=== PATIENT | female | born 1950 | race Caucasian/White ===

== ENCOUNTER 2017-09-08 13:17 | Emergency (ER) | payer MEDICARE ==
[~2017-09-08] VITALS: Ht 167.6 cm; Wt 103.4 kg
--- OUTSIDE RECORDS SUMMARY | 2017-09-08 13:20 | XMS REPORT | Summary of Care ---
Author Author ALLY LONGO M.D. Unknown Address Unknown Phone Unavailable Care Team Providers Care Supervisor Pleating Name Role Phone ALLY LONGO M.D. Unavailable Unavailable CHINMAY ARROYO M.D. 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 Right knee DJD (715.96, M17.11) Status: Active Leg swelling (729.81, M79.89) Status: Active Pain of left calf (729.5, M79.662) Status: Active Edema of right lower extremity (782.3, R60.0) Status: Active Pain of toe of left foot (729.5, M79.675) Status: Active Contusion of knee, left (924.11, S80.02XA) Status: Active Closed nondisplaced fracture of middle phalanx of lesser toe of left foot, initial encounter (826.0, S92.525A) Status: Active Primary localized osteoarthritis of right knee (715.16, M17.11) Status: Active Medications Name Dates Details Aleve TABS Active TraMADol HCl - 50 MG Oral Tablet * Refills: 0 Active Pennsaid 2 % Transdermal Solution Apply 2 pumps to affected area twice a day * Quantity: 1 Refills: 3 CHINMAY ARROYO M.D. * Start : 06-Sep-2015 Active 112 GM Pump Btl Gabapentin 100 MG TABS * Refills: 0 Active Verapamil HCl ER 180 MG Oral Tablet Extended Release * Refills: 0 Active Indapamide 2.5 MG Oral Tablet * Refills: 0 Active Simvastatin 40 MG Oral Tablet * Refills: 0 Active CloNIDine HCl - 0.1 MG Oral Tablet * Refills: 0 Active ROPINIRole HCl - 1 MG Oral Tablet * Refills: 0 Active ROPINIRole HCl - 0.5 MG Oral Tablet * Refills: 0 Active Metrogel 0.75 % Gel * Refills: 0 Active Tylenol Arthritis Pain 8 Hour TBCR * Refills: 0 Active Aspirin 81 MG TABS * Refills: 0 Active Iron TABS * Refills: 0 Active Hydrocodone-Acetaminophen 10-325 MG Oral Tablet take 1-2 tablets every 6 hour prn pain * Quantity: 60 Refills: 0 DONTA M.D., ALLY * Start : 20-Dec-2016 Active Diclofenac Sodium 1 % Transdermal Gel APPLY TO LOWER EXTREMITIES, 4 GM OF GEL TO AFFECTED AREA 4 TIMES DAILY. DO NOT APPLY MORE THAN 16 GM DAILY TO ANY ONE AFFECTED JOINT. * Quantity: 5 Refills: 1 DONTA M.D., ALLY * Start : 31-Jan-2017 Active 100 GM Tube Hydrocodone-Acetaminophen 10-325 MG Oral Tablet take 1-2 tablets every 6 hour prn pain * Quantity: 40 Refills: 0 DONTA M.D., ALLY * Start : 31-Jan-2017 Active Gabapentin 300 MG Oral Capsule TAKE ONE CAPSULE BY MOUTH THREE TIMES A DAY * Quantity: 90 Refills: 1 DONTA M.D., ALLY * Start : 21-Jun-2017 Active Gabapentin 300 MG Oral Capsule TAKE 1 CAPSULE 3 TIMES DAILY. * Quantity: 90 Refills: 2 DONTA M.D., ALLY * Start : 28-May-2017 Active Allergies and Adverse Reactions Name Dates Details Bactrim (Allergy) Status: Active Macrobid (Allergy) Status: Active Past Medical History Name Dates Details History of hypertension (V12.59, Z86.79) Status: Resolved Procedures Procedure Dates Details History of Knee Surgery Completed Immunization Name Dates Details Immunizations not documented Family History Name Dates Details No pertinent family history Status: Active Name Dates Details No pertinent family history Status: Active Social History Name Dates Details - Status: Name Dates Details Never smoker Vital Signs Date Test Result Details [id number] BP Systolic 154 mm[Hg] Status: BP Diastolic 75 mm[Hg] Status: Height 64 in Status: Weight 232 lb Status: Body Mass Index Calculated 39.82 kg/m2 Status: Body Surface Area Calculated 2.08 m2 Status: Heart Rate 74 /min Status: Results Date Description Value Details [id number] [U] XRAY TOE(S) 2 VWS LEFT [id number] XR TOE(S) 2 VWS LEFT Images acquired, not reported on this accession number. [id number] [U] XRAY KNEE 3 VWS LEFT [id number] XR KNEE 3 VWS LEFT Images acquired, not reported on this accession number. Plan of Care Name Dates Details Planned Observations Planned Goals not documented Planned Encounters Appointment; ALLY LONGO M.D. On: 16-Jan-2018 10:30 Interventions Provided Labs/Procedures/Imaging* [U] XRAY KNEE 3 VWS LEFT [id number]; Done: 18 Jul 2017 * [U] XRAY TOE(S) 2 VWS LEFT [id number]; Done: 18 Jul 2017 Instructions* Patient Specific Education Given; Done: 25 Jul 2017 Plan* Completed at Today's Appointment: * buck tape * Patient Education/Instructions: * Patient Education Provided * Reassurance * Physical Activity/ Sports Clearance: Physical Activity: Home exercise program and Patient advised of activity modifications * Patient/Parent to call or return with any abnormal changes * continue to see public relations professional for neuritis * Follow Up: * Return to the clinic in 6 months or as needed. Instructions Name Dates Details Instructions not documented Encounters Appointment; CHINMAY ARROYO M.D. Encounter Diagnosis: Problem not documented On: 01-Sep-2015 10:45 Appointment; ALLY LONGO M.D. Encounter Diagnosis: Problem not documented On: 15-Nov-2016 9:45 Appointment; ALLY LONGO M.D. Encounter Diagnosis: Problem not documented On: 05-Dec-2016 9:00 Appointment; ALLY LONGO M.D. Encounter Diagnosis: Problem not documented On: 20-Dec-2016 10:15 Appointment; ALLY LONGO M.D. Encounter Diagnosis: Problem not documented On: 31-Jan-2017 10:15 Appointment; ALLY LONGO M.D. Encounter Diagnosis: Problem not documented On: 21-Mar-2017 10:15 Appointment; ALLY LONGO M.D. Encounter Diagnosis: Problem not documented On: 18-Jul-2017 10:30
== END 2017-09-08 14:01 | disposition home or self-care (01) ==
LOC: FSED 13:17
DX: R30.0 Dysuria (principal); M54.5 Low back pain
CPT/HCPCS: 81003; 99283

== ENCOUNTER 2018-11-08 11:35 | Emergency (ER) | payer MEDICARE ==
[~2018-11-08] VITALS: Ht 167.6 cm; Wt 103.4 kg
--- OUTSIDE RECORDS SUMMARY | 2018-11-08 11:38 | XMS REPORT | Clinical Summary ---
Author Author [facility] Address Unknown Phone Unavailable Care Team Providers Care Preload Supervisor Name Role Phone PCP Unavailable Allergies Not on File Medications Not on file Active Problems Not on file Social History Date Tobacco Use Types Packs/Day Years Used Never Assessed Sex Assigned at Date Recorded Not on file Industry Job Start Date Occupation Not on file Not on file Not on file Travel End Travel History Travel Start No recent travel history available. Last Filed Vital Signs Not on file Plan of Treatment Care Team Description Date Type Specialty Jacquelin Paredes MD [address] [address] [phone] 12/12/2018 Hospital Gastroenterology Encounter Jacquelin Paredes MD [address] [address] [phone] ENDOSCOPY,CAPSULE PH MONITORING 12/12/2018 Surgery Gastroenterology Jacquelin Paredes MD [address] [address] [phone] 12/16/2018 Hospital Gastroenterology Encounter Jacquelin Paredes MD [address] [address] [phone] REMOVAL,48HR PH GARZON CAPSULE 12/16/2018 Surgery Gastroenterology Results Not on fileafter 11/07/2017 Insurance Payer Benefit Subscriber ID Type Phone Address Plan / Group [employer] - MEDICARE MGD HU[employer]NA xxxxxxxxx [facility] MEDICARE Contracted ADV
--- OUTSIDE RECORDS SUMMARY | 2018-11-08 11:39 | XMS REPORT | Continuity of Care Document ---
Author Author [employer] Address Unknown Phone Unavailable Care Team Providers Care Vision Impaired Teacher Name Role Phone Expert Medical Navigation Unavailable Unavailable Problems Problem Status Onset Date Classification Date Reported Comments Source [place] Active 09/04/2018 [facility] CHEST PAIN Active 09/04/2018 [facility] DX: M25.562=PAIN IN LEFT KNEE RT TKR Active 06/09/2018 [facility] M79.642 Active 05/27/2018 [facility] Low back pain 01/01/2018 07/15/2018 [facility] DX: M54.5=LOW BACK PAIN Active 12/05/2017 [facility] RT KNEE Active 12/20/2016 [facility] RT KNEE OA Active 12/20/2016 [facility] Discharge Diagnosis: Acute postoperative pain of right knee 12/13/2016 12/16/2016 [facility] Discharge Diagnosis: Acute post-operative pain 12/13/2016 12/16/2016 [facility] Discharge Diagnosis: Elevated blood pressure 12/13/2016 12/16/2016 [facility] KNEE PAIN Active 12/13/2016 [facility] RT KNEE OSTEOARTHRITIS Active 11/26/2016 [facility] DX: M79.89=OTHER SPECIFIED SOFT TISSUE D Active 11/20/2016 [facility] 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 09/22/2015 [facility] PELVIC MASS / ROUTINE Active 04/20/2015 [facility] OSTEOPOROSIS Active 03/16/2013 [facility] SCREENING Active 03/05/2013 [facility] SWELLING, PAIN Active 04/15/2012 [facility] Dyslipidemia Active Problem 10/14/2018 [facility] HTN (Confirmed) Active Problem 10/14/2018 [facility] Menopause Resolved Problem 10/14/2018 [facility] Mitral valve prolapse Active Problem 10/14/2018 [facility] Morbid obesity Active Problem 10/14/2018 [facility] Osteoarthritis Active Problem 10/14/2018 [facility] Restless leg syndrome Active Problem 10/14/2018 [facility] Spondylosis without myelopathy or radiculopathy, lumbar region 07/15/2018 [facility] Osteophyte, vertebrae 07/15/2018 [facility] Spinal stenosis, lumbar region without neurogenic claudication 07/15/2018 [facility] ENCNTR SCREEN MAMMOGRAM FOR MALIGNANT NE Active [facility] GENERALIZED INTRA-ABD AND PELVIC SWELLIN Active [facility] RT KNEE, TORN MENISCUS Active [facility] OTHER SPONDYLOSIS WITH MYELOPATHY, CERVI Active [facility] PAIN IN LEFT LOWER LEG Active [facility] UNILATERAL PRIMARY OSTEOARTHRITIS, RIGHT Active [facility] OTHER SPECIFIED SOFT TISSUE DISORDERS Active [facility] ACUTE MYOCARDIAL INFARCTION, UNSPECIFIED Active [facility] Medications Medication Details Route Status Patient Instructions Ordering Provider Order Date Source simvastatin 40 mg oral tablet =1 tab, PO, Daily, # 90 tab, Pharmacy: [place] [id number] Active 09/29/2018 [facility] lisinopril 10 mg oral tablet 10 mg=1 tab, PO, Daily, # 30 tab, 0 Refill(s), Pharmacy: [place] [id number] Active 09/06/2018 [facility] spironolactone 25 mg oral tablet 25 mg=1 tab, PO, Daily, # 30 tab, 0 Refill(s), Pharmacy: [place] [id number] Active 09/06/2018 [facility] metoprolol tartrate 50 mg oral tablet 50 mg=1 tab, PO, Q12H, # 60 tab, 0 Refill(s), Pharmacy: [place] [id number] Active 09/06/2018 [facility] potassium chloride 20 mEq oral tablet, extended release 20 mEq, 1 tab, Route: PO, Drug form: ERTAB, BID, Dosing Weight 107.318, kg, Start date: 09/06/18 9:00:00 CDT, Duration: 30 day, Stop date: 10/05/18 17:00:00 CDTNotes: (Same as: K-Dur 20) "Do Not Crush" Give with food and full glass of water For patients unable to swallow tablet, dissolve in one half glass of water. Allow about 2 minutes for the tablets to disintegrate. Stir before giving to prepare slurry and administer. Please exclude Patients with feeding tube less than 14 Lebanese (Dobhoff, J-tube etc) and pediatric and patients. Inactive 09/06/2018 [facility] Lisinopril 10 mg, 2 tab, Route: PO, Drug form: TAB, Daily, Dosing Weight 107.318, kg, Start date: 09/06/18 9:00:00 CDT, Duration: 30 day, Stop date: 10/05/18 9:00:00 CDTNotes: (Same as: Prinivil, Zestril) Inactive 09/06/2018 [facility] Hydrochlorothiazide 25 MG / Lisinopril 20 MG Oral Tablet 1 tab, Route: PO, Drug Form: TAB, Dosing Weight 107.318, kg, Daily, Start date: 09/06/18 9:00:00 CDT, Duration: 30 day, Stop date: 10/05/18 9:00:00 CDT No Longer Active 09/06/2018 [facility] Potassium Chloride 20 mEq, 1 tab, Route: PO, Drug form: ERTAB, Daily, Dosing Weight 107.318, kg, Start date: 09/06/18 9:00:00 CDT, Duration: 30 day, Stop date: 10/05/18 9:00:00 CDTNotes: (Same as: K-Dur 20) "Do Not Crush" Give with food and full glass of water For patients unable to swallow tablet, dissolve in one half glass of water. Allow about 2 minutes for the tablets to disintegrate. Stir before giving to prepare slurry and administer. Please exclude Patients with feeding tube less than 14 Lebanese (Dobhoff, J-tube etc) and pediatric and patients. No Longer Active 09/06/2018 [facility] Aldactone 25 mg, 1 tab, Route: PO, Drug form: TAB, Daily, Dosing Weight 107.318, kg, Start date: 09/06/18 9:00:00 CDT, Duration: 30 day, Stop date: 10/05/18 9:00:00 CDTNotes: (Same As: Aldactone) Inactive 09/06/2018 [facility] potassium chloride 20 mEq oral tablet, extended release 20 mEq, 1 tab, Route: PO, Drug form: ERTAB, ONCE, Dosing Weight 107.318, kg, Start date: 09/05/18 21:38:00 CDT, Stop date: 09/05/18 21:38:00 CDTNotes: (Same as: K-Dur 20) "Do Not Crush" Give with food and full glass of water For patients unable to swallow tablet, dissolve in one half glass of water. Allow about 2 minutes for the tablets to disintegrate. Stir before giving to prepare slurry and administer. Please exclude Patients with feeding tube less than 14 Lebanese (Dobhoff, J-tube etc) and pediatric and patients. Inactive 09/06/2018 [facility] DME Rx-external wearable defibrillator Inactive 09/06/2018 [facility] Rx-external wearable defibrillator Inactive 09/06/2018 [facility] Aspirin 81 MG Enteric Coated Tablet 81 mg, 1 tab, Route: PO, Drug form: ECTAB, Daily, Dosing Weight 107.318, kg, Start date: 09/05/18 9:00:00 CDT, Duration: 30 day, Stop date: 10/04/18 9:00:00 CDT No Longer Active 09/05/2018 [facility] Aspirin 325 mg, 1 tab, Route: PO, Drug form: TAB, Daily, Dosing Weight 104.545, kg, Start date: 09/05/18 9:00:00 CDT, Duration: 30 day, Stop date: 10/04/18 9:00:00 CDTNotes: Take with food. No Longer Active 09/05/2018 [facility] Potassium Chloride 20 mEq, 1 tab, Route: PO, Drug form: ERTAB, ONCE, Dosing Weight 107.318, kg, Start date: 09/05/18 9:00:00 CDT, Stop date: 09/05/18 9:00:00 CDTNotes: (Same as: K-Dur 20) "Do Not Crush" Give with food and full glass of water For patients unable to swallow tablet, dissolve in one half glass of water. Allow about 2 minutes for the tablets to disintegrate. Stir before giving to prepare slurry and administer. Please exclude Patients with feeding tube less than 14 Lebanese (Dobhoff, J-tube etc) and pediatric and patients. Inactive 09/05/2018 [facility] Plavix 75 mg, 1 tab, Route: PO, Drug form: TAB, Daily, Dosing Weight 104.545, kg, Start date: 09/05/18 9:00:00 CDT, Duration: 30 day, Stop date: 10/04/18 9:00:00 CDTNotes: (Same As: Plavix) No Longer Active 09/05/2018 [facility] Verapamil 180 mg, 1 tab, Route: PO, Drug form: ERTAB, QAM, Dosing Weight 107.318, kg, Start date: 09/05/18 9:00:00 CDT, Duration: 30 day, Stop date: 10/04/18 9:00:00 CDTNotes: Do not crush or chew. (Same As: Calan SR, Isoptin SR) "Avoid grapefruit and grapefruit juice" No Longer Active 09/05/2018 [facility] ferrous sulfate 325 mg, 1 tab, Route: PO, Drug form: ECTAB, Daily, Dosing Weight 107.318, kg, Start date: 09/05/18 9:00:00 CDT, Duration: 30 day, Stop date: 10/04/18 9:00:00 CDTNotes: Give with food. "Do Not Crush" No Longer Active 09/05/2018 [facility] Potassium Chloride 20 mEq, 1 tab, Route: PO, Drug form: ERTAB, ONCE, Dosing Weight 107.318, kg, Priority: NOW, Start date: 09/04/18 22:04:00 CDT, Stop date: 09/04/18 22:04:00 CDTNotes: (Same as: K-Dur 20) "Do Not Crush" Give with food and full glass of water For patients unable to swallow tablet, dissolve in one half glass of water. Allow about 2 minutes for the tablets to disintegrate. Stir before giving to prepare slurry and administer. Please exclude Patients with feeding tube less than 14 Lebanese (Dobhoff, J-tube etc) and pediatric and patients. Inactive 09/05/2018 [facility] Potassium Chloride 10 mEq, 100 mL, Route: IVPB, Drug form: INJ, Q1H, Dosing Weight 107.318, kg, Total Dose=20 meq, Priority: Routine, Start date: 09/04/18 22:00:00 CDT, Duration: 2 doses or times, Stop date: 09/04/18 23:00:00 CDT, Peripheral LineNotes: Infuse at a rate of 10 mEq/hr. (Same as: KCL) Inactive 09/05/2018 [facility] Lipitor 40 mg, 1 tab, Route: PO, Drug form: TAB, Bedtime, Dosing Weight 104.545, kg, Start date: 09/04/18 21:00:00 CDT, Duration: 30 day, Stop date: 10/03/18 21:00:00 CDTNotes: (Same as: Lipitor) Inactive 09/05/2018 [facility] metoprolol tartrate 50 mg, 1 tab, Route: PO, Drug form: TAB, Q12H, Dosing Weight 104.545, kg, Start date: 09/04/18 21:00:00 CDT, Duration: 30 day, Stop date: 10/04/18 9:00:00 CDTNotes: (Same as: Lopressor) No Longer Active 09/05/2018 [facility] heparin 5,000 unit, 1 mL, Route: SUB-Q, Drug form: INJ, Q12H, Dosing Weight 104.545, kg, Start date: 09/04/18 21:00:00 CDT, Stop date: 10/04/18 9:00:00 CDTNotes: porcine heparin Inactive 09/05/2018 [facility] Simvastatin 40 mg, 1 tab, Route: PO, Drug form: TAB, Bedtime, Dosing Weight 107.318, kg, Start date: 09/04/18 21:00:00 CDT, Duration: 30 day, Stop date: 10/03/18 21:00:00 CDTNotes: (Same as: Zocor) No Longer Active 09/05/2018 [facility] gabapentin 300 MG Oral Capsule 300 mg, 1 cap, Route: PO, Drug form: CAP, Q12H, Dosing Weight 107.318, kg, Start date: 09/04/18 21:00:00 CDT, Duration: 30 day, Stop date: 10/04/18 9:00:00 CDTNotes: (Same as: Neurontin) No Longer Active 09/05/2018 [facility] Amiodarone 150 mg, 3 mL, Route: IVPB, ONCE, Dosing Weight 107.318, kg, Start date: 09/04/18 19:00:00 CDT, Stop date: 09/04/18 19:00:00 CDTNotes: Central administration only for concentrations > 2 mg/ml. "Recommendation: Use an in-line filter during administration for continuous infusions to reduce the incidence of phlebitis" (Same as Codarone) MEDICATION WASTE Product Size: 150 mg Product Wasted: ___ mg Inactive 09/05/2018 [facility] AMIODarone 900 mg in D5W 500 ml IV 900 mg + Dextrose 5% in Water IV 482 mL 900 mg, 18 mL, Rate: 1 mg/min for 6 hours, then reduce to 0.5 mg/min, Dosing Weight 107.318, kg, Route: IV, Total Volume: 500, Start Date: 09/04/18 18:37:00 CDT, Duration: 30 day, Stop date: 10/04/18 18:36:00 CDT, Replace Every: 24 hrNotes: Central administration only for concentration > 2 mg/ml. Use Glass Bottle or Non PVC Bag "Use 0.22 micron in-line filter" MEDICATION WASTE Product Size: 900 mg Product Wasted: ___ mg No Longer Active 09/04/2018 [facility] Clonidine Hydrochloride 0.1 MG Oral Tablet 0.1 mg, 1 tab, Route: PO, Drug form: TAB, BID, Dosing Weight 107.318, kg, Start date: 09/04/18 17:00:00 CDT, Duration: 30 day, Stop date: 10/04/18 9:00:00 CDTNotes: (Same As: Catapres) No Longer Active 09/04/2018 [facility] Requip 1 mg, 1 tab, Route: PO, Drug form: TAB, TID, Dosing Weight 107.318, kg, Start date: 09/04/18 17:00:00 CDT, Duration: 30 day, Stop date: 10/04/18 13:00:00 CDTNotes: (Same as: Requip) No Longer Active 09/04/2018 [facility] ropinirole 1 MG Oral Tablet [Requip] 1 mg=1 tab, PO, TID, # 90 tab, 0 Refill(s) Active 09/04/2018 [facility] Lovenox 40 mg, 0.4 mL, Route: SUB-Q, Drug form: INJ, [id number], Dosing Weight 104.545, kg, Start date: 09/04/18 13:00:00 CDT, Duration: 30 day, Stop date: 10/03/18 13:00:00 CDTNotes: (Same as: Lovenox) No Longer Active 09/04/2018 [facility] Acetaminophen 650 mg, 2 tab, Route: PO, Drug form: TAB, Q4H, Dosing Weight 104.545, kg, PRN Pain Score 7-10, Start date: 09/04/18 12:12:00 CDT, Duration: 30 day, Stop date: 10/04/18 12:11:00 CDTNotes: Do not exceed 4 gm/day. (Same as: Tylenol) No Longer Active 09/04/2018 [facility] Glucagon 1 mg, Route: IM, Drug form: PDR/INJ, PRN, Dosing Weight 104.545, kg, PRN Blood Glucose Results, Start date: 09/04/18 10:48:00 CDT, Duration: 30 day, Stop date: 10/04/18 10:47:00 CDT No Longer Active 09/04/2018 [facility] Dextrose 50% Syringe 25 gm, 50 mL, Route: IVP, Drug Form: INJ, Dosing Weight 104.545, kg, PRN, PRN Blood Glucose Results, Start date: 09/04/18 10:48:00 CDT, Duration: 30 day, Stop date: 10/04/18 10:47:00 CDT No Longer Active 09/04/2018 [facility] Plavix 300 mg, 1 tab, Route: PO, Drug form: TAB, ONCE, Dosing Weight 104.545, kg, Priority: STAT, Start date: 09/04/18 9:40:00 CDT, Stop date: 09/04/18 9:40:00 CDTNotes: ( Same as: Plavix) Inactive 09/04/2018 [facility] Heparin - one time bolus for ACS 4,000 unit, 4 mL, Route: IVP, Drug form: INJ, ONCE, Dosing Weight 104.545, kg, Priority: STAT, Start date: 09/04/18 7:26:00 CDT, Stop date: 09/04/18 7:26:00 CDT Inactive 09/04/2018 [facility] Heparin 60 unit/kg Bolus (Heparin Dosing Weight) Route: IVP, PRN, 4,500 unit, 4.5 mL, Drug form: INJ, PRN, Heparin Protocol, Start date: 09/04/18 7:26:00 CDT Stop date: 10/04/18 7:25:00 CDT, 30 day Inactive 09/04/2018 [facility] Heparin 30 unit/kg Bolus (Heparin Dosing Weight) Route: IVP, PRN, 2,200 unit, 2.2 mL, Drug form: INJ, PRN, Heparin Protocol, Start date: 09/04/18 7:26:00 CDT Stop date: 10/04/18 7:25:00 CDT, 30 day Inactive 09/04/2018 [facility] heparin additive 25,000 unit [12 unit/kg/hr] + Premix Diluent Dextrose 5% 500 mL 500 mL, Rate: 17.91 ml/hr, Infuse over: 27.9 hr, Route: IV, Dosing Weight 74.64 kg, Total Volume: 500 mL, Start date: 09/04/18 7:26:00 CDT, Duration: 30 day, Stop date: 10/04/18 7:25:00 CDT, 1.86, m2 Inactive 09/04/2018 [facility] Nitroglycerin 0.4 mg, Route: SL, ONCE, Dosing Weight 104.545, kg, Priority: STAT, Start date: 09/04/18 7:16:00 CDT, Stop date: 09/04/18 7:16:00 CDT Inactive 09/04/2018 [facility] Aspirin 325 mg, Route: PO, Drug form: TAB, ONCE, Dosing Weight 104.545, kg, Priority: STAT, Start date: 09/04/18 7:15:00 CDT, Stop date: 09/04/18 7:15:00 CDT Inactive 09/04/2018 [facility] potassium chloride 8 mEq oral capsule, extended release =1 cap, PO, BID, # 60 unknown unit, Refill(s) 2, Pharmacy: [place] [id number] On Hold 09/02/2018 [facility] Indapamide 2.5 MG Oral Tablet =1 tab, PO, Daily, # 90 tab, Pharmacy: [place] [id number] Active 08/25/2018 [facility] verapamil 180 mg oral tablet, extended release =1 tab, PO, QAM, # 90 unknown unit, Pharmacy: [place] [id number] Active 08/25/2018 [facility] simvastatin 40 mg oral tablet =1 tab, PO, Daily, # 90 tab, Pharmacy: [place] [id number] Active 07/01/2018 [facility] Metronidazole 0.0075 MG/MG Topical Gel See Instructions, # 45 unknown unit, APPLY A THIN LAYER TO AFFECTED AREA TWICE DAILY, Pharmacy: [place] [id number] Active 05/30/2018 [facility] Indapamide 2.5 MG Oral Tablet =1 tab, PO, Daily, # 90 tab, Pharmacy: [place] [id number] Active 05/30/2018 [facility] verapamil 180 mg oral tablet, extended release =1 tab, PO, QAM, # 90 unknown unit, Pharmacy: [place] [id number] Active 05/30/2018 [facility] Clonidine Hydrochloride 0.1 MG Oral Tablet =1 tab, PO, BID, # 180 tab, 1 Refill(s), Pharmacy: [place] [id number] Active 05/30/2018 [facility] Vitamin B12 0 Refill(s) Active 05/15/2018 [facility] simvastatin 40 mg oral tablet =1 tab, PO, Daily, # 90 tab, Pharmacy: [place] [id number] No Longer Active 03/25/2018 [facility] Indapamide 2.5 MG Oral Tablet See Instructions, # 90 tab, TAKE ONE TABLET BY MOUTH DAILY, Pharmacy: [place] [id number] No Longer Active 03/03/2018 [facility] verapamil 180 mg oral tablet, extended release See Instructions, # 90 unknown unit, TAKE ONE TABLET BY MOUTH EVERY MORNING, Pharmacy: [place] [id number] No Longer Active 01/10/2018 [facility] verapamil 180 mg oral tablet, extended release See Instructions, # 90 unknown unit, TAKE ONE TABLET BY MOUTH EVERY MORNING, Pharmacy: [place] [id number] No Longer Active 10/28/2017 [facility] Indapamide 2.5 MG Oral Tablet 2.5 mg=1 tab, PO, Daily, # 90 tab, 0 Refill(s), Pharmacy: [place] [id number] Active 09/13/2017 [facility] verapamil 180 mg oral tablet, extended release See Instructions, # 90 unknown unit, TAKE ONE TABLET BY MOUTH EVERY MORNING, Pharmacy: [place] [id number] Active 08/08/2017 [facility] Indapamide 2.5 MG Oral Tablet See Instructions, # 30 tab, TAKE ONE TABLET BY MOUTH DAILY, Pharmacy: [place] [id number] Active 08/08/2017 [facility] Clonidine Hydrochloride 0.1 MG Oral Tablet See Instructions, # 60 tab, Refill(s) 1, TAKE ONE TABLET BY MOUTH TWICE A DAY, Pharmacy: [place] [id number] Active 07/25/2017 [facility] Clonidine Hydrochloride 0.1 MG Oral Tablet 0.1 mg=1 tab, PO, BID, # 180 tab, 0 Refill(s), Pharmacy: [place] [id number] No Longer Active 07/25/2017 [facility] Indapamide 2.5 MG Oral Tablet See Instructions, # 30 tab, TAKE ONE TABLET BY MOUTH DAILY, Pharmacy: [place] [id number] No Longer Active 07/05/2017 [facility] simvastatin 40 mg oral tablet See Instructions, # 90 tab, TAKE ONE TABLET BY MOUTH DAILY, Pharmacy: [place] [id number] Active 07/05/2017 [facility] Clonidine Hydrochloride 0.1 MG Oral Tablet 0.1 mg=1 tab, PO, ONCE, 0 Refill(s) No Longer Active 07/02/2017 [facility] verapamil 180 mg oral tablet, extended release 180 mg=1 tab, PO, QAM, # 90 tab, 0 Refill(s), Pharmacy: [place] [id number] No Longer Active 05/29/2017 [facility] simvastatin 40 mg oral tablet See Instructions, # 90 tab, TAKE ONE TABLET BY MOUTH DAILY, Pharmacy: [place] [id number] Active 03/21/2017 [facility] Metronidazole 0.0075 MG/MG Topical Gel See Instructions, # 45 unknown unit, Refill(s) 1, APPLY A THIN LAYER TO AFFECTED AREA TWICE DAILY, Pharmacy: [place] [id number] Active 03/21/2017 [facility] verapamil 180 mg oral tablet, extended release See Instructions, # 90 unknown unit, TAKE ONE TABLET BY MOUTH EVERY MORNING, Pharmacy: [place] [id number] Active 03/04/2017 [facility] Acetaminophen 300 MG / Codeine Phosphate 30 MG Oral Tablet [Tylenol with Codeine #3] 1 - 2 tab, PO, Q4H, PRN Pain, X 4 day, # 50 tab, 0 Refill(s) Active 12/13/2016 [facility] Cyclobenzaprine hydrochloride 10 MG Oral Tablet [Flexeril] 10 mg, PO, TID, PRN Muscle Spasm, X 10 day, # 30 tab, 0 Refill(s) Active 12/13/2016 [facility] potassium chloride 20 mEq oral tablet, extended release 40 mEq, 2 tab, Route: PO, Drug form: ERTAB, ONCE, Dosing Weight 104.545, kg, Priority: STAT, Start date: 12/13/16 18:28:00 CDT, Stop date: 12/13/16 18:28:00 CDTNotes: (Same as: K-Dur 20) "Do Not Crush" With food and full glass of water Inactive 12/13/2016 [facility] Zofran ODT 8 mg, 2 tab, Route: PO, Drug form: TABDIS, ONCE, Dosing Weight 104.545, kg, Priority: STAT, Start date: 12/13/16 18:28:00 CDT, Stop date: 12/13/16 18:28:00 CDTNotes: (Same as: Zofran ODT) Inactive 12/13/2016 [facility] Acetaminophen 325 MG / Hydrocodone Bitartrate 10 MG Oral Tablet [Brick 10/325] 1 tab, Route: PO, Drug Form: TAB, Dosing Weight 104.545, kg, ONCE, STAT, Start date: 12/13/16 18:28:00 CDT, Stop date: 12/13/16 18:28:00 CDTNotes: Do not exceed 4gm/day of acetaminophen. (Same as: Brick 325/10) Inactive 12/13/2016 [facility] Clonidine 0.1mg/12 hr ER tablet Clonidine 0.1mg/12 hr ER tablet, 0.1 mg/12 hr ER tab, Drug form: MISC, Route: PO, Bedtime, 12/06/16 21:00:00 CDT, Duration: 30 day, Stop date: 01/04/17 21:00:00 CDT Inactive 12/07/2016 [facility] Aspirin 325 MG Enteric Coated Tablet 325 mg=1 tab, PO, Q12H, # 42 tab, 0 Refill(s), Pharmacy: [place] [id number] Active 12/06/2016 [facility] Milk of Magnesia 30 ml, Route: PO, Drug Form: SUSP, Dosing Weight 104.545, kg, Daily, Start date: 12/06/16 9:00:00 CDT, Duration: 30 day, Stop date: 01/04/17 9:00:00 CDTNotes: (Same as: Milk of Magnesia, MOM) Inactive 12/06/2016 [facility] Indapamide 2. 5mg tablet Indapamide 2. 5mg tablet, 2.5 mg, Drug form: MISC, Route: PO, QAM, 12/06/16 9:00:00 CDT, Duration: 30 day, Stop date: 01/04/17 9:00:00 CDT Inactive 12/06/2016 [facility] Acetaminophen 325 MG / Hydrocodone Bitartrate 10 MG Oral Tablet [Brick 10/325] 2 tab, PO, Q4H, PRN Pain Score 4-6, 0 Refill(s) Active 12/06/2016 [facility] Thyroxine 25 microgram, 1 tab, Route: PO, Drug form: TAB, Daily, Dosing Weight 106.591, kg, Start date: 12/06/16 6:30:00 CDT, Duration: 30 day, Stop date: 01/04/17 6:30:00 CDTNotes: Take 1 hour before or 2 hours after meal; Enteral feeds may interefere with the absorption of this medication. (Same as:Levothroid) Inactive 12/06/2016 [facility] Dulcolax Laxative 10 mg, 2 tab, Route: PO, Drug form: ECTAB, Bedtime, Dosing Weight 104.545, kg, Start date: 12/05/16 21:00:00 CDT, Duration: 30 day, Stop date: 01/03/17 21:00:00 CDTNotes: (Same As: Dulcolax, Correctol) (Do Not Crush) "Do Not Crush" No Longer Active 12/06/2016 [facility] 12 HR Clonidine Hydrochloride 0.1 MG Extended Release Tablet 0.1 mg, 1 tab, Route: PO, Drug form: ERTAB, Bedtime, Dosing Weight 106.591, kg, Start date: 12/05/16 21:00:00 CDT, Duration: 30 day, Stop date: 01/03/17 21:00:00 CDT Inactive 12/06/2016 [facility] Simvastatin 40 mg, 2 tab, Route: PO, Drug form: TAB, Bedtime, Dosing Weight 106.591, kg, Start date: 12/05/16 21:00:00 CDT, Duration: 30 day, Stop date: 01/03/17 21:00:00 CDTNotes: (Same as: Zocor) No Longer Active 12/06/2016 [facility] Metronidazole 1% topical gel Metronidazole 1% topical gel, topical, Drug form: MISC, Route: TOP, BID, 12/05/16 17:00:00 CDT, Duration: 30 day, Stop date: 01/04/17 9:00:00 CDT No Longer Active 12/05/2016 [facility] ferrous sulfate 325 MG Oral Tablet [Feosol] 325 mg, 1 tab, Route: PO, Drug form: TAB, BID, Dosing Weight 104.545, kg, Start date: 12/05/16 17:00:00 CDT, Duration: 30 day, Stop date: 01/04/17 9:00:00 CDTNotes: Give with food. iron elemental [id number] as ferrous sulfate Dose=___mg elemental iron No Longer Active 12/05/2016 [facility] Docusate Sodium 100 MG Oral Capsule [Colace] 100 mg, 1 cap, Route: PO, Drug form: CAP, BID, Dosing Weight 104.545, kg, Start date: 12/05/16 17:00:00 CDT, Duration: 30 day, Stop date: 01/04/17 9:00:00 CDTNotes: (Same as: Colace) (Do Not Crush) No Longer Active 12/05/2016 [facility] Aspirin 325 MG Enteric Coated Tablet 325 mg, Route: PO, Drug form: ECTAB, BID, Dosing Weight 106.591, kg, Start date: 12/05/16 17:00:00 CDT, Duration: 30 day, Stop date: 01/04/17 9:00:00 CDT Inactive 12/05/2016 [facility] gabapentin 300 MG Oral Capsule 300 mg, 1 cap, Route: PO, Drug form: CAP, BID, Dosing Weight 106.591, kg, Start date: 12/05/16 17:00:00 CDT, Duration: 30 day, Stop date: 01/04/17 9:00:00 CDTNotes: (Same as: Neurontin) No Longer Active 12/05/[facility] Tranexamic Acid 1 gm, 10 mL, Route: IVPB, ONCE, Dosing Weight 106.591, kg, Start date: 12/05/16 16:18:00 CDT, Stop date: 12/05/16 16:18:00 CDTNotes: (Same As: Cyklokapron) Inactive 12/05/2016 [facility] Aspirin 325 mg, 1 tab, Route: PO, Drug form: ECTAB, Q12H, Dosing Weight 106.591, kg, For patients with risk of bleeding, Start date: 12/05/16 14:19:00 CDT, Duration: 30 day, Stop date: 01/04/17 9:00:00 CDTNotes: (Do Not Crush) Do not crush or chew. No Longer Active 12/05/2016 [facility] Cefazolin 1 gm, Route: IVPB, Q6H-02, Dosing Weight 106.591, kg, Start date: 12/05/16 14:00:00 CDT, Duration: 3 doses or times, Stop date: 12/06/16 2:00:00 CDT, ABX Indication: Surgical ProphylaxisNotes: (Same As: Christina Peter) MEDICATION WASTE Product Size: 1000 mg Product Wasted: ___ mg No Longer Active 12/05/2016 [facility] Requip 1 mg, 1 tab, Route: PO, Drug form: TAB, ONCE, Dosing Weight 106.591, kg, Start date: 12/05/16 13:47:00 CDT, Stop date: 12/05/16 13:47:00 CDTNotes: (Same as: Requip) Inactive 12/05/2016 [facility] Clindamycin 600 mg, 50 mL, Route: IVPB, Drug form: INJ, Q6H, Dosing Weight 106.591, kg, Start date: 12/05/16 13:00:00 CDT, Duration: 3 doses or times, Stop date: 12/06/16 1:00:00 CDT, ABX Indication: Surgical Pr ophylaxis No Longer Active 12/05/2016 [facility] Famotidine 20 MG Oral Tablet [Pepcid] 20 mg, 1 tab, Route: PO, Drug form: TAB, Q12H, Dosing Weight 104.545, kg, PRN Indigestion, Start date: 12/05/16 10:18:00 CDT, Duration: 30 day, Stop date: 01/04/17 10:17:00 CDTNotes: (Same as: Pepcid) No Longer Active 12/05/2016 [facility] Morphine 5 mg, 0.5 mL, Route: IVP, Drug form: INJ, Q3H, Dosing Weight 104.545, kg, PRN Pain Score 6-10, For breakthrough pain, Start date: 12/05/16 10:18:00 CDT, Duration: 30 day, Stop date: 01/04/17 10:17:00 CDTNotes: (Same as:MORPhine Sulfate) No Longer Active 12/05/2016 [facility] Acetaminophen 325 MG / Hydrocodone Bitartrate 10 MG Oral Tablet [Brick 10/325] 2 tab, Route: PO, Drug Form: TAB, Dosing Weight 104.545, kg, Q4H, PRN Pain Score 4-6, Start date: 12/05/16 10:18:00 CDT, Duration: 30 day, Stop date: 01/04/17 10:17:00 CDTNotes: Do not exceed 4gm/day of acetaminophen. (Same as: Brick 325/10) No Longer Active 12/05/2016 [facility] Maalox Advanced Regular Strength SUSP 30 mL, Route: PO, Drug Form: SUSP, Dosing Weight 104.545, kg, Q4H, PRN Indigestion, Start date: 12/05/16 10:18:00 CDT, Duration: 30 day, Stop date: 01/04/17 10:17:00 CDTNotes: (aluminum hydroxide-magnesium hyd- simethicone [phone]/5ml TONYA) (Same as: Maalox Plus Extra Strength) No Longer Active 12/05/2016 [facility] acetaminophen 325 mg oral tablet 650 mg, 2 tab, Route: PO, Drug form: TAB, Q6H, Dosing Weight 104.545, kg, PRN For Temp > 100.4 F, Start date: 12/05/16 10:18:00 CDT, Duration: 30 day, Stop date: 01/04/17 10:17:00 CDTNotes: Do not exceed 4 gm/day. (Same as: Tylenol) No Longer Active 12/05/2016 [facility] Zofran 4 mg, 2 mL, Route: IV, Drug form: INJ, Q6H, Dosing Weight 104.545, kg, PRN Nausea, Start date: 12/05/16 10:18:00 CDT, Duration: 30 day, Stop date: 01/04/17 10:17:00 CDTNotes: (Same as: Zofran) MEDICATION WASTE Product Size: 4 mg Product Wasted: ___ mg No Longer Active 12/05/2016 [facility] Acetaminophen 325 MG / Oxycodone Hydrochloride 5 MG Oral Tablet [Percocet 5/325] 2 tab, Route: PO, Drug Form: TAB, Dosing Weight 104.545, kg, Q4H, PRN Pain Score 7-10, Start date: 12/05/16 10:18:00 CDT, Duration: 30 day, Stop date: 01/04/17 10:17:00 CDTNotes: Do not exceed 4gm/day of acetaminophen. (Same as: Percocet-5/325) No Longer Active 12/05/2016 [facility] Milk of Magnesia 30 ml, Route: PO, Drug Form: SUSP, Dosing Weight 104.545, kg, Q6H, PRN as needed for constipation, Start date: 12/05/16 10:18:00 CDT, Duration: 30 day, Stop date: 01/04/17 10:17:00 CDTNotes: (Same as: Milk of Magnesia, MOM) No Longer Active 12/05/2016 [facility] Dulcolax Laxative 10 mg, 1 supp, Route: MO, Drug form: SUPP, ONCE, Dosing Weight 104.545, kg, PRN as needed for constipation, Start date: 12/05/16 10:18:00 CDTNotes: (Same As: Dulcolax, Bisco-Lax) No Longer Active 12/05/2016 [facility] Lactated Ringers 1,000 mL 1,000 mL, Rate: 75 ml/hr, Infuse over: 13.3 hr, Route: IV, Dosing Weight 106.591 kg, Total Volume: 1,000, Start date: 12/05/16 10:18:00 CDT, Duration: 30 day, Stop date: 01/04/17 10:17:00 CDT No Longer Active 12/05/2016 [facility] Lorazepam 0.5 mg, 0.25 mL, Route: IVP, Drug form: INJ, Q20Min, Dosing Weight 106.591, kg, PRN Anxiety, Start date: 12/05/16 9:11:00 CDT, Duration: 3 doses or times, Stop date: 12/05/16 14:00:00 CDTNotes: (Same as: Ativan) Inactive 12/05/2016 [facility] Albuterol 0.83 MG/ML Inhalant Solution 2.49 mg, 3 mL, Route: NEB, Drug form: SOLN, PRN, Dosing Weight 106.591, kg, PRN Respiratory Protocol, Start date: 12/05/16 9:11:00 CDT, Duration: 30 day, Stop date: 01/04/17 9:10:00 CDTNotes: SEE RT DOCUMENTATION (Same as: Proventil) Inactive 12/05/2016 [facility] Ondansetron 4 mg, 2 mL, Route: IVP, Drug form: INJ, ONCE, Dosing Weight 106.591, kg, PRN Nausea & Vomiting, Start date: 12/05/16 9:11:00 CDTNotes: (Same as: Amanda) MEDICATION WASTE Product Size: 4 mg Product Wasted: ___ mg Inactive 12/05/2016 [facility] Morphine 2 mg, 0.2 mL, Route: IVP, Drug form: INJ, Q5Min, Dosing Weight 106.591, kg, PRN Pain Score 4-6, Start date: 12/05/16 9:11:00 CDT, Duration: 5 doses or times, Stop date: 12/05/16 14:00:00 CDTNotes: (Same as:MORPhine Sulfate) Inactive 12/05/2016 [facility] Diphenhydramine 12.5 mg, 0.25 mL, Route: IVP, Drug form: INJ, Q6H, Dosing Weight 106.591, kg, PRN Itching, Start date: 12/05/16 9:11:00 CDT, Stop date: 12/05/16 14:00:00 CDTNotes: (Same as: Benadryl) Inactive 12/05/2016 [facility] Oxycodone 10 mg, 2 tab, Route: PO, Drug form: TAB, Q4H, Dosing Weight 106.591, kg, PRN Pain Score 7-10, Start date: 12/05/16 9:11:00 CDT, Stop date: 12/05/16 14:00:00 CDTNotes: (Same as: Roxicodone) Inactive 12/05/2016 [facility] Naloxone 0.4 mg, 1 mL, Route: IVP, Drug form: INJ, Q2MIN, Dosing Weight 106.591, kg, PRN Narcotic Reversal, Start date: 12/05/16 9:11:00 CDT, Duration: 8 doses or times, Stop date: Limited # of timesNotes: Same as Narcan Inactive 12/05/2016 [facility] Flumazenil 0.2 mg, 2 mL, Route: IVP, Drug form: INJ, PRN, Dosing Weight 106.591, kg, PRN Benzodiazepine Reversal, Initial dose, Start date: 12/05/16 9:11:00 CDT, Stop date: 12/05/16 14:00:00 CDTNotes: (Same as: Romazicon) Inactive 12/05/2016 [facility] Hydralazine 10 mg, 0.5 mL, Route: IVP, Drug form: INJ, Q20Min, Dosing Weight 106.591, kg, PRN Elevated BP, Start date: 12/05/16 9:11:00 CDT, Duration: 2 doses or times, Stop date: 12/05/16 14:00:00 CDTNotes: (Same as: Apresoline) Push over 5 minutes Inactive 12/05/2016 [facility] Metronidazole 0.0075 MG/MG Topical Gel Route: TOP, BID, Drug form: GEL, Start date: 12/05/16 9:00:00 CDT, Duration: 30 day, Stop date: 01/03/17 17:00:00 CDT Inactive 12/05/2016 [facility] Indapamide 2.5 MG Oral Tablet 1 tab, Route: PO, Drug form: TAB, QAM, Dosing Weight 106.591, kg, Start date: 12/05/16 9:00:00 CDT, Duration: 30 day, Stop date: 01/03/17 9:00:00 CDT Inactive 12/05/2016 [facility] ropinirole 1 mg, 1 tab, Route: PO, Drug form: TAB, BID, Dosing Weight 106.591, kg, Start date: 12/05/16 9:00:00 CDT, Duration: 30 day, Stop date: 01/03/17 17:00:00 CDTNotes: (Same as: Requip) No Longer Active 12/05/2016 [facility] Potassium Chloride 20 mEq, 200 mL, Route: IV, Drug form: INJ, ONCE, Dosing Weight 106.591, kg, Start date: 12/05/16 7:10:00 CDT, Stop date: 12/05/16 7:10:00 CDTNotes: Infuse at a rate of 10 mEq/hr. (Same as: KCL) Inactive 12/05/2016 [facility] 72 HR Scopolamine 0.0139 MG/HR Transdermal Patch 1 patch, Route: TOP, Drug Form: ERFILM, Dosing Weight 106.591, kg, PRE OP, Start date: 12/05/16 7:00:00 CDT, Stop date: 12/05/16 10:00:00 CDTNotes: Change patch every 72 hours (Same as: Transderm-Scop) Inactive 12/05/2016 [facility] polymyxin B sulfate + sodium chloride 0.9% 250 mL INJ (for IV set) 250 mL 125,000 unit, Route: IRRIG, ONCALL, Start date: 12/05/16 7:00:00 CDT, Duration: 1 doses or times, Stop date: 12/05/16 13:00:00 CDTNotes: (Same as: Polymyxin B Sulfate) Inactive 12/05/2016 [facility] ropivacaine 100 mL, Route: InFILtration(local), Drug Form: INJ, ONCALL, Start date: 12/05/16 7:00:00 CDT, Stop date: 12/05/16 12:00:00 CDTNotes: NOT FOR IV use Ropivacaine 5 mg/mL (49.25 mL) Epinephrine 1 m g/mL (0.5 mL) Clonidine 0.1 mg/mL (0.8 mL) Ketorolac 30 mg/mL (1 mL) Normal Saline 48.45 mL Inactive 12/05/2016 [facility] vancomycin + sodium chloride 0.9% 250 mL INJ (for IV set) 250 mL 500 mg, Route: IRRIG, ONCALL, Start date: 12/05/16 7:00:00 CDT, Duration: 1 doses or times, Stop date: 12/05/16 13:00:00 CDT, ABX Indication: Surgical ProphylaxisNotes: TIME CRITICAL MEDICATION (Same As: Vancocin) Inactive 12/05/2016 [facility] Hydroxyzine 25 mg, Route: PO, Drug form: CAP, ONCE, Dosing Weight 106.591, kg, PRN Itching, Start date: 12/05/16 6:53:00 CDT Inactive 12/05/2016 [facility] remove patch 1 patch, Route: TOP, Drug form: ERFILM, ONCE, Start date: 12/05/16 6:38:00 CDT, Stop date: 12/05/16 6:38:00 CDTNotes: Remove old patch before application of new patch. Inactive 12/05/2016 [facility] Ofirmev 1,000 mg, 100 mL, Route: IV, Drug form: INJ, ONCE, Dosing Weight 106.591, kg, for > or=50 kg, Start date: 12/05/16 6:23:00 CDT, Stop date: 12/05/16 6:23:00 CDTNotes: Infuse over 15 minutes Do not exceed 4gm/day of acetaminophen MEDICATION WASTE Product Size: 1000 mg Product Wasted: ___ mg Inactive 12/05/2016 [facility] Oxycontin 10 mg, 1 tab, Route: PO, Drug form: ERTAB, ONCE, Dosing Weight 106.591, kg, Start date: 12/05/16 6:23:00 CDT, Stop date: 12/05/16 6:23:00 CDTNotes: Do not crush or chew. (Same as: OxyContin) Inactive 12/05/2016 [facility] Vancomycin 1,500 mg, 250 mL, Route: IVPB, Drug form: INJ, ONCE, Dosing Weight 106.591, kg, Start date: 12/05/16 6:23:00 CDT, Stop date: 12/05/16 6:23:00 CDT, ABX Indication: Surgical ProphylaxisNotes: TIME CRITICAL MEDICATION Same as: Vancocin-NS (premixed) Infusion rate 2001 mg: infuse over 2.5 hours Inactive 12/05/2016 [facility] Dexamethasone 4 mg, 1 mL, Route: IVP, Drug form: INJ, ONCE, Dosing Weight 106.591, kg, Start date: 12/05/16 6:23:00 CDT, Stop date: 12/05/16 6:23:00 CDTNotes: Concentration: 4mg/ml Inactive 12/05/2016 [facility] Celebrex 400 mg, 2 cap, Route: PO, Drug form: CAP, ONCE, Dosing Weight 106.591, kg, Start date: 12/05/16 6:23:00 CDT, Stop date: 12/05/16 6:23:00 CDTNotes: NSAID. Please check indication. Not for seizure. (Sa me As: CeleBREX) Inactive 12/05/2016 [facility] Zofran 4 mg, 2 mL, Route: IVP, Drug form: INJ, ONCE, Dosing Weight 106.591, kg, Start date: 12/05/16 6:02:00 CDT, Stop date: 12/05/16 6:02:00 CDTNotes: (Same as: Zofran) MEDICATION WASTE Product Size: 4 mg Product Wasted: ___ mg Inactive 12/05/2016 [facility] 8 HR Acetaminophen 650 MG Extended Release Tablet [Tylenol] 1,300 mg=2 tab, PO, PRN, 0 Refill(s) Active 11/27/2016 [facility] tramadol hydrochloride 50 MG Oral Tablet 50 mg=1 tab, PO, PRN, PRN Pain, # 40 tab, 0 Refill(s) Active 11/27/2016 [facility] rOPINIRole 0.5 mg oral tablet 0.5 mg=1 tab, PO, Daily, # 90 tab, 0 Refill(s) No Longer Active 11/27/2016 [facility] rOPINIRole 1 mg oral tablet 1 mg=1 tab, PO, BID, # 90 tab, 0 Refill(s) Active 11/27/2016 [facility] ferrous sulfate 325 MG Oral Tablet 325 mg=1 tab, PO, Daily, # 270 tab, 0 Refill(s) Active 11/27/2016 [facility] gabapentin 100 MG Oral Capsule 100 mg=1 cap, PO, BID, # 90 cap, 1 Refill(s) Active 11/27/2016 [facility] Naproxen sodium 220 MG Oral Tablet [Aleve] 440 mg=2 tab, PO, PRN, PRN Pain, # 60 tab, 0 Refill(s) Active 11/27/2016 [facility] aspirin 81 mg tablet, enteric coated 81 mg=1 tab, PO, Daily, # 90 tab, 3 Refill(s) No Longer Active 11/27/2016 [facility] 12 HR Clonidine Hydrochloride 0.1 MG Extended Release Tablet 0.1 mg=1 tab, PO, Bedtime, # 30 tab, 0 Refill(s) Active 11/27/2016 [facility] Allergies, Adverse Reactions, Alerts Substance Category Reaction Severity Reaction type Status Date Reported Comments Source Nitrofurantoin Unknown Allergy to Substance Active 09/08/2017 [facility] Pyridium Assertion Drug allergy Active [facility] Macrobid Assertion Nausea/vomiting Drug allergy Active [facility] Immunizations Immunization Date Given Site Status Last Updated Comments Source pneumococcal 13-valent vaccine 12/05/2016 [facility] Results Order Name Results Value Reference Range Date Interpretation Comments Source CARDIAC ENZYMES Troponin-I 36.00 0.00 - 0.40 09/04/2018 Result Comment: Critical Result(s) called to dung amos at 09/04/2018 20:25 by ms. Read back OK. [facility] CHEM PANEL Magnesium Lvl 2.1 1.8 - 2.4 09/04/2018 [facility] ELECTROLYTES Potassium Lvl 3.2 3.5 - 5.1 09/04/2018 [facility] HEMATOLOGY Hgb 13.5 12.0 - 16.0 09/04/2018 [facility] RBC 4.59 4.20 - 5.40 09/04/2018 [facility] HEMATOLOGY WBC 11.7 3.7 - 10.4 09/04/2018 [facility] Platelet 209 133 - 450 09/04/2018 [facility] MPV 10.1 7.4 - 10.4 09/04/2018 [facility] RDW 13.7 11.5 - 14.5 09/04/2018 [facility] MCHC 33.3 32.0 - 36.0 09/04/2018 [facility] Hct 40.7 36.0 - 48.0 09/04/2018 [facility] MCH 29.5 27.0 - 31.0 09/04/2018 [facility] MCV 88.6 80.0 - 98.0 09/04/2018 [facility] Neutrophils # 8.8 1.5 - 8.1 09/04/2018 [facility] Basophils 0.9 0.0 - 1.0 09/04/2018 [facility] Lymphocytes # 1.6 1.0 - 5.5 09/04/2018 [facility] Monocytes # 1.0 0.0 - 0.8 09/04/2018 [facility] Eosinophils # 0.2 0.0 - 0.5 09/04/2018 [facility] Basophils # 0.1 0.0 - 0.2 09/04/2018 [facility] Eosinophils 2.1 0.0 - 4.0 09/04/2018 [facility] Segs 75.4 45.0 - 75.0 09/04/2018 [facility] Lymphocytes 13.4 20.0 - 40.0 09/04/2018 [facility] Monocytes 8.2 2.0 - 12.0 09/04/2018 [facility] CARDIAC ENZYMES Troponin-I 38.00 0.00 - 0.40 09/04/2018 Result Comment: Critical Result(s) called to Elva Velásquez at 09/04/2018 14:43 by DMF. Read back OK. [facility] CHEM PANEL eGFR 78 09/04/2018 Result Comment: The eGFR is calculated using the CKD-EPI formula. In most young, healthy individuals the eGFR will be >90 mL/min/1.73m2. The eGFR declines with age. An eGFR of 60-89 may be normal in some populations, particularly the elderly, for whom the CKD-EPI formula has not been extensively validated. Use of the eGFR is not recommended in the following populations:

Individuals with unstable creatinine concentrations, including patients and those with serious co-morbid conditions.

Patients with extremes in muscle mass or diet.

The data above are obtained from the National Kidney Disease Education Program (NKDEP) which additionally recommends that when the eGFR is used in patients with extremes of body mass index for purposes of drug dosing, the eGFR should be multiplied by the estimated BMI. [facility] CHEM PANEL Creatinine Lvl 0.78 0.50 - 1.40 09/04/2018 [facility] HEMATOLOGY Hgb 14.1 12.0 - 16.0 09/04/2018 [facility] CARDIAC ENZYMES Troponin-I 3.70 0.00 - 0.40 09/04/2018 Result Comment: Critical Result(s) called to Pedro Matias at 09/04/2018 08:56 by DMF. Read back OK. [facility] CARDIAC ENZYMES BNP 135 <=100 pg/mL 09/04/2018 [facility] CARDIAC ENZYMES Total CK 157 12 - 191 09/04/2018 [facility] CHEM PANEL Phosphorus 3.4 2.5 - 4.5 09/04/2018 [facility] CHEM PANEL Magnesium Lvl 2.1 1.8 - 2.4 09/04/2018 [facility] CHEM PANEL eGFR 65 09/04/2018 Result Comment: The eGFR is calculated using the CKD-EPI formula. In most young, healthy individuals the eGFR will be >90 mL/min/1.73m2. The eGFR declines with age. An eGFR of 60-89 may be normal in some populations, particularly the elderly, for whom the CKD-EPI formula has not been extensively validated. Use of the eGFR is not recommended in the following populations:

Individuals with unstable creatinine concentrations, including patients and those with serious co-morbid conditions.

Patients with extremes in muscle mass or diet.

The data above are obtained from the National Kidney Disease Education Program (NKDEP) which additionally recommends that when the eGFR is used in patients with extremes of body mass index for purposes of drug dosing, the eGFR should be multiplied by the estimated BMI. [facility] CHEM PANEL Glucose Lvl 109 70 - 99 09/04/2018 [facility] CHEM PANEL BUN 18 7 - 22 09/04/2018 [facility] CHEM PANEL Creatinine Lvl 0.92 0.50 - 1.40 09/04/2018 [facility] CHEM PANEL Chloride Lvl 108 95 - 109 09/04/2018 [facility] CHEM PANEL CO2 23 24 - 32 09/04/2018 [facility] CHEM PANEL Sodium Lvl 142 135 - 145 09/04/2018 [facility] CHEM PANEL Potassium Lvl 3.4 3.5 - 5.1 09/04/2018 [facility] CHEM PANEL Calcium Lvl 8.6 8.5 - 10.5 09/04/2018 [facility] CHEM PANEL AST 19 0 - 37 09/04/2018 [facility] CHEM PANEL Alk Phos 55 39 - 136 09/04/2018 [facility] CHEM PANEL Albumin Lvl 3.7 3.5 - 5.0 09/04/2018 [facility] CHEM PANEL ALT 17 0 - 65 09/04/2018 [facility] CHEM PANEL Total Protein 7.1 6.4 - 8.4 09/04/2018 [facility] CHEM PANEL Bili Total 0.5 0.2 - 1.3 09/04/2018 [facility] CHEM PANEL Globulin 3.4 2.7 - 4.2 09/04/2018 [facility] CHEM PANEL A/G Ratio 1.1 0.7 - 1.6 09/04/2018 [facility] CHEM PANEL B/C Ratio 20 6 - 25 09/04/2018 [facility] CHEM PANEL AGAP 14.4 10.0 - 20.0 09/04/2018 [facility] CHEM PANEL Lipase Lvl 118 73 - 393 09/04/2018 [facility] HEMATOLOGY INR 0.88 0.85 - 1.17 09/04/2018 [facility] HEMATOLOGY PT 11.8 12.0 - 14.7 09/04/2018 [facility] HEMATOLOGY MCHC 33.5 32.0 - 36.0 09/04/2018 [facility] HEMATOLOGY MCH 29.3 27.0 - 31.0 09/04/2018 [facility] HEMATOLOGY MCV 87.5 80.0 - 98.0 09/04/2018 [facility] HEMATOLOGY Hct 42.0 36.0 - 48.0 09/04/2018 [facility] HEMATOLOGY Hgb 14.1 12.0 - 16.0 09/04/2018 [facility] HEMATOLOGY RBC 4.80 4.20 - 5.40 09/04/2018 [facility] HEMATOLOGY WBC 8.0 3.7 - 10.4 09/04/2018 [facility] Platelet 216 133 - 450 09/04/2018 [facility] RDW 13.6 11.5 - 14.5 09/04/2018 [facility] MPV 10.0 7.4 - 10.4 09/04/2018 [facility] PTT 28.9 22.9 - 35.8 09/04/2018 [facility] Basophils # 0.1 0.0 - 0.2 09/04/2018 [facility] Eosinophils # 0.5 0.0 - 0.5 09/04/2018 [facility] Lymphocytes # 1.6 1.0 - 5.5 09/04/2018 [facility] Monocytes # 0.6 0.0 - 0.8 09/04/2018 [facility] Segs 64.9 45.0 - 75.0 09/04/2018 [facility] Lymphocytes 20.6 20.0 - 40.0 09/04/2018 [facility] Basophils 1.4 0.0 - 1.0 09/04/2018 [facility] Neutrophils # 5.2 1.5 - 8.1 09/04/2018 [facility] Monocytes 7.2 2.0 - 12.0 09/04/2018 [facility] Eosinophils 5.9 0.0 - 4.0 09/04/2018 [facility] CHEM PANEL eGFR 74 12/13/2016 Result Comment: The eGFR is calculated using the CKD-EPI formula. In most young, healthy individuals the eGFR will be >90 mL/min/1.73m2. The eGFR declines with age. An eGFR of 60-89 may be normal in some populations, particularly the elderly, for whom the CKD-EPI formula has not been extensively validated. Use of the eGFR is not recommended in the following populations:

Individuals with unstable creatinine concentrations, including patients and those with serious co-morbid conditions.

Patients with extremes in muscle mass or diet.

The data above are obtained from the National Kidney Disease Education Program (NKDEP) which additionally recommends that when the eGFR is used in patients with extremes of body mass index for purposes of drug dosing, the eGFR should be multiplied by the estimated BMI. [facility] CHEM PANEL Total Protein 7.6 6.4 - 8.4 12/13/2016 [facility] CHEM PANEL Albumin Lvl 3.4 3.5 - 5.0 12/13/2016 [facility]M PANEL Globulin 4.2 2.7 - 4.2 12/13/2016 [facility] CHEM PANEL A/G Ratio 0.8 0.7 - 1.6 12/13/2016 [facility] CHEM PANEL ALT 19 0 - 65 12/13/2016 [facility] CHEM PANEL AST 24 0 - 37 12/13/2016 [facility] CHEM PANEL Bili Total 0.8 0.2 - 1.3 12/13/2016 [facility] CHEM PANEL Alk Phos 73 39 - 136 12/13/2016 [facility] CHEM PANEL B/C Ratio 14 6 - 25 12/13/2016 [facility] CHEM PANEL Glucose Lvl 100 70 - 99 12/13/2016 [facility] CHEM PANEL BUN 12 7 - 22 12/13/2016 [facility] CHEM PANEL Creatinine Lvl 0.83 0.50 - 1.40 12/13/2016 [facility] CHEM PANEL Sodium Lvl 138 135 - 145 12/13/2016 [facility] CHEM PANEL Chloride Lvl 100 95 - 109 12/13/2016 [facility] CHEM PANEL CO2 31 24 - 32 12/13/2016 [facility] CHEM PANEL Potassium Lvl 2.9 3.5 - 5.1 12/13/2016 Result Comment: Critical Result(s) called to Elizabeth Harkins at 12/13/2016 15:41 by [email or web address]. Read back OK. [facility] CHEM PANEL Calcium Lvl 9.1 8.5 - 10.5 12/13/2016 [facility] CHEM PANEL AGAP 9.9 10.0 - 20.0 12/13/2016 [facility] HEMATOLOGY Sed Rate 36 0 - 20 12/13/2016 [facility] HEMATOLOGY Basophils # 0.1 0.0 - 0.2 12/13/2016 [facility] HEMATOLOGY Lymphocytes 16.2 20.0 - 40.0 12/13/2016 [facility] HEMATOLOGY Monocytes 6.8 2.0 - 12.0 12/13/2016 [facility] HEMATOLOGY Segs 74.5 45.0 - 75.0 12/13/2016 [facility] HEMAT[facility] Basophils 0.9 0.0 - 1.0 12/13/2016 [facility] HEMATOLOGY Eosinophils 1.6 0.0 - 4.0 12/13/2016 [facility] HEMATOLOGY Monocytes # 0.8 0.0 - 0.8 12/13/2016 [facility] HEMATOLOGY Eosinophils # 0.2 0.0 - 0.5 12/13/2016 [facility] HEMATOLOGY Segs-Bands # 8.5 1.5 - 8.1 12/13/2016 [facility] Lymphocytes # 1.9 1.0 - 5.5 12/13/2016 [facility] HEMATOLOGY MCV 86.9 80.0 - 98.0 12/13/2016 [facility] MCH 29.3 27.0 - 31.0 12/13/2016 [facility] Hgb 14.1 12.0 - 16.0 12/13/2016 [facility] Hct 42.0 36.0 - 48.0 12/13/2016 [facility] MPV 9.1 7.4 - 10.4 12/13/2016 [facility] Platelet 294 133 - 450 12/13/2016 [facility] MCHC 33.7 32.0 - 36.0 12/13/2016 [facility] [facility] RDW 13.6 11.5 - 14.5 12/13/2016 [facility] WBC 11.4 3.7 - 10.4 12/13/2016 [facility] RBC 4.83 4.20 - 5.40 12/13/2016 [facility] IMMUNOLOGY C-REACTIVE PROTEIN 39.4 <=2.9 mg/L 12/13/2016 [facility] CHEM PANEL Calcium Lvl 8.3 8.5 - 10.5 12/06/2016 [facility]M PAN[facility] CO2 27 24 - 32 12/06/2016 [facility] CHEM PANEL Creatinine Lvl 0.98 0.50 - 1.40 12/06/2016 [facility] CHEM PANEL Potassium Lvl 3.5 3.5 - 5.1 12/06/2016 [facility] CHEM PANEL Sodium Lvl 140 135 - 145 12/06/2016 [facility] CHEM PANEL Chloride Lvl 104 95 - 109 12/06/2016 [facility] CHEM PANEL eGFR 60 12/06/2016 Result Comment: The eGFR is calculated using the CKD-EPI formula. In most young, healthy individuals the eGFR will be >90 mL/min/1.73m2. The eGFR declines with age. An eGFR of 60-89 may be normal in some populations, particularly the elderly, for whom the CKD-EPI formula has not been extensively validated. Use of the eGFR is not recommended in the following populations:

Individuals with unstable creatinine concentrations, including patients and those with serious co-morbid conditions.

Patients with extremes in muscle mass or diet.

The data above are obtained from the National Kidney Disease Education Program (NKDEP) which additionally recommends that when the eGFR is used in patients with extremes of body mass index for purposes of drug dosing, the eGFR should be multiplied by the estimated BMI. [facility] CHEM PANEL Glucose Lvl 222 70 - 99 12/06/2016 [facility] CHEM PANEL BUN 12 7 - 22 12/06/2016 [facility] CHEM PANEL AGAP 12.5 10.0 - 20.0 12/06/2016 [facility] HEMATOLOGY Hgb 12.1 12.0 - 16.0 12/06/2016 [facility] HEMATOLOGY Hct 37.0 36.0 - 48.0 12/06/2016 [facility] ELECTROLYTES Potassium Lvl 3.2 3.5 - 5.1 12/05/2016 [facility] BLOOD BANK RESULTS ABO/Rh A POS 11/29/2016 [facility] BLOOD BANK RESULTS Antibody Scrn Negative (11/29/16 12:30 PM) 11/29/2016 [facility] CHEM PANEL eGFR 64 11/29/2016 Result Comment: The eGFR is calculated using the CKD-EPI formula. In most young, healthy individuals the eGFR will be >90 mL/min/1.73m2. The eGFR declines with age. An eGFR of 60-89 may be normal in some populations, particularly the elderly, for whom the CKD-EPI formula has not been extensively validated. Use of the eGFR is not recommended in the following populations:

Individuals with unstable creatinine concentrations, including patients and those with serious co-morbid conditions.

Patients with extremes in muscle mass or diet.

The data above are obtained from the National Kidney Disease Education Program (NKDEP) which additionally recommends that when the eGFR is used in patients with extremes of body mass index for purposes of drug dosing, the eGFR should be multiplied by the estimated BMI. [facility] CHEM PANEL Calcium Lvl 9.1 8.5 - 10.5 11/29/2016 [facility] CHEM PANEL AGAP 12.0 10.0 - 20.0 11/29/2016 [facility] CHEM PANEL Chloride Lvl 103 95 - 109 11/29/2016 [facility] CHEM PANEL CO2 29 24 - 32 11/29/2016 [facility] CHEM PANEL Glucose Lvl 91 70 - 99 11/29/2016 [facility] CHEM PANEL BUN 16 7 - 22 11/29/2016 [facility] CHEM PANEL Potassium Lvl 3.0 3.5 - 5.1 11/29/2016 Result Comment: Critical Result(s) called to Kelly More RN at 1350 on 11/29/16 by TH. Read back OK. [facility] CHEM PANEL Creatinine Lvl 0.93 0.50 - 1.40 11/29/2016 [facility] CHEM PANEL Sodium Lvl 141 135 - 145 11/29/2016 [facility] HEMATOLOGY Basophils 1.2 0.0 - 1.0 11/29/2016 [facility] HEMATOLOGY Segs-Bands # 5.9 1.5 - 8.1 11/29/2016 [facility] HEMATOLOGY Eosinophils 3.2 0.0 - 4.0 11/29/2016 [facility] HEMATOLOGY Monocytes 9.8 2.0 - 12.0 11/29/2016 [facility] HEMATOLOGY Monocytes # 0.9 0.0 - 0.8 11/29/2016 [facility] HEMATOLOGY Lymphocytes # 2.0 1.0 - 5.5 11/29/2016 [facility] HEMATOLOGY Eosinophils # 0.3 0.0 - 0.5 11/29/2016 [facility] HEMATOLOGY Basophils # 0.1 0.0 - 0.2 11/29/2016 [facility] HEMATOLOGY Segs 64.1 45.0 - 75.0 11/29/2016 [facility] HEMATOLOGY Lymphocytes 21.7 20.0 - 40.0 11/29/2016 [facility] HEMATOLOGY MPV 9.9 7.4 - 10.4 11/29/2016 [facility] HEMATOLOGY Platelet 234 133 - 450 11/29/2016 [facility] HEMATOLOGY MCH 28.8 27.0 - 31.0 11/29/2016 [facility] HEMATOLOGY MCV 86.0 80.0 - 98.0 11/29/2016 [facility] HEMATOLOGY RDW 13.4 11.5 - 14.5 11/29/2016 [facility] HEMATOLOGY MCHC 33.4 32.0 - 36.0 11/29/2016 [facility] HEMATOLOGY RBC 4.65 4.20 - 5.40 11/29/2016 [facility] HEMATOLOGY WBC 9.2 3.7 - 10.4 11/29/2016 [facility] HEMATOLOGY Hgb 13.4 12.0 - 16.0 11/29/2016 [facility] HEMATOLOGY Hct 40.0 36.0 - 48.0 11/29/2016 [facility] Pathology Reports No Data Provided for This Section Diagnostic Reports Report Value Date Source Chest 1view DX Clinical Indication: - cp; Comparison: None FINDINGS: The portable AP single view radiograph provided for review. The exam demonstrates normal lung volumes without interstitial or airspace opacities, pleural effusions or pneumothorax. The heart size and pulmonary vasculature are normal. The trachea is midline. There are no clinically significant osseous abnormalities noted. IMPRESSION: No chest radiographic evidence of acute cardiopulmonary disease. SL: DELFINO 09/04/2018 [facility] Knee wo contrast MRI EXAM: Left knee wo contrast MRI INDICATION: - M25.562 LT knee pain, unspecified chronicity COMPARISON: Plain films of the left knee from 05/27/18 TECHNIQUE: Multiplanar, multisequence magnetic resonance imaging of the left knee was performed without the administration of intravenous gadolinium contrast. FINDINGS: Intercondylar notch: Anterior cruciate ligament and posterior cruciate ligament are intact. Medial compartment: Mild joint space narrowing is seen with low-grade partial- thickness cartilage fissuring along the central weightbearing portion of the medial femoral condyle. Intrasubstance degeneration throughout the medial meniscus body and posterior horn is seen. There is a superimposed horizontal oblique tear of the medial meniscus posterior horn which exits into the inferior articular surface. Medial collateral ligament is intact. Lateral compartment: Horizontal tear of the lateral meniscus anterior body and anterior horn is seen, exiting into the superior articular surface. No focal chondral defect is present. Lateral collateral ligament complex is intact. Posterolateral corner structures are intact. Patellofemoral compartment: Full-thickness chondrosis with underlying cystic change along the superior median patellar eminence is seen. Scattered deep full- thickness cartilage fissures with mild underlying cystic changes along the lateral trochlea are seen. The medial and lateral patellofemoral retinaculum are intact. Extensor mechanism: Quadriceps and patellar tendons are intact. Other findings: Physiologic joint fluid is seen. IMPRESSION: 1. Mild medial femorotibial compartment osteoarthrosis with low-grade chondrosis along the medial femoral condyle. 2. Intrasubstance degeneration throughout the medial meniscus body and posterior horn with superimposed horizontal oblique tear of the posterior horn, exiting into the inferior articular surface. 3. Horizontal tear of the lateral meniscus anterior body and anterior horn, exiting into the superior articular surface. 4. High-grade chondromalacia of the patellofemoral compartment. SL: [id number] 06/24/2018 [facility] Hand 2 views Bilateral DX Patient Name: ELBA LANGFORD : 1950 Age: 68 years, Female MR: [id number] Study: Hand 2 views Bilateral DX 05/27/2018 10:47 MACHINE II TRIMMER Indication: - M79.642 Pain in left hand, M79.641 Pain in right hand. Technique: Hands, bilateral, 2 views Comparison: None Findings: Bones: No acute displaced fracture. No expansile lytic or sclerotic lesion. Joints: The joint spaces are well-maintained. No dislocation. No effusion. Soft tissues: No soft tissue swelling is present. No radiopaque foreign body. No subcutaneous air is visualized. IMPRESSION: No acute radiographic abnormality. SL: [id number] 05/27/2018 [facility] Knee 3 views DX Patient Name: ELBA LANGFORD : 1950; Age: 68 years y/o Female MR: [id number] * LEFT KNEE, 3 views History: left knee pain Technique : Frontal, lateral and oblique radiographs of the left knee were obtained. FINDINGS: There is no evidence of a significant joint effusion. There is no evidence of fracture, dislocation, or acute change. There are no destructive lesions. There are no degenerative changes or other significant osseous abnormalities. There is a tiny (2 mm) foreign body which appears to be within the knee joint, posterior to the region of the tibial spines. No other radiopaque foreign body is seen. IMPRESSION: 1. No osteoarticular abnormalities are seen involving the left knee. 2. There is a tiny (2 mm) foreign body which appears to be within the knee joint, posterior to the region of the tibial spines. No other radiopaque foreign body is seen. SL: [id number] 05/27/2018 [facility] Spine lumbar wo contrast MRI Patient Name: ELBA LANGFORD : 1950; Age: 67 years Female MR: [id number] Study: Spine lumbar wo contrast MRI 12/26/2017 10:11 AM CDT Clinical Indication: - M54.5 Low back pain. Patient complains of lower back pain, and weakness and bilateral legs. She states she has previously collapsed before due to weakness. Pt denies injury or trauma. COMPARISON: None TECHNIQUE: Multiplanar T1, T2, STIR weighted noncontrast MRI of the lumbar spine is performed on the 1.5 Hetal magnet. 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 For the sake of nomenclature, five lumbar vertebrae are assumed. There is normal alignment of the lumbar spine. The bone marrow is normal for the patient's age. There is no compression fracture. The anterior and posterior paraspinal soft tissues are normal. The conus medullaris ends at the L1 level. DISC SPACES: T12-L1: The disc is normal. There is no central canal stenosis. There is no foraminal stenosis. The facet joints are normal. L1-L2: The disc is normal. There is no central canal stenosis. There is no foraminal stenosis. The facet joints are normal. L2-L3: Small broad-based disc bulge with posterior annular fissuring. There is no central canal stenosis. Mild bilateral foraminal stenosis. The facet joints are normal. L3-L4: Broad-based disc osteophyte complex. There is no central canal stenosis. Bilateral ligamentum flavum hypertrophy. Mild right, severe left foraminal stenosis with possible impingement of the exiting left L3 nerve root. Mild facet arthritic change bilaterally. L4-L5: Small broad-based disc bulge with posterior annular fissuring. There is no central canal stenosis. Moderate left, mild right foraminal stenosis with possible impingement of the exiting left L4 nerve root. Moderate facet change bilaterally. L5-S1: Broad-based disc osteophyte complex. There is no central canal stenosis. Moderate right foraminal stenosis with possible impingement of the exiting right L5 nerve root. Mild left foraminal stenosis. Minimal facet arthritic change bilaterally. IMPRESSION: 1. Transitional vertebrae as described above, 5 lumbar vertebrae bodies are assumed. 2. L3-L4 possible impingement of the exiting left L3 nerve root. 3. L4-L5 possible impingement of the exiting left L4 nerve root. 4. L5-S1 possible impingement of the exiting right L5 nerve root. 5. Multilevel disc abnormalities and facet arthritic change as described above. SL: [id number] 12/26/2017 [facility] Lower Venous Doppler Unilat US EXAM: Right lower extremity venous Doppler ultrasound HISTORY: Right lower extremity swelling, recent knee replacement COMPARISON: None TECHNIQUE: Sonographic evaluation of the right lower extremity deep veins was performed using high resolution B-mode imaging, along with pulse and color Doppler imaging. FINDINGS: The common femoral, femoral and popliteal veins and greater saphenous and posterior tibial veins are patent. IMPRESSION: No deep vein thrombosis is seen in the right lower extremity. SL: TVU-PC DVT 12/13/2016 [facility] Knee 3 views DX Right knee 3 views: A right total knee arthroplasty seen in satisfactory position. There is no evidence of fractures or loosening. Anterior skin mallika are noted. There has been interval resolution of postoperative soft tissue gas since the postoperative radiographs on 12/05/2016. There is no other significant change. [id number] 12/13/2016 [facility] Knee 1-2 Views unilateral DX EXAM: XR RIGHT KNEE 2 VIEWS DATE: 12/05/2016 10:18 AM CDT INDICATION: post operative total knee replacement COMPARISON: None available TECHNIQUE: Right knee - 2 views FINDINGS: Satisfactory appearance of total right knee arthroplasty with patellar resurfacing noted. No periprosthetic lucency or hardware failure identified. Joint alignment is normal. Expected postoperative soft tissue edema and air present anteriorly. Air and fluid present within the suprapatella bursa. Anterior midline skin closure mallika noted. IMPRESSION: Satisfactory immediate postoperative appearance of total right knee arthroplasty. 12/05/2016 [facility] Lower Venous Doppler Unilat US Patient Name: ELBA LANGFORD : 1950; Age: 66 years Female MR: [id number] Study: Ext Lower Venous Doppler Unilat US 11/23/2016 9:38 AM CDT CLINICAL INDICATION: - M79.89 Other specified soft tissue disorders. Right knee pain COMPARISON: None TECHNIQUE: Sonographic evaluation of the right lower extremity veins was performed using high resolution B-mode imaging, along with pulse and color Doppler imaging. FINDINGS: Right lower extremity: The common femoral vein, femoral vein, popliteal vein and visualized posterior tibial/calf veins are patent and compressible. The saphenofemoral junction and visualized greater saphenous vein are patent and compressible. IMPRESSION: No evidence of deep venous thrombosis within the right lower extremity. SL: [id number] 11/23/2016 [facility] Spine cervical wo contrast MRI MRI CERVICAL SPINE WITHOUT CONTRAST INDICATION: Cervical spine pain and upper extremity numbness COMPARISON: None DISCUSSION: Alignment: Vertebral body alignment is within normal limits. Craniocervical junction: No significant abnormalities. The foramen magnum is patent. Vertebral bodies: Degenerative endplate changes are noted at C5-C6 and C6-C7. The vertebral bodies are otherwise normal in height and signal, from C2 through T3. Spinal cord: Normal in signal and morphology, from the cervicomedullary junction through T3-T4. Paraspinal soft tissues: No signal abnormalities are visualized. Disc spaces, spinal canal and foramina: C2-C3: The disc is normal in height and signal. There is left facet arthrosis, without spinal canal or foraminal stenosis. C3-C4: The disc is normal in height and signal. Right uncovertebral and facet arthrosis result in mild right foraminal stenosis. The spinal canal and left foramen are patent. C4-C5: The disc is normal in height and signal. There is no significant arthrosis. The spinal canal and foramina are patent. C5-C6: Disc height is maintained. There is posterior disc osteophyte complex, without spinal canal stenosis. Right uncovertebral arthrosis results in mild right foraminal stenosis. The left foramen is patent. C6-C7: There is mild loss of disc height. There is posterior disc osteophyte complex, without spinal canal stenosis. There is no significant arthrosis. The foramina are patent. C7-T1: The disc is normal in height and signal. There is no significant arthrosis. The spinal canal and foramina are patent. IMPRESSION: Mild cervical spondylosis, as described. Foraminal stenosis is mild at worst. There is no spinal canal stenosis. SL:16 09/27/2015 [facility] Digital Mammo Screening Brandon MA - DIGITAL MAMMO SCREENING BRANDON MA BILATERAL DIGITAL SCREENING MAMMOGRAM WITH CAD: 04/26/2015 CLINICAL: Other Screening Mammogram. Current study was evaluated with a Computer Aided Detection (CAD) system. Comparison is made to exams dated: 03/10/2013 mammogram, 10/05/2011 mammogram, 09/29/2010 mammogram, 08/15/2006 mammogram - [facility] and 11/25/2003. The tissue of both breasts is almost entirely fat. There are benign scattered calcifications in both breasts. No significant masses, calcifications, or other findings are seen in either breast. There has been no significant interval change. IMPRESSION: BENIGN There is no mammographic evidence of malignancy. A 1 year screening mammogram is recommended. Divya daniels/penrad:04/26/2015 13:27:22 Blanket Cutter Hand: Mariely Tran, [facility] This exam was dictated and interpreted by [id number] for [facility]. letter sent: Normal exam Mammogram BI-RADS: 2 Benign 04/26/2015 [facility] Pelvis w Pelvis Transvaginal US TRANSABDOMINAL PELVIC ULTRASOUND; TRANSVAGINAL ULTRASOUND: HISTORY: Pelvic mass on physical exam. The patient is post menopausal. FINDINGS: Transabdominal and transvaginal evaluation of the pelvis was done. The images are technically limited by an unfilled bladder. The uterus is 7.1 cm in length and 2.8 x 3.7 cm in transverse dimension. The endometrium is 5 mm in thickness. There is a 1.5 cm hypoechoic area in the central uterus suspicious for a fibroid. There is no evidence of other mass or intrauterine . Bladder is empty. The right ovary is 1.4 x 1.0 x 0.9 cm in size. The left ovary is 1.6 x 1.4 x 0.6 cm in size. There is no evidence of cysts, adnexal masses, or free fluid in the pelvis. IMPRESSION: 1. Limited study. 2. Possible small central uterine fibroid. 3. No other significant ultrasound abnormalities in the pelvis. SL:13 04/26/2015 [facility] Digital Mammo Screening Brandon MA - DIGITAL MAMMO SCREENING BRANDON MA BILATERAL DIGITAL SCREENING MAMMOGRAM WITH CAD: 03/10/2013 CLINICAL: Routine. Current study was evaluated with a Computer Aided Detection (CAD) system. Comparison is made to exams dated: 10/05/2011 mammogram, 09/29/2010 mammogram, 08/15/2006 mammogram - [facility] and 11/25/2003. Current study contains 5 films. The tissue of both breasts is predominantly fatty. There are benign scattered calcifications in both breasts. No significant masses, calcifications, or other findings are seen in either breast. There has been no significant interval change. IMPRESSION: BENIGN There is no mammographic evidence of malignancy. A screening mammogram in one year is recommended. Francisco lazot/:03/11/2013 08:52:48 Blanket Cutter Hand: Ailyn Price, [facility] This exam was dictated and interpreted by [id number] at [facility], SL 13. letter sent: Normal exam Mammogram BI-RADS: 2 Benign 03/10/2013 [facility] Knee series RIGHT KNEE RADIOGRAPH 4 VIEWS INDICATION: Pain and swelling COMPARISON: None FINDINGS: No fractures or dislocations are seen. There is mild joint space narrowing and osteophytosis of the medial and patellofemoral compartments. There is mild irregularity of the contour of the medial femoral condyle. There is no subchondral sclerosis. The lateral compartment is relatively preserved. The soft tissues are radiographically unremarkable. IMPRESSION: 1. No acute bony abnormalities are visualized. 2. Mild to moderate medial and patellofemoral compartment arthrosis. SL: 16 02/04/2013 [facility] Consultation Notes No Data Provided for This Section Discharge Summaries No Data Provided for This Section History and Physicals No Data Provided for This Section Vital Signs Vital Sign Value Date Comments Source Systolic (mm Hg) 118 09/06/2018 [facility] Diastolic (mm Hg) 72 09/06/2018 [facility] Heart Rate 48 09/06/2018 [facility] Respitory Rate 18 09/06/2018 [facility] Temperature Oral (F) 97.4 F 09/06/2018 [facility] Heart Rate 54 09/06/2018 [facility] Temperature Oral (F) 98.0 F 09/06/2018 [facility] Respitory Rate 18 09/06/2018 [facility] Systolic (mm Hg) 120 09/06/2018 [facility] Diastolic (mm Hg) 70 09/06/2018 [facility] Temperature Oral (F) 98.2 F 09/06/2018 [facility] Respitory Rate 18 09/06/2018 [facility] Systolic (mm Hg) 130 09/06/2018 [facility] Diastolic (mm Hg) 70 09/06/2018 [facility] Heart Rate 58 09/06/2018 [facility] Weight 107.318 09/04/2018 [facility] BMI Calculated 40.61 09/04/2018 [facility] Height 162.56 cm 09/04/2018 [facility] Weight 104.545 09/04/2018 [facility] Height 162.56 cm 09/04/2018 [facility] BMI Calculated 39.56 09/04/2018 [facility] Weight 103.182 05/27/2018 [facility] Height 162.56 cm 05/27/2018 [facility] BMI Calculated 39.05 05/27/2018 [facility] Temperature Oral (F) 98.2 F 05/27/2018 [facility] Heart Rate 80 05/27/2018 [facility] Systolic (mm Hg) 147 05/27/2018 [facility] Diastolic (mm Hg) 84 05/27/2018 [facility] BMI Calculated 39.23 05/15/2018 [facility] Weight 100.455 05/15/2018 [facility] Height 160.02 cm 05/15/2018 [facility] Systolic (mm Hg) 136 05/15/2018 [facility] Diastolic (mm Hg) 69 05/15/2018 [facility] Temperature Oral (F) 98.1 F 05/15/2018 [facility] Heart Rate 73 05/15/2018 [facility] Heart Rate 64 07/02/2017 [facility] Systolic (mm Hg) 135 07/02/2017 [facility] Diastolic (mm Hg) 78 07/02/2017 [facility] Temperature Oral (F) 97.6 F 07/02/2017 [facility] Weight 109.091 07/02/2017 [facility] BMI Calculated 41.28 07/02/2017 [facility] Height 162.56 cm 07/02/2017 [facility] Respitory Rate 18 12/14/2016 [facility] Heart Rate 70 12/14/2016 [facility] Temperature Oral (F) 97.5 F 12/14/2016 [facility] Systolic (mm Hg) 142 12/14/2016 [facility] Diastolic (mm Hg) 81 12/14/2016 [facility] Heart Rate 69 12/13/2016 [facility] Systolic (mm Hg) 147 12/13/2016 [facility] Diastolic (mm Hg) 85 12/13/2016 [facility] Respitory Rate 18 12/13/2016 [facility] Temperature Oral (F) 97.5 F 12/13/2016 [facility] BMI Calculated 39.56 12/13/2016 [facility] Weight 104.545 12/13/2016 [facility] Height 162.56 cm 12/13/2016 [facility] Temperature Oral (F) 98.4 F 12/13/2016 [facility] Heart Rate 75 12/13/2016 [facility] Respitory Rate 18 12/13/2016 [facility] Systolic (mm Hg) 164 12/13/2016 [facility] Diastolic (mm Hg) 100 12/13/2016 [facility] Systolic (mm Hg) 128 12/06/2016 [facility] Diastolic (mm Hg) 64 12/06/2016 [facility] Temperature Oral (F) 98.0 F 12/06/2016 [facility] Respitory Rate 17 12/06/2016 [facility] Heart Rate 67 12/06/2016 [facility] Respitory Rate 16 12/06/2016 [facility] Systolic (mm Hg) 120 12/06/2016 [facility] Diastolic (mm Hg) 55 12/06/2016 [facility] Temperature Oral (F) 97.5 F 12/06/2016 [facility] Heart Rate 69 12/06/2016 [facility] Heart Rate 70 12/06/2016 [facility] Temperature Oral (F) 97.5 F 12/06/2016 [facility] Systolic (mm Hg) 110 12/06/2016 [facility] Diastolic (mm Hg) 77 12/06/2016 [facility] Respitory Rate 16 12/06/2016 [facility] Weight 106.591 12/05/2016 [facility] BMI Calculated 40.34 12/05/2016 [facility] Height 162.56 cm 11/27/2016 [facility] Encounters Location Location Details Encounter Type Encounter Number Reason For Visit Attending Provider ADM Date DC Date Status Source [facility] Outpatient [id number] SCREENING KILEY PRANGLE 10/05/2011 Active [facility] Outpatient [id number] SWELLING, PAIN KILEY PRANGLE 02/04/2013 Active [facility] Outpatient [id number] SCREENING KILEY PRANGLE 03/10/2013 03/10/2013 Active [facility] Outpatient [id number] KILEY PRANGLE 03/28/2015 Active [facility] Outpatient [id number] Dunia Celeste 04/26/2015 04/27/2015 [facility] Outpatient [id number] KILEY PRANGLE 08/31/2015 Active [facility] OP Therapy Patients [id number] Vinny Rose 09/13/2015 10/13/2015 [facility] Outpatient [id number] Larry Francisco 09/27/2015 09/28/2015 [facility] OP Therapy Patients [id number] Vinny Rose 10/13/2015 11/12/2015 [facility] Outpatient [id number] KILEY PRANGLE 04/25/2016 Active [facility] Outpatient [id number] [facility] 11/23/2016 11/24/2016 [facility] Inpatient [id number] [facility] 12/05/2016 12/06/2016 [facility] Emergency [id number] Vinny Iheme 12/13/2016 12/14/2016 [facility] Outpatient [id number] KILEY PRANGLE 12/24/2016 Active [facility] OP Therapy Patients [id number] [facility] 12/26/2016 01/25/2017 [facility] OP Therapy Patients [id number] [facility] 01/25/2017 02/24/2017 [facility] Phone Message [id number] 03/04/2017 03/06/2017 [facility] Phone Message [id number] 03/21/2017 03/23/2017 [facility] Phone Message [id number] 05/29/2017 05/31/2017 [facility] Phone Message [id number] 05/29/2017 05/31/2017 [facility] Phone Message [id number] 05/29/2017 05/31/2017 [facility] Outpatient [id number] KILEY PRANGLE 07/02/2017 Active [facility] Primary Care [facility] Outpatient [id number] Kiley Prangle 07/02/2017 07/03/2017 [facility] Phone Message [id number] 07/05/2017 07/07/2017 [facility] Phone Message [id number] 07/24/2017 07/26/2017 [facility] Phone Message [id number] 07/25/2017 07/27/2017 [facility] Primary [facility] Phone Message [id number] 08/07/2017 08/09/2017 [facility] Departed Emergency Room [id number] YO ALVINADIANELYS HERRERA 09/08/2017 09/08/2017 [facility] Primary Care [facility] Phone Message [id number] 09/13/2017 09/15/2017 [facility] Primary [facility] Phone Message [id number] 10/28/2017 10/30/2017 [facility] Outpatient [id number] Harrisonlevy Florezmarcy 12/26/2017 12/27/2017 [facility] Primary [facility] Phone Message [id number] 01/10/2018 01/12/2018 [facility] Primary [facility] Phone Message [id number] 02/28/2018 03/02/2018 [facility] Outpatient [id number] KILEY PASCAL 03/20/2018 Active [facility] Primary [facility] Ambulatory Pre-Reg [id number] Kiley Amador 03/20/2018 03/20/2018 [facility] Primary [facility] Phone Message [id number] 03/25/2018 03/27/2018 [facility] Outpatient [id number] KILEY PASCAL 05/15/2018 Active [facility] Primary [facility] Outpatient [id number] Kiley Amador 05/15/2018 05/16/2018 [facility] Outpatient [id number] DIMAS LONGOH 05/27/2018 Active [facility] Neurosurgery [facility] Outpatient [id number] Dimas Maximo 05/27/2018 05/28/2018 [facility] Outpatient [id number] Risa Shepherd 05/27/2018 05/28/2018 [facility] Phone Message [id number] 05/29/2018 05/31/2018 [facility] Primary [facility] Phone Message [id number] 05/30/2018 06/01/2018 [facility] Outpatient [id number] Risa Shepherd 06/24/2018 06/25/2018 [facility] Phone Message [id number] 07/01/2018 07/03/2018 [facility] Between Visit [id number] 08/25/2018 08/26/2018 [facility] Between Visit [id number] 09/02/2018 09/03/2018 [facility] Inpatient [id number] Jaclyn Calvillo 09/04/2018 09/07/2018 [facility] Between Visit [id number] 09/29/2018 09/30/2018 [facility] Outpatient [id number] OSTEOPOROSIS DUNIA CELESTE Cancel [facility] Procedures Procedure Code Date Perfomer Comments Source Arthroscopy of knee [id number] 04/15/2002 [facility] Arthroscopy of knee [id number] 04/15/2002 [facility] Arthroscopy of knee [id number] 04/15/2002 [facility] Arthroscopy of knee [id number] 04/15/2002 [facility] Arthroscopy of knee [id number] 04/15/2002 [facility] Knee<sup>1</sup> [id number] RIGHT SIDE [facility] Knee replacement<sup>1</sup> [id number] right [facility] Knee replacement<sup>1</sup> [id number] right [facility] Knee replacement<sup>1</sup> 53560999 right [facility] Mammogram<sup>2</sup> [id number] 2014 [facility]<sup>2</sup> [id number] 2014 [facility] Knee replacement<sup>1</sup> [id number] right [facility] Mammogram<sup>2</sup> [id number] 2014 [facility] Assessment and Plan Assessment and Plan Date Source Extracted from:Title: Clinical Document Author: Isadora Polk MD Date: 09/05/18 Hospitalist Consult Note [facility] ISADORA POLK MD, PhD SUBJECTIVE: Patient seen and examined, events reviewed and noted HISTORY OF PRESENT ILLNESS: 60F with hypertension, morbidobesity, who woke up this morning with chest pain in the substernal area she had some EKG changes but none of them ST elevation her troponin To 3.7 she was seen and evaluated by cardiology at bedside and is planning to go to cardiac catheterization on urgent basis, she denies having any diaphoresis denies having any syncopal episode, she is no prior cardiac history no diabetes chest pain-free after getting nitro and analgesics Has no prior cardiac history or family history to suggest CAD. REVIEW OF SYSTEMS: Constitutional Symptoms: no fever, no weight loss, no weight gain, no fatigue, no malaise Eyes: no diplopia, no blurred vision, no redness, no discharge, no loss of vision Ears, Nose, Mouth, Throat: no dysphagia, no odynophagia, no otalgia, no deafness, no rhinorrhea Cardiovascular: no chest pain, no SOB, no LERMA, no orthopnea, no PND, exercise tolerated, no palpitations Respiratory: same as CVS, no cough, no hemoptysis Gastrointestinal: no NVD, no BPR, no dark stool, no constipation, no abdominal pain Genitourinary: no dysuria, no frequency, no urgency, no nocturia, no incontinence Musculoskeletal: no arthralgia, no myalgia, no stiffness Integumentary: (skin and/or breast): no rash, no hives, no breast pain, no mass, no nipple dc Neurological: no weakness, no headache, no seizure, no dizziness, no tingling, no numbness Psychiatric: no anxiety, no depression, no insomnia Endocrine: no polyuria, no polydipsia, no fatigue, no weight loss, no weight gain, no cold or heat intolerance, no palpitations Hematologic/Lymphatic: no bleeding, no bruising, no edema, no lumps (axilla groin neck) Allergic/Immunologic: no rash, no allergies, no fever, no chills PAST MEDICAL HISTORY: 1. HTN 2. Morbid obesity 3. Menopause MEDICATIONS: Please see nursing medical reconciliation form. ALLERGIES: No known drug allergies. FAMILY HISTORY: Has been reviewed and is noncontributory to this current admission. SOCIAL HISTORY: Denies any tobacco, alcohol or any illicit drug abuse. OBJECTIVE: Vitals and Temp: Vitals Tmp(F) Pulse BP RR SpO2 FIO2 09/05 20:00 97.7 60 130/83 16 96 --- 09/05 15:48 97.7 66 123/79 16 96 --- 09/05 13:00 ---- 67 125/75 17 98 --- 09/05 12:00 98 62 ----- 25 98 --- 09/05 11:00 ---- 56 134/74 16 100 --- 24 Hr Tmax: 98F (36.67c) at 09/05 12:00 Vital Signs are the last 5 in the past 48 hours. Labs (Last four charted values) WBC H 11.7 (SEPTEMBER 04) 8.0 (SEPTEMBER 04) Hgb 13.5 (SEPTEMBER 04) 14.1 (SEPTEMBER 04) 14.1 (SEPTEMBER 04) Hct 40.7 (SEPTEMBER 04) 42.0 (SEPTEMBER 04) Plt 209 (SEPTEMBER 04) 216 (SEPTEMBER 04) Na 142 (SEPTEMBER 04) K L 3.2 (SEPTEMBER 04) L 3.4 (SEPTEMBER 04) CO2 L 23 (SEPTEMBER 04) Cl 108 (SEPTEMBER 04) Cr 0.78 (SEPTEMBER 04) 0.92 (SEPTEMBER 04) BUN 18 (SEPTEMBER 04) Glucose Random H 109 (SEPTEMBER 04) Mg 2.1 (SEPTEMBER 04) 2.1 (SEPTEMBER 04) Phos 3.4 (SEPTEMBER 04) Ca 8.6 (SEPTEMBER 04) PT L 11.8 (SEPTEMBER 04) INR 0.88 (SEPTEMBER 04) PTT 28.9 (SEPTEMBER 04) Troponin C 36.00 (SEPTEMBER 04) C 38.00 (SEPTEMBER 04) C 3.70 (SEPTEMBER 04) 0.14 (SEPTEMBER 04) Total CK 157 (SEPTEMBER 04) MEDICATIONS Scheduled Meds (12):aspirin, cloNIDine (cloNIDine 0.1 mg oral tablet), clopidogrel (Plavix), enoxaparin (Lovenox), ferrous sulfate, gabapentin (gabapentin 300 mg oral capsule), lisinopril, metoprolol (metoprolol tartrate), potassium chloride (potassium chloride 20 mEq oral tablet, extended release), rOPINIRole (Requip), simvastatin, verapamil Unscheduled Meds: None PRN Meds (4):Dextrose 50% in Water IV (Dextrose 50% Syringe), Dextrose 50% in Water IV (Dextrose 50% Syringe), acetaminophen, glucagon One Time Meds (4):(Completed) AMIODarone + Dextrose 5% in Water IV 100 mL (AMIODarone + Dextrose 5% in Water 100 mL), (Completed) potassium chloride, (Completed) potassium chloride, (Completed) potassium chloride (potassium chloride 20 mEq oral tablet, extended release) Continuous Infusions: None ASSESSMENT and EXAM: GENERAL: In no apparent distress at this time. HEENT: Normocephalic, atraumatic. Pupils equal and reactive to light. NECK: Supple. No jugular venous distention or bruits. CARDIOVASCULAR: Regular rate and rhythm, S1, S2 positive, no murmurs, rubs or gallops. LUNGS: Clear to auscultation bilateral. No rales, rhonchi or wheezes. GASTROINTESTINAL: Soft, nontender, nondistended, positive bowel sounds, no organomegaly. EXTREMITIES: No clubbing, cyanosis or edema. NEUROLOGICAL: Intact. No gross deficits noted. SKIN: no rashes noted. DIAGNOSES and PROBLEMS: 1. NSTEMI 2. Nonischermic cardiomyopathy 3. HTN 4. 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 Transfer patient to [facility] floor Extracted from:Title: Clinical Document Author: Db Lee MD Date: 09/04/18 PULMONARY AND CRITICAL CARE CONSULT NOTE Reason for consult: Non-STEMI History of presenting illness: Patient is a 60-year-old female who has long-standing history of hypertension, who woke up this morning with chest pain which she describes as substernal she had some EKG changes but none of them ST elevation her troponin To 3.7 she was seen and evaluated by cardiology at bedside and is planning to go to cardiac catheterization on urgent basis, she denies having any diaphoresis denies having any syncopal episode, she is no prior cardiac history no diabetes chest pain- free after getting nitro and analgesics Has no prior cardiac history or family history to suggest CAD. PAST MEDICAL HISTORY Menopause FAMILY HISTORY Grandparent: Heart failure SURGICAL HISTORY Arthroscopy of knee: 2003 Knee replacement Mammogram SOCIAL HISTORY Alcohol Details: Never, Previous treatment: None. Exercise Details: Exercise duration: 0.; Comment(s): no exercise due to pain, denies SOB with exertion Tobacco Details: Use: Never smoker. Tobacco smoke exposure: None. Did the Patient Smoke Cigarettes Anytime During the Last 365 Days? No. Cessation Counseling Provided? No. Details: Use: Never smoker. Tobacco smoke exposure: None. Did the Patient Smoke Cigarettes Anytime During the Last 365 Days? No. Cessation Counseling Provided? No. Substance Abuse Details: Use: None. Lines, Tubes, and Drains: 09/04/2018 08:28 Peripheral Lines: Hand Right 22 gauge Over the needle catheter 09/04/2018 06:09 Peripheral Lines: Hand Left 20 gauge Over the needle catheter ALLERGIES Allergies (1) Active Reaction Macrobid Nausea/vomiting Review of Systems CONSTITUTIONAL: no fever. chills. dizziness. weakness. EYES: No pain, erythema, or discharge, blurring of vision. EAR, NOSE AND THROAT: No sore throat, URI symptoms, epistaxis,tinnitus. CARDIOVASCULAR: No chest pain. No palpitations. + lower extremity edema. RESPIRATORY: No shortness of breath, cough, pain with respiration, or pleuritic chest pain. No hemoptysis. No dyspnea. No paroxysmal nocturnal dyspnea. GASTROINTESTINAL: Normal appetite. No dysphagia, nausea, vomiting, diarrhea. No pain. No bleeding. GENITOURINARY: No frequency, urgency, nocturia, hematuria or dysuria. MUSCULOSKELETAL: No arthralgias or myalgias. INTEGUMENTARY: No swelling, bruising, contusions,abrasions, lymphangitis. NEUROLOGIC: No headache, neck pain, numbness or tingling of the extremities. or weakness. METABOLIC:No history of thyroid, diabetes or adrenal problems. HEMATOLOGICAL: No bleeding, petechiae,bruising. ALLERGY: No asthma, urticaria. PSYCHIATRIC: No confusion or depression GENERAL EXAMINATION Vitals and Temp: Vitals Tmp(F) Pulse BP RR SpO2 FIO2 09/04 09:14 ---- 65 134/67 16 98 --- 09/04 08:25 ---- 57 115/63 20 99 2.0L/m 09/04 07:26 ---- 61 146/83 21 96 2.0L/m 09/04 06:09 98 68 137/93 18 99 --- 09/04 05:53 98.0 83 119/90 18 99 --- 24 Hr Tmax: 98F (36.67c) at 09/04 06:09 Vital Signs are the last 5 in the past 48 hours. General: Lying in bed awake interactive not in any distress eyes: Sclera anicteric, conjunctiva pink ENT: Tongue moist neck: Supple, no use of accessory muscles, no JVD Heart: Regular rate and rhythm, S1 and S2 heard, no murmurs Lungs: Clear to auscultation bilaterally, no evidence of accessory muscle use Abdomen: Soft, obese, Non tender. BS + : deferred Extremities: no evidence of edema in legs, hands and feet are cool Skin: No rashes,or bruising Neurologic: AO X 3, no focal deficit. Psych : normal mood and affect MEDICATION Medications (3) Active Scheduled: (0) Continuous: (1) heparin 25,000 unit/500 mL D5W PREMIX 25,000 unit [12 unit/kg/hr] + Premix Diluent Dextrose 5% 500 500 mL, IV, 17.91 ml/hr PRN: (2) heparin 1000 unit/1ml 10 ml INJ VL 4,500 unit 4.5 mL, IVP, PRN heparin 1000 unit/1ml 10 ml INJ VL 2,200 unit 2.2 mL, IVP, PRN Home Medications (12) Active aspirin 81 mg tablet, enteric coated 81 mg=1 tab, PO, Daily cloNIDine 0.1 mg oral tablet 1 tab, PO, BID gabapentin 300 mg oral capsule 300 mg=1 cap, PO, BID indapamide 2.5 mg oral tablet 1 tab, PO, Daily iron sulfate (ferrous sulfate) 325 mg oral tablet 325 mg=1 tab, PO, Daily metroNIDAZOLE topical 0.75% gel See Instructions potassium chloride 8 mEq oral capsule, extended release 1 cap, PO, BID rOPINIRole 1 mg oral tablet 1 mg=1 tab, PO, BID simvastatin 40 mg oral tablet 1 tab, PO, Daily Tylenol 8 HR Arthritis Pain 650 mg oral tablet, extended release 1,300 mg=2 tab, PO, PRN verapamil 180 mg oral tablet, extended release 1 tab, PO, QAM Vitamin B12 LABS Labs (Last four charted values) WBC 8.0 (SEPTEMBER 04) Hgb 14.1 (SEPTEMBER 04) Hct 42.0 (SEPTEMBER 04) Plt 216 (SEPTEMBER 04) Na 142 (SEPTEMBER 04) K L 3.4 (SEPTEMBER 04) CO2 L 23 (SEPTEMBER 04) Cl 108 (SEPTEMBER 04) Cr 0.92 (SEPTEMBER 04) BUN 18 (SEPTEMBER 04) Glucose Random H 109 (SEPTEMBER 04) Mg 2.1 (SEPTEMBER 04) Phos 3.4 (SEPTEMBER 04) Ca 8.6 (SEPTEMBER 04) PT L 11.8 (SEPTEMBER 04) INR 0.88 (SEPTEMBER 04) PTT 28.9 (SEPTEMBER 04) Troponin C 3.70 (SEPTEMBER 04) 0.14 (SEPTEMBER 04) Total CK 157 (SEPTEMBER 04) Radiology IMPRESSION: Non-STEMI Chest pain Morbid obesity Long-standing hypertension Hypokalemia PLAN : Patient is going to go to cardiac catheterization I's and spoke with cardiology at bedside reviewed her EKG, based on the findings we will decide whether we need to continue heparin drip or not, she is at this point chest pain-free, however will have her on analgesics I will go ahead and replace her potassium and start on endocrine replacement protocol she will be admitted to IMU. None Specified=FULL CODE Db Lee MD MPH Pulmonary and Critical Care Medicine 09/07/2018 [place] Extracted from:Title: New Discharge Summary * Author: Evelio Allison MD Date: 12/06/16 Discharge Information Discharge Summary Information: Admitting diagnosis, Discharge diagnosis, Discharge medications. Unspecified osteoarthritis, unspecified site (M19.90) Essential (primary) hypertension (I10) Hyperlipidemia, unspecified (E78.5) Restless legs syndrome (G25.81) Hypokalemia (E87.6) Hypothyroidism, unspecified (E03.9) Unilateral primary osteoarthritis, right knee (M17.11) Surgical Procedures: 12/05/16 09:03 RIGHT TOTAL KNEE ARTHROPLASTY [id number] Primary Surgeon: Evelio Allison MD (Service: ORT) Discharge Plan Discharge Summary Plan Discharge Status: improved. Discharge instructions given: to patient, to caregiver. Discharge disposition: discharge to home. Prescriptions: called to pharmacy, written and given to patient, ASA 325 mg BID for DVT prophylaxis unless otherwise directed. Home excercise program sheet was reviewed with patient and they will perform at home as directed; elevate above heart and use ice as directed.. For THR patients instructions on hip precautions were provided to the patient. Home PT and/or outpatient PT was ordered. Education and Follow-up Counseled: patient, family. Discharge Planning: The patient will call if they have any concerns or questions, prior to their followup appointment in the office. Extracted from:Title: Consult Note Author: Kev Mcmullen MD Date: 12/05/16 Assessment/Plan 66-year-old female with past medical history of osteoarthritis hyperlipidemia hypertension other issues listed who presents with continued knee pain 1.Osteoarthritis Right total knee arthroplasty Physical therapy multimodal pain managementas per primary Happy to assist as needed 2.HTN (hypertension) Continue clonidine and hold verapamil 3.Dyslipidemia Continue home statin 4.Restless leg syndrome Continue ropinirole 5.Hypokalemia Recheck in BMP 6.Hypothyroid Continue home Synthroid Chronic medical issues and home medications have been reviewed Hospitalist is consult and please call [phone] with questions or issues 12/06/2016 [facility] Plan of Care Plan of Care Date Source Discharge Date 09/08/17 2:01pm Disposition HOME, SELF-CARE Condition at Discharge Stable Instructions/Education Provided Hematuria - Female Urinary Tract Infection - Women Forms Provided Work/School Excuse Prescriptions See Medication Section Referrals KILEY PASCAL DO (NONSTAFF) Order Date: Call for an appointment Address: [address] [place] [address] RADHA LANDEROS MD Order Date: As needed Address: [address] [place] [id number] Additional Instructions/Education TAKE ALL PRESCRIPTIONS DIRECTED BY PHYSICAN. FINISH ALL MEDICATIONS ON PRESCRIPTIONS REST INCREASE FLUID INTAKE DRINK CRANBERRY JUICE FOLLOW UP NEEDED WITH PRIMARY DOCTOR AND UROLOGIST. 09/08/2017 [facility] Social History Social History Date Source No social history information available. 09/08/2017 [facility] Social History TypeResponse Substance Abuse Use: None. Exercise Exercise duration: 0.1 Alcohol Never, Previous treatment: None. Smoking Status Never smoker; Exposure to Tobacco Smoke None; Cigarette Smoking Last 365 Days No; Reg Smoking Cessation Counseling No 1no exercise due to pain, denies SOB with exertion 11/27/2016 [facility] Social History TypeResponse Substance Abuse Use: None. Exercise Exercise duration: 0.1 Alcohol Never Smoking Status Never smoker; Type: non e; Previous treatment: None; Ready to change: No; Concerns about tobacco use in household: No; Exposure to Tobacco Smoke None; Cigarette Smoking Last 365 Days No; Reg Smoking Cessation Counseling No; Tobacco use per day: 0; Number of years: 0; Total pack years: 0; Started at age: 0.0; Stopped at age: 0; Other Tobacco Frequency na; 2 entered on: 09/04/18 1no exercise due to pain, denies SOB with [id number] 11/27/2016 [facility] Social History TypeResponse Substance Abuse Use: None. Exercise Exercise duration: 0.1 Alcohol Never Smoking Status Never smoker; Type: non e; Previous treatment: None; Ready to change: No; Concerns about tobacco use in household: No; Exposure to Tobacco Smoke None; Cigarette Smoking Last 365 Days No; Reg Smoking Cessation Counseling No; Tobacco use per day: 0; Number of years: 0; Total pack years: 0; Started at age: 0.0; Stopped at age: 0; Other Tobacco Frequency na; 2 entered on: 09/04/18 1no exercise due to pain, denies SOB with [id number] 11/27/2016 [facility] Social History TypeResponse Substance Abuse Use: None. Exercise Exercise duration: 0.1 Alcohol Never, Previous treatment: None. Smoking Status Never smoker; Exposure to Tobacco Smoke None; Cigarette Smoking Last 365 Days No; Reg Smoking Cessation Counseling No 1no exercise due to pain, denies SOB with exertion 11/27/2016 [facility] Social History TypeResponse Substance Abuse Use: None. Exercise Exercise duration: 0.1 Alcohol Never, Previous treatment: None. Smoking Status Never smoker; Exposure to Tobacco Smoke None; Cigarette Smoking Last 365 Days No; Reg Smoking Cessation Counseling No entered on: 05/27/18 1no exercise due to pain, denies SOB with exertion 11/27/2016 [facility] Family History No Data Provided for This Section Advance Directives Order Name Results Value Date Source Advance Directives Advance Directives No advance directive information available. 09/08/2017 [facility] Functional Status No Data Provided for This Section
--- OUTSIDE RECORDS SUMMARY | 2018-11-08 11:40 | XMS REPORT | Summary of Care ---
Author Author [facility] Organization [facility] Address Unknown Phone Unavailable Encounter HQ Encntr_alias(FIN) [id number] Date(s): 04/26/15 - 04/26/15 [facility] [address] [place] [address]- Discharge Disposition: Home Attending Physician: Dunia Cronin MD Referring Physician: Dunia Cronin MD Vital Signs No data available for this section Problem List No data available for this section Allergies, Adverse Reactions, Alerts Substance Reaction Severity Status Pyridium Active Medications No data available for this section Results No data available for this section Immunizations No data available for this section Procedures No data available for this section Social History No data available for this section Assessment and Plan No data available for this section
--- OUTSIDE RECORDS SUMMARY | 2018-11-08 11:40 | XMS REPORT | Summary of Care ---
[facility] Address Unknown Phone Unavailable Encounter HQ Encntr_aliradha(FABIANA) [id number] Date(s): 10/13/15 - 11/11/15 [facility] Discharge Disposition: Home or Self Care Attending Physician: Vinny Rose MD Vital Signs No data available for [...]
--- OUTSIDE RECORDS SUMMARY | 2018-11-08 11:40 | XMS REPORT | Summary of Care ---
Author [facility] Address Unknown Phone Unavailable Care Team Providers Care Instructional Media Services Technician Name Role Phone Azar English PCP Encounter HQ Ethel([facility]) [id number] Date(s): 02/28/18 - 03/01/[address] [place] [address] [phone] Vital Signs No data available for this section Problem List Condition Effective Dates Status Health Status Informant Dyslipidemia(Confirm Active ed) HTN Active (hypertension)(Confi rmed) Menopause(Confirmed) Resolved Mitral valve Active prolapse(Confirmed) Morbid Active obesity(Confirmed) Osteoarthritis(Confi Active rmed) Restless leg Active syndrome(Confirmed) Allergies, Adverse Reactions, Alerts Substance Reaction Severity Status Macrobid Nausea/vomiting Active Medications indapamide 2.5 mg oral tablet See Instructions, # 90 tab, TAKE ONE TABLET BY MOUTH DAILY, Pharmacy: [facility] [id number] Start Date: 03/03/18 Stop Date: 05/30/18 Status: Completed Results No data available for this section Immunizations Not Given Vaccine Date Status Refusal Reason pneumococcal 13-valent vaccine 12/05/16 Not Given Patient Refuses Procedures Procedure Date Related Diagnosis Body Site Status Arthroscopy of knee 2002 Completed Knee replacement1 Completed Mammogram2 Completed 1right 76038 Social History Social History Type Response Substance Abuse Use: None. Exercise Exercise duration: [...] due to pain, denies SOB with exertion 2na Assessment and Plan No data available for this section
--- OUTSIDE RECORDS SUMMARY | 2018-11-08 11:40 | XMS REPORT | Summary of Care ---
Author Author [facility] Organization [facility] Address Unknown Phone Unavailable Encounter TOD Davenport(FABIANA) [id number] Date(s): 12/13/16 - 12/13/16 [facility] [address] [place] [address]- Discharge Diagnosis: Acute postoperative pain of right knee Discharge Diagnosis: Acute post-operative pain Discharge Diagnosis: Elevated blood pressure Discharge Disposition: Home or Self Care Attending Physician: Vinny Noriega MD Vital Signs 1 2 3 Most recent to oldest [Reference Range]: 162.56 cm (12/13/16 12:27 PM) Height 97.5 DegF (12/13/16 7:20 PM) 97.5 DegF (12/13/16 5:22 PM) 98.4 DegF (12/13/16 12:27 PM) Temperature Oral [96.4-99.1 DegF] 142/81 mmHg *HI* (12/13/16 7:20 PM) 147/85 mmHg *HI* (12/13/16 5:22 PM) 164/100 mmHg *HI* (12/13/16 12:27 PM) Blood Pressure [90-140/60-90 mmHg] 18 BRMIN (12/13/16 7:20 PM) 18 BRMIN (12/13/16 5:22 PM) 18 BRMIN (12/13/16 12:27 PM) Respiratory Rate [14-20 BRMIN] 70 bpm (12/13/16 7:20 PM) 69 bpm (12/13/16 5:22 PM) 75 bpm (12/13/16 12:27 PM) Peripheral Pulse Rate [60-100 bpm] 104.545 kg (12/13/16 12:27 PM) Weight 39.56 m2 (12/13/16 12:27 PM) Body Mass Index Problem List Condition Effective Dates Status Health Status Informant Dyslipidemia(Confirm Active ed) HTN Active (hypertension)(Confi rmed) Menopause(Confirmed) Resolved Mitral valve Active prolapse(Confirmed) Osteoarthritis(Confi Active rmed) Restless leg Active syndrome(Confirmed) Allergies, Adverse Reactions, Alerts Substance Reaction Severity Status Macrobid Nausea/vomiting Active Medications Flexeril 10 mg oral tablet 10 mg, PO, TID, PRN Muscle Spasm, X 10 day, # 30 tab, 0 Refill(s) Start Date: 12/13/16 Stop Date: 12/23/16 Status: Ordered Trevorton 10/325 oral tablet 1 tab, Route: PO, Drug Form: TAB, Dosing Weight 104.545, kg, ONCE, STAT, Start d ate: 12/13/16 18:28:00 CDT, Stop date: 12/13/16 18:28:00 CDT Notes: Do not exceed 4gm/day of acetaminophen. (Same as: Trevorton 325/10) Start Date: 12/13/16 Stop Date: 12/13/16 Status: Completed potassium chloride 20 mEq oral tablet, extended release 40 mEq, 2 tab, Route: PO, Drug form: ERTAB, ONCE, Dosing Weight 104.545, kg, Rossana ority: STAT, Start date: 12/13/16 18:28:00 CDT, Stop date: 12/13/16 18:28:00 CDT Notes: (Same as: K-Dur 20)"Do Not Crush" With food and full glass of water Start Date: 12/13/16 Stop Date: 12/13/16 Status: Completed Tylenol with Codeine #3 oral tablet 1 - 2 tab, PO, Q4H, PRN Pain, X 4 day, # 50 tab, 0 Refill(s) Start Date: 12/13/16 Stop Date: 12/17/16 Status: Ordered Zofran ODT 8 mg, 2 tab, Route: PO, Drug form: TABDIS, ONCE, Dosing Weight 104.545, kg, Prio rity: STAT, Start date: 12/13/16 18:28:00 CDT, Stop date: 12/13/16 18:28:00 CDT Notes: (Same as: Zofran ODT) Start Date: 12/13/16 Stop Date: 12/13/16 Status: Completed Results ELECTROLYTES Most recent to 1 oldest [Reference Range]: Sodium Lvl [135-145 138 mEq/L mEq/L] (12/13/16 2:46 PM) Potassium Lvl 2.9 mEq/L 1 [3.5-5.1 mEq/L] *CRIT* (12/13/16 2:46 PM) Chloride Lvl [95-109 100 mEq/L mEq/L] (12/13/16 2:46 PM) CO2 [24-32 mEq/L] 31 mEq/L (12/13/16 2:46 PM) AGAP [10.0-20.0 9.9 mEq/L mEq/L] *LOW* (12/13/16 2:46 PM) 1Result Comment: Critical Result(s) called to Elizabeth Harkins at 12/13/2016 15:41 by wx. Read back OK. CHEM PANEL Most recent to 1 oldest [Reference Range]: Creatinine Lvl 0.83 mg/dL [0.50-1.40 mg/dL] (12/13/16 2:46 PM) eGFR 74 mL/min/1.73m2 1 *NA* (12/13/16 2:46 PM) BUN [7-22 mg/dL] 12 mg/dL (12/13/16 2:46 PM) B/C Ratio [6-25] 14 (12/13/16 2:46 PM) Glucose Lvl [70-99 100 mg/dL mg/dL] *HI* (12/13/16 2:46 PM) Total Protein 7.6 g/dL [6.4-8.4 g/dL] (12/13/16 2:46 PM) Albumin Lvl [3.5-5.0 3.4 g/dL g/dL] *LOW* (12/13/16 2:46 PM) Globulin [2.7-4.2 4.2 g/dL g/dL] (12/13/16 2:46 PM) A/G Ratio [0.7-1.6] 0.8 (12/13/16 2:46 PM) Calcium Lvl 9.1 mg/dL [8.5-10.5 mg/dL] (12/13/16 2:46 PM) ALT [0-65 unit/L] 19 unit/L (12/13/16 2:46 PM) AST [0-37 unit/L] 24 unit/L (12/13/16 2:46 PM) Alk Phos [39-136 73 unit/L unit/L] (12/13/16 2:46 PM) Bili Total [0.2-1.3 0.8 mg/dL mg/dL] (12/13/16 2:46 PM) 1Result Comment: The eGFR is calculated using the [...] from the National Kidney Disease Education Program ( NKDEP) which additionally recommends that when the eGFR is used in patients with extremes of body mass index for purposes of drug dosing, the eGFR should be mul tiplied by the estimated BMI. IMMUNOLOGY Most recent to 1 oldest [Reference Range]: CRP [<=2.9 mg/L] 39.4 mg/L *HI* (12/13/16 2:46 PM) HEMATOLOGY Most recent to 1 oldest [Reference Range]: WBC [3.7-10.4 K/CMM] 11.4 K/CMM *HI* (12/13/16 2:46 PM) RBC [4.20-5.40 4.83 M/CMM M/CMM] (12/13/16 2:46 PM) Hgb [12.0-16.0 g/dL] 14.1 g/dL (12/13/16 2:46 PM) Hct [36.0-48.0 %] 42.0 % (12/13/16 2:46 PM) MCV [80.0-98.0 fL] 86.9 fL (12/13/16 2:46 PM) MCH [27.0-31.0 pg] 29.3 pg (12/13/16 2:46 PM) MCHC [32.0-36.0 33.7 g/dL g/dL] (12/13/16 2:46 PM) RDW [11.5-14.5 %] 13.6 % (12/13/16 2:46 PM) Platelet [133-450 294 K/CMM K/CMM] (12/13/16 2:46 PM) MPV [7.4-10.4 fL] 9.1 fL (12/13/16 2:46 PM) Segs [45.0-75.0 %] 74.5 % (12/13/16 2:46 PM) Lymphocytes 16.2 % [20.0-40.0 %] *LOW* (12/13/16 2:46 PM) Monocytes [2.0-12.0 6.8 % %] (12/13/16 2:46 PM) Eosinophils [0.0-4.0 1.6 % %] (12/13/16 2:46 PM) Basophils [0.0-1.0 0.9 % %] (12/13/16 2:46 PM) Segs-Bands # 8.5 K/CMM [1.5-8.1 K/CMM] *HI* (12/13/16 2:46 PM) Lymphocytes # 1.9 K/CMM [1.0-5.5 K/CMM] (12/13/16 2:46 PM) Monocytes # [0.0-0.8 0.8 K/CMM K/CMM] (12/13/16 2:46 PM) Eosinophils # 0.2 K/CMM [0.0-0.5 K/CMM] (12/13/16 2:46 PM) Basophils # [0.0-0.2 0.1 K/CMM K/CMM] (12/13/16 2:46 PM) Sed Rate [0-20 36 mm/hr mm/hr] *HI* (12/13/16 2:46 PM) Immunizations Not Given Vaccine Date Status Refusal Reason pneumococcal 13-valent vaccine 12/05/16 Not Given Patient Refuses Procedures Procedure Date Related Diagnosis Body Site Arthroscopy of knee 2002 Social History Social History Type Response Substance Abuse Use: None. Exercise Exercise duration: 0.1 Alcohol Never, Previous treatment: None. Smoking Status Never smoker; Exposure to Tobacco Smoke None; Cigarette Smoking Last 365 Days No; Reg Smoking Cessation Counseling No 1no exercise due to pain, denies SOB with exertion Assessment and Plan No data available for this section
--- OUTSIDE RECORDS SUMMARY | 2018-11-08 11:40 | XMS REPORT | Summary of Care ---
Author Author [facility] Organization [facility] Address Unknown Phone Unavailable Encounter HQ Janny_chitra(FIN) [id number] Date(s): 12/26/17 - 12/26/17 [facility] [address] [place] [address]- Encounter Diagnosis Low back pain (Final) - 12/31/17 Spondylosis without myelopathy or radiculopathy, lumbar region (Final) - Osteophyte, vertebrae (Final) - Spinal stenosis, lumbar region without neurogenic claudication (Final) - Discharge Disposition: Home or Self Care Attending Physician: Larry Francisco MD Referring Physician: Larry Francisco MD Vital Signs No data available for this section Problem List Condition Effective Dates Status Health Status Informant Dyslipidemia(Confirm Active ed) HTN Active (hypertension)(Confi rmed) Menopause(Confirmed) Resolved Mitral valve Active prolapse(Confirmed) Morbid Active obesity(Confirmed) Osteoarthritis(Confi Active rmed) Restless leg Active syndrome(Confirmed) Allergies, Adverse Reactions, Alerts Substance Reaction Severity Status Macrobid Nausea/vomiting Active Medications No data available for this section Results No data available for this section Immunizations Not Given Vaccine Date Status Refusal Reason pneumococcal 13-valent vaccine 12/05/16 Not Given Patient Refuses Procedures Procedure Date Related Diagnosis Body Site Status Arthroscopy of knee 2002 Completed Knee replacement1 Completed Mammogram2 Completed 1right 61854 Social History Social History Type Response Substance [...]
--- OUTSIDE RECORDS SUMMARY | 2018-11-08 11:40 | XMS REPORT | Summary of Care ---
Author Author [facility] Address Unknown Phone Unavailable Encounter TOD Davenport(FABIANA) [id number] Date(s): 12/26/16 - 01/24/17 [facility] Discharge Disposition: Home or Self Care Attending Physician: Evelio Allison MD Vital Signs No data available for [...] Related Diagnosis Body Site Arthroscopy of knee 2003 Knee replacement1 1right Social History Social History Type Response Substance [...]
--- OUTSIDE RECORDS SUMMARY | 2018-11-08 11:40 | XMS REPORT | Summary of Care ---
Author Author [facility] Address Unknown Phone Unavailable Encounter HQ Sandintr_aliradha(FIN) [id number] Date(s): 03/04/17 - 03/05/17 [facility] [address] [place] [address]- [phone] Vital Signs No data available for this section Problem List Condition Effective Dates Status Health Status Informant Dyslipidemia(Confirm Active ed) HTN Active (hypertension)(Confi rmed) Menopause(Confirmed) Resolved Mitral valve Active prolapse(Confirmed) Morbid Active obesity(Confirmed) Osteoarthritis(Confi Active rmed) Restless leg Active syndrome(Confirmed) Allergies, Adverse Reactions, Alerts Substance Reaction Severity Status Macrobid Nausea/vomiting Active Medications verapamil 180 mg oral tablet, extended release See Instructions, # 90 unknown unit, TAKE ONE TABLET BY MOUTH EVERY MORNING, Pha rmacy: [facility] [place] [id number] Start Date: 03/04/17 Status: Ordered verapamil 180 mg oral tablet, extended release See Instructions, # 90 unknown unit, TAKE ONE TABLET BY MOUTH EVERY MORNING, Pha rmacy: [facility] [place] [id number] Start Date: 03/04/17 Status: Ordered Results No data available for this section [...]
--- OUTSIDE RECORDS SUMMARY | 2018-11-08 11:40 | XMS REPORT | CCD ---
Author Author [facility] Organization [facility] Address Unknown Phone Unavailable Care Team Providers Care Pharmaceutical Specialty Representative Name Role Phone Azar English CP Allergies, Adverse Reactions, Alerts Substance Reaction Status Pyridium Active
--- OUTSIDE RECORDS SUMMARY | 2018-11-08 11:40 | XMS REPORT | Summary of Care ---
Author Author [facility] Address Unknown Phone Unavailable Encounter TOD Davenport(FABIANA) [id number] Date(s): 01/25/17 - 02/23/17 [facility] Discharge Disposition: Home or Self Care [...]
--- OUTSIDE RECORDS SUMMARY | 2018-11-08 11:40 | XMS REPORT | Summary of Care ---
Author Author [facility] Organization [facility] Address Unknown Phone Unavailable Care Team Providers Care Naturopath Name Role Phone Azar English PCP Encounter HQ Janny_chitra(FABIANA) [phone] Date(s): 09/04/18 - 09/06/18 [facility] [address] [place] [address]- Discharge Disposition: Home or Self Care Attending Physician: Jaclyn Calvillo MD Admitting Physician: Jaclyn Calvillo MD Vital Signs 1 2 3 Most recent to oldest [Reference Range]: 162.56 cm (09/04/18 3:15 PM) 162.56 cm (09/04/18 5:53 AM) Height 97.4 DegF (09/06/18 4:30 PM) 98.0 DegF (09/06/18 11:25 AM) 98.2 DegF (09/06/18 8:10 AM) Temperature Oral [96.4-99.1 DegF] 118/72 mmHg (09/06/18 4:30 PM) 120/70 mmHg (09/06/18 11:25 AM) 130/70 mmHg (09/06/18 8:10 AM) Blood Pressure [90-140/60-90 mmHg] 18 BRMIN (09/06/18 4:30 PM) 18 BRMIN (09/06/18 11:25 AM) 18 BRMIN (09/06/18 8:10 AM) Respiratory Rate [14-20 BRMIN] 48 bpm *LOW* (09/06/18 4:30 PM) 54 bpm *LOW* (09/06/18 11:25 AM) 58 bpm *LOW* (09/06/18 8:10 AM) Peripheral Pulse Rate [60-100 bpm] 107.318 kg (09/04/18 3:15 PM) 104.545 kg (09/04/18 5:53 AM) Weight 40.61 m2 (09/04/18 3:15 PM) 39.56 m2 (09/04/18 5:53 AM) Body Mass Index Problem List Condition Effective Dates Status Health Status Informant Dyslipidemia(Confirm Active ed) HTN Active (hypertension)(Confi rmed) Menopause(Confirmed) Resolved Mitral valve Active prolapse(Confirmed) Morbid Active obesity(Confirmed) Osteoarthritis(Confi Active rmed) Restless leg Active syndrome(Confirmed) Allergies, Adverse Reactions, Alerts Substance Reaction Severity Status Macrobid Nausea/vomiting Active Medications acetaminophen 650 mg, 2 tab, Route: PO, Drug form: TAB, Q4H, Dosing Weight 104.545, kg, PRN Pa in Score 7-10, Start date: 09/04/18 12:12:00 CDT, Duration: 30 day, Stop date: 0 10/04/18 12:11:00 CDT Notes: Do not exceed 4 gm/day. (Same as: Tylenol) Start Date: 09/04/18 Stop Date: 09/06/18 Status: Discontinued Aldactone 25 mg, 1 tab, Route: PO, Drug form: TAB, Daily, Dosing Weight 107.318, kg, Start date: 09/06/18 9:00:00 CDT, Duration: 30 day, Stop date: 10/05/18 9:00:00 CDT Notes: (Same As: Aldactone) Start Date: 09/06/18 Stop Date: 09/06/18 Status: Discontinued AMIODarone + Dextrose 5% in Water 100 mL 150 mg, 3 mL, Route: IVPB, ONCE, Dosing Weight 107.318, kg, Start date: 09/04/18 19:00:00 CDT, Stop date: 09/04/18 19:00:00 CDT Notes: Central administration only for concentrations > 2 mg/ml."Recommendation: Use an in-line filter during administration for continuous infusions to reduce the incidence of phlebitis"(Same as Codarone) MEDICATION WASTE Product Size: 150 mgProduct Wasted: ___ mg Start Date: 09/04/18 Stop Date: 09/04/18 Status: Completed AMIODarone 900 mg in D5W 500 ml IV 900 mg + Dextrose 5% in Water IV 482 mL 900 mg, 18 mL, Rate: 1 mg/min for 6 hours, then reduce to 0.5 mg/min, Dosing Abraham ght 107.318, kg, Route: IV, Total Volume: 500, Start Date: 09/04/18 18:37:00 CDT , Duration: 30 day, Stop date: 10/04/18 18:36:00 CDT, Replace Every: 24 hr Notes: Central administration only for concentration > 2 mg/ml. Use Glass Bottle or Non PVC Bag"Use 0.22 micron in-line filter" MEDICATION WASTE Product Size: 900 mgProduct Wasted: ___ mg Start Date: 09/04/18 Stop Date: 09/05/18 Status: Discontinued aspirin 325 mg, 1 tab, Route: PO, Drug form: TAB, Daily, Dosing Weight 104.545, kg, Star t date: 09/05/18 9:00:00 CDT, Duration: 30 day, Stop date: 10/04/18 9:00:00 CDT Notes: Take with food. Start Date: 09/05/18 Stop Date: 09/06/18 Status: Discontinued aspirin 325 mg, Route: PO, Drug form: TAB, ONCE, Dosing Weight 104.545, kg, Priority: ST AT, Start date: 09/04/18 7:15:00 CDT, Stop date: 09/04/18 7:15:00 CDT Start Date: 09/04/18 Stop Date: 09/04/18 Status: Completed aspirin 81 mg tablet, enteric coated 81 mg, 1 tab, Route: PO, Drug form: ECTAB, Daily, Dosing Weight 107.318, kg, Sta rt date: 09/05/18 9:00:00 CDT, Duration: 30 day, Stop date: 10/04/18 9:00:00 CDT Start Date: 09/05/18 Stop Date: 09/04/18 Status: Deleted cloNIDine 0.1 mg oral tablet 0.1 mg, 1 tab, Route: PO, Drug form: TAB, BID, Dosing Weight 107.318, kg, Start date: 09/04/18 17:00:00 CDT, Duration: 30 day, Stop date: 10/04/18 9:00:00 CDT Notes: (Same As: Catapres) Start Date: 09/04/18 Stop Date: 09/06/18 Status: Discontinued Dextrose 50% Syringe 25 gm, 50 mL, Route: IVP, Drug Form: INJ, Dosing Weight 104.545, kg, PRN, PRN Bl ood Glucose Results, Start date: 09/04/18 10:48:00 CDT, Duration: 30 day, Stop d ate: 10/04/18 10:47:00 CDT Start Date: 09/04/18 Stop Date: 09/06/18 Status: Discontinued Dextrose 50% Syringe 12.5 gm, 25 mL, Route: IVP, Drug Form: INJ, Dosing Weight 104.545, kg, PRN, PRN Blood Glucose Results, Start date: 09/04/18 10:48:00 CDT, Duration: 30 day, Stop date: 10/04/18 10:47:00 CDT Start Date: 09/04/18 Stop Date: 09/06/18 Status: Discontinued DME Rx-external wearable defibrillator Start Date: 09/05/18 Stop Date: 09/05/18 Status: Incomplete DME Rx-external wearable defibrillator Start Date: 09/05/18 Stop Date: 09/05/18 Status: Incomplete DME Rx-external wearable defibrillator Start Date: 09/05/18 Stop Date: 09/05/18 Status: Incomplete ferrous sulfate 325 mg, 1 tab, Route: PO, Drug form: ECTAB, Daily, Dosing Weight 107.318, kg, St art date: 09/05/18 9:00:00 CDT, Duration: 30 day, Stop date: 10/04/18 9:00:00 CD T Notes: Give with food. "Do Not Crush" Start Date: 09/05/18 Stop Date: 09/06/18 Status: Discontinued gabapentin 300 mg oral capsule 300 mg, 1 cap, Route: PO, Drug form: CAP, Q12H, Dosing Weight 107.318, kg, Start date: 09/04/18 21:00:00 CDT, Duration: 30 day, Stop date: 10/04/18 9:00:00 CDT Notes: (Same as: Neurontin) Start Date: 09/04/18 Stop Date: 09/06/18 Status: Discontinued glucagon 1 mg, Route: IM, Drug form: PDR/INJ, PRN, Dosing Weight 104.545, kg, PRN Blood G lucose Results, Start date: 09/04/18 10:48:00 CDT, Duration: 30 day, Stop date: 10/04/18 10:47:00 CDT Start Date: 09/04/18 Stop Date: 09/06/18 Status: Discontinued heparin 5,000 unit, 1 mL, Route: SUB-Q, Drug form: INJ, Q12H, Dosing Weight 104.545, kg, Start date: 09/04/18 21:00:00 CDT, Stop date: 10/04/18 9:00:00 CDT Notes: porcine heparin Start Date: 09/04/18 Stop Date: 09/04/18 Status: Canceled Heparin - one time bolus for ACS 4,000 unit, 4 mL, Route: IVP, Drug form: INJ, ONCE, Dosing Weight 104.545, kg, P riority: STAT, Start date: 09/04/18 7:26:00 CDT, Stop date: 09/04/18 7:26:00 CDT Start Date: 09/04/18 Stop Date: 09/04/18 Status: Completed Heparin 30 unit/kg Bolus (Heparin Dosing Weight) Route: IVP, PRN, 2,200 unit, 2.2 mL, Drug form: INJ, PRN, Heparin Protocol, Star t date: 09/04/18 7:26:00 CDT Stop date: 10/04/18 7:25:00 CDT, 30 day Start Date: 09/04/18 Stop Date: 09/04/18 Status: Discontinued Heparin 60 unit/kg Bolus (Heparin Dosing Weight) Route: IVP, PRN, 4,500 unit, 4.5 mL, Drug form: INJ, PRN, Heparin Protocol, Star t date: 09/04/18 7:26:00 CDT Stop date: 10/04/18 7:25:00 CDT, 30 day Start Date: 09/04/18 Stop Date: 09/04/18 Status: Discontinued heparin additive 25,000 unit [12 unit/kg/hr] + Premix Diluent Dextrose 5% 500 mL 500 mL, Rate: 17.91 ml/hr, Infuse over: 27.9 hr, Route: IV, Dosing Weight 74.64 kg, Total Volume: 500 mL, Start date: 09/04/18 7:26:00 CDT, Duration: 30 day, St op date: 10/04/18 7:25:00 CDT, 1.86, m2 Start Date: 09/04/18 Stop Date: 09/04/18 Status: Discontinued hydrochlorothiazide-lisinopril 25 mg-20 mg oral tablet 1 tab, Route: PO, Drug Form: TAB, Dosing Weight 107.318, kg, Daily, Start date: 09/06/18 9:00:00 CDT, Duration: 30 day, Stop date: 10/05/18 9:00:00 CDT Start Date: 09/06/18 Stop Date: 09/05/18 Status: Canceled Lipitor 40 mg, 1 tab, Route: PO, Drug form: TAB, Bedtime, Dosing Weight 104.545, kg, Sta rt date: 09/04/18 21:00:00 CDT, Duration: 30 day, Stop date: 10/03/18 21:00:00 C DT Notes: (Same as: Lipitor) Start Date: 09/04/18 Stop Date: 09/04/18 Status: Discontinued lisinopril 10 mg, 2 tab, Route: PO, Drug form: TAB, Daily, Dosing Weight 107.318, kg, Start date: 09/06/18 9:00:00 CDT, Duration: 30 day, Stop date: 10/05/18 9:00:00 CDT Notes: (Same as: Prinivil, Zestril) Start Date: 09/06/18 Stop Date: 09/06/18 Status: Discontinued lisinopril 10 mg, Route: PO, Drug form: TAB, Daily, Dosing Weight 107.318, kg, Start date: 09/06/18 9:00:00 CDT, Duration: 30 day, Stop date: 10/05/18 9:00:00 CDT Start Date: 09/06/18 Stop Date: 09/05/18 Status: Canceled lisinopril 10 mg oral tablet 10 mg=1 tab, PO, Daily, # 30 tab, 0 Refill(s), Pharmacy: [facility] [id number] Start Date: 09/06/18 Status: Ordered Lovenox 40 mg, 0.4 mL, Route: SUB-Q, Drug form: INJ, [id number], Dosing Weight 104.545, kg , Start date: 09/04/18 13:00:00 CDT, Duration: 30 day, Stop date: 10/03/18 13:00 :00 CDT Notes: (Same as: Lovenox) Start Date: 09/04/18 Stop Date: 09/06/18 Status: Discontinued metoprolol tartrate 50 mg, 1 tab, Route: PO, Drug form: TAB, Q12H, Dosing Weight 104.545, kg, Start date: 09/04/18 21:00:00 CDT, Duration: 30 day, Stop date: 10/04/18 9:00:00 CDT Notes: (Same as: Lopressor) Start Date: 09/04/18 Stop Date: 09/06/18 Status: Discontinued metoprolol tartrate 50 mg oral tablet 50 mg=1 tab, PO, Q12H, # 60 tab, 0 Refill(s), Pharmacy: [facility] [id number] Start Date: 09/06/18 Stop Date: 10/06/18 Status: Ordered nitroglycerin 0.4 mg, Route: SL, ONCE, Dosing Weight 104.545, kg, Priority: STAT, Start date: 09/04/18 7:16:00 CDT, Stop date: 09/04/18 7:16:00 CDT Start Date: 09/04/18 Stop Date: 09/04/18 Status: Completed Plavix 300 mg, 1 tab, Route: PO, Drug form: TAB, ONCE, Dosing Weight 104.545, kg, Prior ity: STAT, Start date: 09/04/18 9:40:00 CDT, Stop date: 09/04/18 9:40:00 CDT Notes: ( Same as: Plavix) Start Date: 09/04/18 Stop Date: 09/04/18 Status: Completed Plavix 75 mg, 1 tab, Route: PO, Drug form: TAB, Daily, Dosing Weight 104.545, kg, Start date: 09/05/18 9:00:00 CDT, Duration: 30 day, Stop date: 10/04/18 9:00:00 CDT Notes: (Same As: Plavix) Start Date: 09/05/18 Stop Date: 09/06/18 Status: Discontinued potassium chloride 10 mEq, 100 mL, Route: IVPB, Drug form: INJ, Q1H, Dosing Weight 107.318, kg, Tot al Dose=20 meq, Priority: Routine, Start date: 09/04/18 22:00:00 CDT, Duration: 2 doses or times, Stop date: 09/04/18 23:00:00 CDT, Peripheral Line Notes: Infuse at a rate of 10 mEq/hr.(Same as: KCL) Start Date: 09/04/18 Stop Date: 09/04/18 Status: Discontinued potassium chloride 20 mEq, 1 tab, Route: PO, Drug form: ERTAB, ONCE, Dosing Weight 107.318, kg, Rossana ority: NOW, Start date: 09/04/18 22:04:00 CDT, Stop date: 09/04/18 22:04:00 CDT Notes: (Same as: K-Dur 20)"Do Not Crush" Give with food and full glass of water For patients unable to swallow tablet, dissolve in one half glass of water. Allo w about 2 minutes for the tablets to disintegrate. Stir before giving to prepare slurry and administer.Please exclude Patients with feeding tube less than 14 Georgian (Dobhoff, J-tube etc) and pediatric and patients. Start Date: 09/04/18 Stop Date: 09/04/18 Status: Completed potassium chloride 20 mEq, 1 tab, Route: PO, Drug form: ERTAB, ONCE, Dosing Weight 107.318, kg, Sta rt date: 09/05/18 9:00:00 CDT, Stop date: 09/05/18 9:00:00 CDT Notes: (Same as: K-)"Do Not Crush" Give with food and full glass of water For patients unable to swallow tablet, dissolve in one half glass of water. Allo w about 2 minutes for the tablets to disintegrate. Stir before giving to prepare slurry and administer.Please exclude Patients with feeding tube less than 14 Georgian (Dobhoff, J-tube etc) and pediatric and patients. Start Date: 09/05/18 Stop Date: 09/05/18 Status: Completed potassium chloride 20 mEq, 1 tab, Route: PO, Drug form: ERTAB, Daily, Dosing Weight 107.318, kg, St art date: 09/06/18 9:00:00 CDT, Duration: 30 day, Stop date: 10/05/18 9:00:00 CD T Notes: (Same as: K-Dur )"Do Not Crush" Give with food and full glass of water For patients unable to swallow tablet, dissolve in one half glass of water. Allo w about 2 minutes for the tablets to disintegrate. Stir before giving to prepare slurry and administer.Please exclude Patients with feeding tube less than 14 Georgian (Dobhoff, J-tube etc) and pediatric and patients. Start Date: 09/06/18 Stop Date: 09/05/18 Status: Canceled potassium chloride 20 mEq oral tablet, extended release 20 mEq, 1 tab, Route: PO, Drug form: ERTAB, BID, Dosing Weight 107.318, kg, Star t date: 09/06/18 9:00:00 CDT, Duration: 30 day, Stop date: 10/05/18 17:00:00 CDT Notes: (Same as: K-Dur )"Do Not Crush" Give with food and full glass of water For patients unable to swallow tablet, dissolve in one half glass of water. Allo w about 2 minutes for the tablets to disintegrate. Stir before giving to prepare slurry and administer.Please exclude Patients with feeding tube less than 14 Georgian (Dobhoff, J-tube etc) and pediatric and patients. Start Date: 09/06/18 Stop Date: 09/06/18 Status: Discontinued potassium chloride 20 mEq oral tablet, extended release 20 mEq, 1 tab, Route: PO, Drug form: ERTAB, ONCE, Dosing Weight 107.318, kg, Sta rt date: 09/05/18 21:38:00 CDT, Stop date: 09/05/18 21:38:00 CDT Notes: (Same as: K-Dur )"Do Not Crush" Give with food and full glass of water For patients unable to swallow tablet, dissolve in one half glass of water. Allo w about 2 minutes for the tablets to disintegrate. Stir before giving to prepare slurry and administer.Please exclude Patients with feeding tube less than 14 Georgian (Dobhoff, J-tube etc) and pediatric and patients. Start Date: 09/05/18 Stop Date: 09/05/18 Status: Completed Requip 1 mg, 1 tab, Route: PO, Drug form: TAB, TID, Dosing Weight 107.318, kg, Start da te: 09/04/18 17:00:00 CDT, Duration: 30 day, Stop date: 10/04/18 13:00:00 CDT Notes: (Same as: Requip) Start Date: 09/04/18 Stop Date: 09/06/18 Status: Discontinued Requip 1 mg oral tablet 1 mg=1 tab, PO, TID, # 90 tab, 0 Refill(s) Start Date: 09/04/18 Stop Date: 10/04/18 Status: Ordered simvastatin 40 mg, 1 tab, Route: PO, Drug form: TAB, Bedtime, Dosing Weight 107.318, kg, Sta rt date: 09/04/18 21:00:00 CDT, Duration: 30 day, Stop date: 10/03/18 21:00:00 C DT Notes: (Same as: Zocor) Start Date: 09/04/18 Stop Date: 09/06/18 Status: Discontinued spironolactone 25 mg oral tablet 25 mg=1 tab, PO, Daily, # 30 tab, 0 Refill(s), Pharmacy: [facility] [id number] Start Date: 09/06/18 Stop Date: 10/06/18 Status: Ordered verapamil 180 mg, 1 tab, Route: PO, Drug form: ERTAB, QAM, Dosing Weight 107.318, kg, Star t date: 09/05/18 9:00:00 CDT, Duration: 30 day, Stop date: 10/04/18 9:00:00 CDT Notes: Do not crush or chew.(Same As: Calan SR, Isoptin SR) "Avoid grapefruit a nd grapefruit juice" Start Date: 09/05/18 Stop Date: 09/06/18 Status: Discontinued Results 1 2 3 Most recent to oldest [Reference Range]: 8.8 K/CMM *HI* (09/04/18 6:47 PM) 5.2 K/CMM (09/04/18 6:17 AM) Neutrophils # [1.5-8.1 K/CMM] 1.6 K/CMM (09/04/18 6:47 PM) 1.6 K/CMM (09/04/18 6:17 AM) Lymphocytes # [1.0-5.5 K/CMM] 1.0 K/CMM *HI* (09/04/18 6:47 PM) 0.6 K/CMM (09/04/18 6:17 AM) Monocytes # [0.0-0.8 K/CMM] 0.2 K/CMM (09/04/18 6:47 PM) 0.5 K/CMM (09/04/18 6:17 AM) Eosinophils # [0.0-0.5 K/CMM] 0.1 K/CMM (09/04/18 6:47 PM) 0.1 K/CMM (09/04/18 6:17 AM) Basophils # [0.0-0.2 K/CMM] 135 pg/mL *HI* (09/04/18 6:17 AM) BNP [<=100 pg/mL] 78 mL/min/1.73m2 1 *NA* (09/04/18 1:25 PM) 65 mL/min/1.73m2 2 *NA* (09/04/18 6:17 AM) eGFR 1.1 (09/04/18 6:17 AM) A/G Ratio [0.7-1.6] 3.7 g/dL (09/04/18 6:17 AM) Albumin Lvl [3.5-5.0 g/dL] 55 unit/L (09/04/18 6:17 AM) Alk Phos [39-136 unit/L] 17 unit/L (09/04/18 6:17 AM) ALT [0-65 unit/L] 14.4 mEq/L (09/04/18 6:17 AM) AGAP [10.0-20.0 mEq/L] 19 unit/L (09/04/18 6:17 AM) AST [0-37 unit/L] 20 (09/04/18 6:17 AM) B/C Ratio [6-25] 0.9 % (09/04/18 6:47 PM) 1.4 % *HI* (09/04/18 6:17 AM) Basophils [0.0-1.0 %] 18 mg/dL (09/04/18 6:17 AM) BUN [7-22 mg/dL] 8.6 mg/dL (09/04/18 6:17 AM) Calcium Lvl [8.5-10.5 mg/dL] 157 unit/L (09/04/18 6:17 AM) Total CK [12-191 unit/L] 108 mEq/L (09/04/18 6:17 AM) Chloride Lvl [95-109 mEq/L] 23 mEq/L *LOW* (09/04/18:17 AM) CO2 [24-32 mEq/L] 0.78 mg/dL (09/04/18 1:25 PM) 0.92 mg/dL (09/04/18 6:17 AM) Creatinine Lvl [0.50-1.40 mg/dL] 2.1 % (09/04/18 6:47 PM) 5.9 % *HI* (09/04/18 6:17 AM) Eosinophils [0.0-4.0 %] 3.4 g/dL (09/04/18 6:17 AM) Globulin [2.7-4.2 g/dL] 109 mg/dL *HI* (09/04/18 6:17 AM) Glucose Lvl [70-99 mg/dL] 40.7 % (09/04/18 6:47 PM) 42.0 % (09/04/18 6:17 AM) Hct [36.0-48.0 %] 13.5 g/dL (09/04/18 6:47 PM) 14.1 g/dL (09/04/18 1:25 PM) 14.1 g/dL (09/04/18:17 AM) Hgb [12.0-16.0 g/dL] 0.88 (09/04/18 6:17 AM) INR [0.85-1.17] 3.2 mEq/L *LOW* (09/04/18 6:47 PM) 3.4 mEq/L *LOW* (09/04/18 6:17 AM) Potassium Lvl [3.5-5.1 mEq/L] 118 unit/L (09/04/18 6:17 AM) Lipase Lvl [73-393 unit/L] 13.4 % *LOW* (09/04/18 6:47 PM) 20.6 % (09/04/18 6:17 AM) Lymphocytes [20.0-40.0 %] 29.5 pg (09/04/18 6:47 PM) 29.3 pg (09/04/18:17 AM) MCH [27.0-31.0 pg] 33.3 g/dL (09/04/18 6:47 PM) 33.5 g/dL (09/04/18 6:17 AM) MCHC [32.0-36.0 g/dL] 88.6 fL (09/04/18:47 PM) 87.5 fL (09/04/18:17 AM) MCV [80.0-98.0 fL] 2.1 mg/dL (09/04/18:47 PM) 2.1 mg/dL (09/04/18:17 AM) Magnesium Lvl [1.8-2.4 mg/dL] 8.2 % (09/04/18 6:47 PM) 7.2 % (09/04/18:17 AM) Monocytes [2.0-12.0 %] 10.1 fL (09/04/18:47 PM) 10.0 fL (09/04/18 6:17 AM) MPV [7.4-10.4 fL] 142 mEq/L (09/04/18:17 AM) Sodium Lvl [135-145 mEq/L] 3.4 mg/dL (09/04/18 6:17 AM) Phosphorus [2.5-4.5 mg/dL] 209 K/CMM (09/04/18:47 PM) 216 K/CMM (09/04/18:17 AM) Platelet [133-450 K/CMM] 75.4 % *HI* (09/04/18 6:47 PM) 64.9 % (09/04/18 6:17 AM) Segs [45.0-75.0 %] 7.1 g/dL (09/04/18:17 AM) Total Protein [6.4-8.4 g/dL] 11.8 seconds *LOW* (09/04/18 6:17 AM) PT [12.0-14.7 seconds] 28.9 seconds (09/04/18:17 AM) PTT [22.9-35.8 seconds] 4.59 M/CMM (09/04/18 6:47 PM) 4.80 M/CMM (09/04/18 6:17 AM) RBC [4.20-5.40 M/CMM] 13.7 % (09/04/18 6:47 PM) 13.6 % (09/04/18 6:17 AM) RDW [11.5-14.5 %] 0.5 mg/dL (09/04/18 6:17 AM) Bili Total [0.2-1.3 mg/dL] 36.00 ng/mL 3 *CRIT* (09/04/18 6:47 PM) 38.00 ng/mL 4 *CRIT* (09/04/18 1:25 PM) 3.70 ng/mL 5 *CRIT* (09/04/18 8:27 AM) Troponin-I [0.00-0.40 ng/mL] 11.7 K/CMM *HI* (09/04/18 6:47 PM) 8.0 K/CMM (09/04/18 6:17 AM) WBC [3.7-10.4 K/CMM] 1Result Comment: The eGFR is calculated using [...] be mul tiplied by the estimated BMI. 2Result Comment: The eGFR is calculated using the [...] be mul tiplied by the estimated BMI. 3Result Comment: Critical Result(s) called to dung amos at 09/04/2018 20:25 by ms. Read back OK. 4Result Comment: Critical Result(s) called to Elva Velásquez at 09/04/2018 14:43 by DMF. Read back OK. 5Result Comment: Critical Result(s) called to Pedro Matias at 09/04/2018 08:56 by DMF. Read back OK. Immunizations Not Given Vaccine Date Status Refusal Reason pneumococcal 13-valent vaccine 12/05/16 Not Given Patient Refuses Procedures Procedure Date Related Diagnosis Body Site Status Arthroscopy of knee 2002 Completed Knee replacement1 Completed Mammogram2 Completed 1right 59271 Social History Social History Type Response Substance [...] SOB with exertion 2na Assessment and Plan Extracted from: Title: Clinical Document Author: Chemo Hay MD Date: 09/05/18 Hospitalist Consult Note [facility] CHEMO HAY MD, PhD SUBJECTIVE: Patient seen and examined, [...] illicit drug abuse. OBJECTIVE: Vitals and Temp: VitalsTmp(F)[id number] 09/05 20:[id number]--- 09/05 15:[id number]--- 09/05 13:00----[id number]--- 09/05 12:421243-----[id number]--- 09/05 11:00----[id number]--- 24 Hr Tmax: 98F (36.67c) at 09/05 12:00Vital Signs are the last 5 in the past 48 hours. Labs (Last four charted values) WBC H 11.7(SEPTEMBER 04)8.0(SEPTEMBER 04) Hgb 13.5(SEPTEMBER 04)14.1(SEPTEMBER 04)14.1(SEPTEMBER 04) Hct 40.7(SEPTEMBER 04)42.0(SEPTEMBER 04) Plt 209(SEPTEMBER 04)216(SEPTEMBER 04) Na 142(SEPTEMBER 04) K L 3.2(SEPTEMBER 04)L 3.4(SEPTEMBER 04) CO2 L 23(SEPTEMBER 04) Cl 108(SEPTEMBER 04) Cr 0.78(SEPTEMBER 04)0.92(SEPTEMBER 04) BUN 18(SEPTEMBER 04) Glucose Random H 109(SEPTEMBER 04) Mg 2.1(SEPTEMBER 04)2.1(SEPTEMBER 04) Phos 3.4(SEPTEMBER 04) Ca 8.6(SEPTEMBER 04) PT L 11.8(SEPTEMBER 04) INR 0.88(SEPTEMBER 04) PTT 28.9(SEPTEMBER 04) Troponin C 36.00(SEPTEMBER 04)C 38.00(SEPTEMBER 04)C 3.70(SEPTEMBER 04)0.14(SEPTEMBER 04) Total CK 157(SEPTEMBER 04) MEDICATIONS Scheduled Meds (12):aspirin, cloNIDine (cloNIDine [...] tablet, extended release) Continuous Infusions: None ASSESSMENT & EXAM: GENERAL: In no apparent distress at [...] deficits noted. SKIN: no rashes noted. DIAGNOSES & PROBLEMS: 1. NSTEMI 2. Nonischermic cardiomyopathy 3. HTN 4. Morbid obesity PLAN & TREATMENT: Admit Cath done - cath neg Change meds from Verapamil to lopressor, add hali, add aldactone Monitor BP DC when cleared by cardiology dw with patient, nurse, product examiner Transfer patient to tele floor Extracted from: Title: Clinical Document Author: Db Lee Date: 09/04/18 [facility] CONS[facility] NOTE Reason [...] Over the needle catheter ALLERGIES Allergies (1) ActiveReaction MacrobidNausea/vomiting Review of Systems CONSTITUTIONAL: no fever. chills. [...] or depression GENERAL EXAMINATION Vitals and Temp: VitalsTmp(F)[id number] 09/04 09:14----[id number]--- 09/04 08:25----[id number] 2.0L/m 09/04 07:26----[id number] 2.0L/m 09/04 06:[id number]--- 09/04 05:[id number]--- 24 Hr Tmax: 98F (36.67c) at 09/04 06:09Vital Signs are the last 5 in the [...] LABS Labs (Last four charted values) WBC 8.0(SEPTEMBER 04) Hgb 14.1(SEPTEMBER 04) Hct 42.0(SEPTEMBER 04) Plt 216(SEPTEMBER 04) Na 142(SEPTEMBER 04) K L 3.4(SEPTEMBER 04) CO2 L 23(SEPTEMBER 04) Cl 108(SEPTEMBER 04) Cr 0.92(SEPTEMBER 04) BUN 18(SEPTEMBER 04) Glucose Random H 109(SEPTEMBER 04) Mg 2.1(SEPTEMBER 04) Phos 3.4(SEPTEMBER 04) Ca 8.6(SEPTEMBER 04) PT L 11.8(SEPTEMBER 04) INR 0.88(SEPTEMBER 04) PTT 28.9(SEPTEMBER 04) Troponin C 3.70(SEPTEMBER 04)0.14(SEPTEMBER 04) Total CK 157(SEPTEMBER 04) Radiology IMPRESSION: Non-STEMI Chest pain Morbid [...]
--- OUTSIDE RECORDS SUMMARY | 2018-11-08 11:40 | XMS REPORT | CCD ---
Author Author Auto Generated Organization [facility] Address Unknown Phone Unavailable Care Team Providers Care Licensed Surveyor Name Role Phone Azar English RP Allergies, Adverse Reactions, Alerts Substance Reaction Status Pyridium Active
--- OUTSIDE RECORDS SUMMARY | 2018-11-08 11:40 | XMS REPORT | CCD ---
Author Author Auto Generated Organization [facility] Address Unknown Phone Unavailable Care Team Providers Care Visual Associate Name Role Phone Azar English RP Allergies, Adverse Reactions, Alerts Substance Reaction Status NKDA Canceled Pyridium Active
--- OUTSIDE RECORDS SUMMARY | 2018-11-08 11:40 | XMS REPORT | CCD ---
Author Author Auto Generated Organization [facility] Address Unknown Phone Unavailable Care Team Providers Care Display Decorator Name Role Phone Azar English CP Allergies, Adverse Reactions, Alerts Substance Reaction Status Pyridium Active
--- OUTSIDE RECORDS SUMMARY | 2018-11-08 11:40 | XMS REPORT | Summary of Care ---
Author Author [facility] Organization [facility] Address Unknown Phone Unavailable Encounter HQ Encntr_alias(FIN) [id number] Date(s): 09/27/15 - 09/27/15 [facility] [address] [place] [address]- [phone] Discharge Disposition: Home Attending Physician: Larry Francisco MD Referring Physician: [...]
--- OUTSIDE RECORDS SUMMARY | 2018-11-08 11:40 | XMS REPORT | Summary of Care ---
Author Author [facility] Address Unknown Phone Unavailable Encounter HQ Encntr_alias(FIN) [id number] Date(s): 05/29/17 - 05/30/[address], [address] [place] [address]- [phone] Vital Signs No data available for this [...] of knee 2002 Completed Knee replacement1 Completed 1right Social History Social History Type Response Substance Abuse Use: None. Exercise Exercise duration: 0.1 Alcohol Never, Previous treatment: None. Smoking Status Never smoker; Exposure to Tobacco Smoke None; Cigarette Smoking Last 365 Days No; Reg Smoking Cessation Counseling No entered on: 07/02/17 1no exercise due to pain, denies SOB with exertion Assessment and Plan No data available for this section
--- OUTSIDE RECORDS SUMMARY | 2018-11-08 11:40 | XMS REPORT | CCD ---
Author Author Auto Generated Organization [facility] Address Unknown Phone Unavailable Care Team Providers Care Crab Fisher Name Role Phone Azar English CP Allergies, Adverse Reactions, Alerts Substance Reaction Status Pyridium Active
--- OUTSIDE RECORDS SUMMARY | 2018-11-08 11:40 | XMS REPORT | CCD ---
Author Author Auto Generated Organization [facility] Address Unknown Phone Unavailable Care Team Providers Care Envelope Maker Name Role Phone Azar English CP Allergies, Adverse Reactions, Alerts Substance Reaction Status Pyridium Active
--- OUTSIDE RECORDS SUMMARY | 2018-11-08 11:40 | XMS REPORT | CCD ---
Author Author Auto Generated Organization [facility] Address Unknown Phone Unavailable Care Team Providers Care Four Roll Calender Operator Name Role Phone Azar English CP Allergies, Adverse Reactions, Alerts Substance Reaction Status Pyridium Active
--- OUTSIDE RECORDS SUMMARY | 2018-11-08 11:40 | XMS REPORT | Summary of Care ---
Author Author [facility] Organization [facility] Address Unknown Phone Unavailable Encounter HQ Sandintr_chitra(FIN) [id number] Date(s): 11/23/16 - 11/23/16 [facility] [address] [place] [address]- [phone] Discharge Disposition: Home or Self Care Attending Physician: Evelio Allison MD Referring Physician: Evelio Allison MD Vital Signs No data available for this section Problem List Condition Effective Dates Status Health Status Informant Dyslipidemia(Confirm Resolved ed) HTN Resolved (hypertension)(Confi rmed) Restless leg Resolved syndrome(Confirmed) Allergies, Adverse Reactions, Alerts Substance Reaction Severity Status Pyridium Active Medications No data available for this section Results No data available for this section Immunizations No data available for this section Procedures Procedure Date Related Diagnosis Body Site Knee1 1RIGHT SIDE Social History Social History Type Response Smoking Status Never smoker; Exposure to Tobacco Smoke None; Cigarette Smoking Last 365 Days No; Reg Smoking Cessation Counseling No Assessment and Plan No data available for this section
--- OUTSIDE RECORDS SUMMARY | 2018-11-08 11:40 | XMS REPORT | Summary of Care ---
Author Author [facility] Organization [facility] Address Unknown Phone Unavailable Care Team Providers Care Alignment Mechanic Name Role Phone Azar English PCP Encounter HQ Ethel([facility]) [id number] Date(s): 03/25/18 - 03/26/[address] [place], [place] [address]- [phone] Vital Signs No data available for this section Problem List Condition Effective Dates Status Health Status Informant Dyslipidemia(Confirm Active ed) HTN Active (hypertension)(Confi rmed) Menopause(Confirmed) Resolved Mitral valve Active prolapse(Confirmed) Morbid Active obesity(Confirmed) Osteoarthritis(Confi Active rmed) Restless leg Active syndrome(Confirmed) Allergies, Adverse Reactions, Alerts Substance Reaction Severity Status Macrobid Nausea/vomiting Active Medications simvastatin 40 mg oral tablet =1 tab, PO, Daily, # 90 tab, Pharmacy: [facility] [id number] Start Date: 03/25/18 Stop Date: 06/30/18 Status: Completed Results No data available for this section Immunizations Not Given Vaccine Date Status Refusal Reason pneumococcal 13-valent vaccine 12/05/16 Not Given Patient Refuses Procedures Procedure Date Related Diagnosis Body Site Status Arthroscopy of knee 2002 Completed Knee replacement1 Completed Mammogram2 Completed 1right 18219 Social History Social History Type Response Substance [...]
--- OUTSIDE RECORDS SUMMARY | 2018-11-08 11:40 | XMS REPORT | Summary of Care ---
Author Author [facility] Address Unknown Phone Unavailable Encounter HQ Leandror_marianneradha(FABIANA) [id number] Date(s): 09/13/15 - 10/12/15 [facility] Discharge Disposition: Home Attending Physician: Vinny Rose MD Vital Signs [...]
--- OUTSIDE RECORDS SUMMARY | 2018-11-08 11:40 | XMS REPORT | Summary of Care ---
Author Author [facility] Organization [facility] Address Unknown Phone Unavailable Encounter TOD Davenport(FABIANA) [id number] Date(s): 12/05/16 - 12/06/16 [facility] [address] [place] [phone] Discharge Disposition: Home or Self Care Attending Physician: Evelio Allison MD Admitting Physician: Evelio Allison MD Referring Physician: Evelio Allison MD Vital Signs 1 2 3 Most recent to oldest [Reference Range]: 162.56 cm (11/26/16 7:27 PM) Height 98.0 DegF (12/06/16 7:00 AM) 97.5 DegF (12/06/16 4:30 AM) 97.5 DegF (12/06/16 12:00 AM) Temperature Oral [96.4-99.1 DegF] 128/64 mmHg (12/06/16 7:00 AM) 120/55 mmHg (12/06/16 4:30 AM) 110/77 mmHg (12/06/16 12:00 AM) Blood Pressure [90-140/60-90 mmHg] 17 BRMIN (12/06/16 7:00 AM) 16 BRMIN (12/06/16 4:30 AM) 16 BRMIN (12/06/16 12:00 AM) Respiratory Rate [14-20 BRMIN] 67 bpm (12/06/16 7:00 AM) 69 bpm (12/06/16 4:30 AM) 70 bpm (12/06/16 12:00 AM) Peripheral Pulse Rate [60-100 bpm] 106.591 kg (12/05/16 6:00 AM) Weight 40.34 m2 (12/05/16 6:00 AM) Body Mass Index Problem List Condition Effective Dates Status Health Status Informant Dyslipidemia(Confirm Active ed) HTN Active (hypertension)(Confi rmed) Menopause(Confirmed) Resolved Mitral valve Active prolapse(Confirmed) Osteoarthritis(Confi Active rmed) Restless leg Active syndrome(Confirmed) Allergies, Adverse Reactions, Alerts Substance Reaction Severity Status Macrobid Nausea/vomiting Active Medications acetaminophen 325 mg oral tablet 650 mg, 2 tab, Route: PO, Drug form: TAB, Q6H, Dosing Weight 104.545, kg, PRN Fo r Temp > 100.4 F, Start date: 12/05/16 10:18:00 CDT, Duration: 30 day, Stop date: 01/04/17 10:17:00 CDT Notes: Do not exceed 4 gm/day. (Same as: Tylenol) Start Date: 12/05/16 Stop Date: 12/06/16 Status: Discontinued Aleve 220 mg oral tablet 440 mg=2 tab, PO, PRN, PRN Pain, # 60 tab, 0 Refill(s) Start Date: 11/26/16 Status: Ordered ANES albuterol 0.083% inhalation solution 2.49 mg, 3 mL, Route: NEB, Drug form: SOLN, PRN, Dosing Weight 106.591, kg, PRN Respiratory Protocol, Start date: 12/05/16 9:11:00 CDT, Duration: 30 day, Stop d ate: 01/04/17 9:10:00 CDT Notes: SEE RT DOCUMENTATION (Same as: Proventil) Start Date: 12/05/16 Stop Date: 12/05/16 Status: Discontinued ANES diphenhydrAMINE 12.5 mg, 0.25 mL, Route: IVP, Drug form: INJ, Q6H, Dosing Weight 106.591, kg, AK N Itching, Start date: 12/05/16 9:11:00 CDT, Stop date: 12/05/16 14:00:00 CDT Notes: (Same as: Benadryl) Start Date: 12/05/16 Stop Date: 12/05/16 Status: Discontinued ANES flumazenil 0.2 mg, 2 mL, Route: IVP, Drug form: INJ, PRN, Dosing Weight 106.591, kg, PRN Be nzodiazepine Reversal, Initial dose, Start date: 12/05/16 9:11:00 CDT, Stop date : 12/05/16 14:00:00 CDT Notes: (Same as: Romazicon) Start Date: 12/05/16 Stop Date: 12/05/16 Status: Discontinued ANES hydrALAZINE 10 mg, 0.5 mL, Route: IVP, Drug form: INJ, Q20Min, Dosing Weight 106.591, kg, AK N Elevated BP, Start date: 12/05/16 9:11:00 CDT, Duration: 2 doses or times, Sto p date: 12/05/16 14:00:00 CDT Notes: (Same as: Apresoline)Push over 5 minutes Start Date: 12/05/16 Stop Date: 12/05/16 Status: Discontinued ANES LORazepam 0.5 mg, 0.25 mL, Route: IVP, Drug form: INJ, Q20Min, Dosing Weight 106.591, kg, PRN Anxiety, Start date: 12/05/16 9:11:00 CDT, Duration: 3 doses or times, Stop date: 12/05/16 14:00:00 CDT Notes: (Same as: Ativan) Start Date: 12/05/16 Stop Date: 12/05/16 Status: Discontinued ANES morphine Sulfate 2 mg, 0.2 mL, Route: IVP, Drug form: INJ, Q5Min, Dosing Weight 106.591, kg, PRN Pain Score 4-6, Start date: 12/05/16 9:11:00 CDT, Duration: 5 doses or times, St op date: 12/05/16 14:00:00 CDT Notes: (Same as:MORPhine Sulfate) Start Date: 12/05/16 Stop Date: 12/05/16 Status: Discontinued ANES morphine Sulfate 4 mg, 0.4 mL, Route: IVP, Drug form: INJ, Q5Min, Dosing Weight 106.591, kg, PRN Pain Score 7-10, Start date: 12/05/16 9:11:00 CDT, Duration: 3 doses or times, S top date: 12/05/16 14:00:00 CDT Notes: (Same as:MORPhine Sulfate) Start Date: 12/05/16 Stop Date: 12/05/16 Status: Discontinued ANES naloxone 0.4 mg, 1 mL, Route: IVP, Drug form: INJ, Q2MIN, Dosing Weight 106.591, kg, PRN Narcotic Reversal, Start date: 12/05/16 9:11:00 CDT, Duration: 8 doses or times, Stop date: Limited # of times Notes: Same as Narcan Start Date: 12/05/16 Stop Date: 12/05/16 Status: Discontinued ANES ondansetron 4 mg, 2 mL, Route: IVP, Drug form: INJ, ONCE, Dosing Weight 106.591, kg, PRN [place] & Vomiting, Start date: 12/05/16 9:11:00 CDT Notes: (Same as: Zoan) MEDICATION WASTE Product Size: 4 mgProduct Was susan: ___ mg Start Date: 12/05/16 Stop Date: 12/05/16 Status: Discontinued ANES oxyCODONE 10 mg, 2 tab, Route: PO, Drug form: TAB, Q4H, Dosing Weight 106.591, kg, PRN Sherry n Score 7-10, Start date: 12/05/16 9:11:00 CDT, Stop date: 12/05/16 14:00:00 CDT Notes: (Same as: Roxicodone) Start Date: 12/05/16 Stop Date: 12/05/16 Status: Discontinued aspirin 325 mg, 1 tab, Route: PO, Drug form: ECTAB, Q12H, Dosing Weight 106.591, kg, For patients with risk of bleeding, Start date: 12/05/16 14:19:00 CDT, Duration: 30 day, Stop date: 01/04/17 9:00:00 CDT Notes: (Do Not Crush) Do not crush or chew. Start Date: 12/05/16 Stop Date: 12/06/16 Status: Discontinued aspirin 325 mg tablet, enteric coated 325 mg, Route: PO, Drug form: ECTAB, BID, Dosing Weight 106.591, kg, Start date: 12/05/16 17:00:00 CDT, Duration: 30 day, Stop date: 01/04/17 9:00:00 CDT Start Date: 12/05/16 Stop Date: 12/05/16 Status: Deleted aspirin 325 mg tablet, enteric coated 325 mg=1 tab, PO, Q12H, # 42 tab, 0 Refill(s), Pharmacy: [facility] [id number] Start Date: 12/06/16 Stop Date: 12/27/16 Status: Ordered aspirin 81 mg tablet, enteric coated 81 mg=1 tab, PO, Daily, # 90 tab, 3 Refill(s) Start Date: 11/26/16 Stop Date: 12/06/16 Status: Discontinued ceFAZolin (SCIP) + sodium chloride 0.9% INJ 100 mL 1 gm, Route: IVPB, Q6H-02, Dosing Weight 106.591, kg, Start date: 12/05/16 14:00 :00 CDT, Duration: 3 doses or times, Stop date: 12/06/16 2:00:00 CDT, ABX Indica tion: Surgical Prophylaxis Notes: (Same As: Christina Peter) MEDICATION WASTE Product Size: 1000 mgP roduct Wasted: ___ mg Start Date: 12/05/16 Stop Date: 12/06/16 Status: Completed CeleBREX 400 mg, 2 cap, Route: PO, Drug form: CAP, ONCE, Dosing Weight 106.591, kg, Start date: 12/05/16 6:23:00 CDT, Stop date: 12/05/16 6:23:00 CDT Notes: NSAID. Please check indication. Not for seizure. (Same As: CeleBREX) Start Date: 12/05/16 Stop Date: 12/05/16 Status: Completed clindamycin (SCIP) 600 mg, 50 mL, Route: IVPB, Drug form: INJ, Q6H, Dosing Weight 106.591, kg, Star t date: 12/05/16 13:00:00 CDT, Duration: 3 doses or times, Stop date: 12/06/16 1 :00:00 CDT, ABX Indication: Surgical Prophylaxis Start Date: 12/05/16 Stop Date: 12/06/16 Status: Completed cloNIDine 0.1 mg/12 hr oral tablet, extended release 0.1 mg, 1 tab, Route: PO, Drug form: ERTAB, Bedtime, Dosing Weight 106.591, kg, Start date: 12/05/16 21:00:00 CDT, Duration: 30 day, Stop date: 01/03/17 21:00:0 0 CDT Start Date: 12/05/16 Stop Date: 12/05/16 Status: Deleted cloNIDine 0.1 mg/12 hr oral tablet, extended release 0.1 mg=1 tab, PO, Bedtime, # 30 tab, 0 Refill(s) Start Date: 11/26/16 Status: Ordered Clonidine 0.1mg/12 hr ER tablet Clonidine 0.1mg/12 hr ER tablet, 0.1 mg/12 hr ER tab, Drug form: MISC, Route: PO , Bedtime, 12/06/16 21:00:00 CDT, Duration: 30 day, Stop date: 01/04/17 21:00:00 CDT Start Date: 12/06/16 Stop Date: 12/06/16 Status: Canceled Colace 100 mg oral capsule 100 mg, 1 cap, Route: PO, Drug form: CAP, BID, Dosing Weight 104.545, kg, Start date: 12/05/16 17:00:00 CDT, Duration: 30 day, Stop date: 01/04/17 9:00:00 CDT Notes: (Same as: Colace) (Do Not Crush) Start Date: 12/05/16 Stop Date: 12/06/16 Status: Discontinued dexamethasone 4 mg, 1 mL, Route: IVP, Drug form: INJ, ONCE, Dosing Weight 106.591, kg, Start d ate: 12/05/16 6:23:00 CDT, Stop date: 12/05/16 6:23:00 CDT Notes: Concentration: 4mg/ml Start Date: 12/05/16 Stop Date: 12/05/16 Status: Completed Dulcolax Laxative 10 mg, 2 tab, Route: PO, Drug form: ECTAB, Bedtime, Dosing Weight 104.545, kg, S tart date: 12/05/16 21:00:00 CDT, Duration: 30 day, Stop date: 01/03/17 21:00:00 CDT Notes: (Same As: Dulcolax, Correctol) (Do Not Crush) "Do Not Crush" Start Date: 12/05/16 Stop Date: 12/06/16 Status: Discontinued Dulcolax Laxative 10 mg, 1 supp, Route: AK, Drug form: SUPP, ONCE, Dosing Weight 104.545, kg, PRN as needed for constipation, Start date: 12/05/16 10:18:00 CDT Notes: (Same As: Dulcolax, Bisco-Lax) Start Date: 12/05/16 Stop Date: 12/06/16 Status: Discontinued Feosol 325 mg oral tablet 325 mg, 1 tab, Route: PO, Drug form: TAB, BID, Dosing Weight 104.545, kg, Start date: 12/05/16 17:00:00 CDT, Duration: 30 day, Stop date: 01/04/17 9:00:00 CDT Notes: Give with food.iron elemental [id number] as ferrous sulfateDose=___mg lupe mental iron Start Date: 12/05/16 Stop Date: 12/06/16 Status: Discontinued gabapentin 100 mg oral capsule 100 mg=1 cap, PO, BID, # 90 cap, 1 Refill(s) Start Date: 11/26/16 Status: Ordered gabapentin 300 mg oral capsule 300 mg, 1 cap, Route: PO, Drug form: CAP, BID, Dosing Weight 106.591, kg, Start date: 12/05/16 17:00:00 CDT, Duration: 30 day, Stop date: 01/04/17 9:00:00 CDT Notes: (Same as: Neurontin) Start Date: 12/05/16 Stop Date: 12/06/16 Status: Discontinued hydrOXYzine 25 mg, Route: PO, Drug form: CAP, ONCE, Dosing Weight 106.591, kg, PRN Itching, Start date: 12/05/16 6:53:00 CDT Start Date: 12/05/16 Stop Date: 12/05/16 Status: Completed Indapamide 2. 5mg tablet Indapamide 2. 5mg tablet, 2.5 mg, Drug form: MISC, Route: PO, QAM, 12/06/16 9:00 :00 CDT, Duration: 30 day, Stop date: 01/04/17 9:00:00 CDT Start Date: 12/06/16 Stop Date: 12/06/16 Status: Discontinued indapamide 2.5 mg oral tablet 1 tab, Route: PO, Drug form: TAB, QAM, Dosing Weight 106.591, kg, Start date: 9:00:00 CDT, Duration: 30 day, Stop date: 01/03/17 9:00:00 CDT Start Date: 12/05/16 Stop Date: 12/05/16 Status: Deleted iron sulfate (ferrous sulfate) 325 mg oral tablet 325 mg=1 tab, PO, Daily, # 270 tab, 0 Refill(s) Start Date: 11/26/16 Status: Ordered Lactated Ringers 1,000 mL 1,000 mL, Rate: 75 ml/hr, Infuse over: 13.3 hr, Route: IV, Dosing Weight 106.591 kg, Total Volume: 1,000, Start date: 12/05/16 10:18:00 CDT, Duration: 30 day, S top date: 01/04/17 10:17:00 CDT Start Date: 12/05/16 Stop Date: 12/06/16 Status: Discontinued levothyroxine 25 microgram, 1 tab, Route: PO, Drug form: TAB, Daily, Dosing Weight 106.591, kg , Start date: 12/06/16 6:30:00 CDT, Duration: 30 day, Stop date: 01/04/17 6:30:0 0 CDT Notes: Take 1 hour before or 2 hours after meal; Enteral feeds may interefere wi th the absorption of this medication. (Same as:Levothroid) Start Date: 12/06/16 Stop Date: 12/06/16 Status: Discontinued Maalox Advanced Regular Strength SUSP 30 mL, Route: PO, Drug Form: SUSP, Dosing Weight 104.545, kg, Q4H, PRN Indigesti on, Start date: 12/05/16 10:18:00 CDT, Duration: 30 day, Stop date: 01/04/17 10: 17:00 CDT Notes: (aluminum hydroxide-magnesium hyd- simethicone [phone]/5ml TONYA) (Sa me as: Maalox Plus Extra Strength) Start Date: 12/05/16 Stop Date: 12/06/16 Status: Discontinued Metronidazole 1% topical gel Metronidazole 1% topical gel, topical, Drug form: MISC, Route: TOP, BID, 7 17:00:00 CDT, Duration: 30 day, Stop date: 01/04/17 9:00:00 CDT Start Date: 12/05/16 Stop Date: 12/06/16 Status: Discontinued metroNIDAZOLE topical 0.75% gel Route: TOP, BID, Drug form: GEL, Start date: 12/05/16 9:00:00 CDT, Duration: 30 day, Stop date: 01/03/17 17:00:00 CDT Start Date: 12/05/16 Stop Date: 12/05/16 Status: Deleted Milk of Magnesia 30 ml, Route: PO, Drug Form: SUSP, Dosing Weight 104.545, kg, Q6H, PRN as needed for constipation, Start date: 12/05/16 10:18:00 CDT, Duration: 30 day, Stop husam e: 01/04/17 10:17:00 CDT Notes: (Same as: Milk of Magnherrera, MOM) Start Date: 12/05/16 Stop Date: 12/06/16 Status: Discontinued Milk of Magnesia 30 ml, Route: PO, Drug Form: SUSP, Dosing Weight 104.545, kg, Daily, Start date: 12/06/16 9:00:00 CDT, Duration: 30 day, Stop date: 01/04/17 9:00:00 CDT Notes: (Same as: Milk of Magnesia, MOM) Start Date: 12/06/16 Stop Date: 12/06/16 Status: Discontinued morphine Sulfate 5 mg, 0.5 mL, Route: IVP, Drug form: INJ, Q3H, Dosing Weight 104.545, kg, PRN Pa in Score 6-10, For breakthrough pain, Start date: 12/05/16 10:18:00 CDT, Duratio n: 30 day, Stop date: 01/04/17 10:17:00 CDT Notes: (Same as:MORPhine Sulfate) Start Date: 12/05/16 Stop Date: 12/06/16 Status: Discontinued [place] 10/325 oral tablet 2 tab, Route: PO, Drug Form: TAB, Dosing Weight 104.545, kg, Q4H, PRN Pain Score 4-6, Start date: 12/05/16 10:18:00 CDT, Duration: 30 day, Stop date: 01/04/17 1 0:17:00 CDT Notes: Do not exceed 4gm/day of acetaminophen. (Same as: [place] 325/10) Start Date: 12/05/16 Stop Date: 12/06/16 Status: Discontinued [place] 10/325 oral tablet 2 tab, PO, Q4H, PRN Pain Score 4-6, 0 Refill(s) Start Date: 12/06/16 Status: Ordered Ofirmev 1,000 mg, 100 mL, Route: IV, Drug form: INJ, ONCE, Dosing Weight 106.591, kg, fo r > or=50 kg, Start date: 12/05/16 6:23:00 CDT, Stop date: 12/05/16 6:23:00 CDT Notes: Infuse over 15 minutesDo not exceed 4gm/day of acetaminophen MEDICAT ION WASTE Product Size: 1000 mgProduct Wasted: ___ mg Start Date: 12/05/16 Stop Date: 12/05/16 Status: Ordered oxyCONTIN 10 mg, 1 tab, Route: PO, Drug form: ERTAB, ONCE, Dosing Weight 106.591, kg, Star t date: 12/05/16 6:23:00 CDT, Stop date: 12/05/16 6:23:00 CDT Notes: Do not crush or chew.(Same as: OxyContin) Start Date: 12/05/16 Stop Date: 12/05/16 Status: Completed Pepcid 20 mg oral tablet 20 mg, 1 tab, Route: PO, Drug form: TAB, Q12H, Dosing Weight 104.545, kg, PRN In digestion, Start date: 12/05/16 10:18:00 CDT, Duration: 30 day, Stop date: 01/04 10:17:00 CDT Notes: (Same as: Pepcid) Start Date: 12/05/16 Stop Date: 12/06/16 Status: Discontinued Percocet 5/325 oral tablet 2 tab, Route: PO, Drug Form: TAB, Dosing Weight 104.545, kg, Q4H, PRN Pain Score 7-10, Start date: 12/05/16 10:18:00 CDT, Duration: 30 day, Stop date: 01/04/17 10:17:00 CDT Notes: Do not exceed 4gm/day of acetaminophen. (Same as: Percocet-5/325) Start Date: 12/05/16 Stop Date: 12/06/16 Status: Discontinued polymyxin B sulfate + sodium chloride 0.9% 250 mL INJ (for IV set) 250 mL 125,000 unit, Route: IRRIG, ONCALL, Start date: 12/05/16 7:00:00 CDT, Duration: 1 doses or times, Stop date: 12/05/16 13:00:00 CDT Notes: (Same as: Polymyxin B Sulfate) Start Date: 12/05/16 Stop Date: 12/05/16 Status: Discontinued potassium chloride 20 mEq, 200 mL, Route: IV, Drug form: INJ, ONCE, Dosing Weight 106.591, kg, Star t date: 12/05/16 7:10:00 CDT, Stop date: 12/05/16 7:10:00 CDT Notes: Infuse at a rate of 10 mEq/hr.(Same as: KCL) Start Date: 12/05/16 Stop Date: 12/05/16 Status: Completed remove patch 1 patch, Route: TOP, Drug form: ERFILM, ONCE, Start date: 12/05/16 6:38:00 CDT, Stop date: 12/05/16 6:38:00 CDT Notes: Remove old patch before application of new patch. Start Date: 12/05/16 Stop Date: 12/05/16 Status: Ordered Requip 1 mg, 1 tab, Route: PO, Drug form: TAB, ONCE, Dosing Weight 106.591, kg, Start d ate: 12/05/16 13:47:00 CDT, Stop date: 12/05/16 13:47:00 CDT Notes: (Same as: Requip) Start Date: 12/05/16 Stop Date: 12/05/16 Status: Completed rOPINIRole 1 mg, 1 tab, Route: PO, Drug form: TAB, BID, Dosing Weight 106.591, kg, Start da te: 12/05/16 9:00:00 CDT, Duration: 30 day, Stop date: 01/03/17 17:00:00 CDT Notes: (Same as: Requip) Start Date: 12/05/16 Stop Date: 12/06/16 Status: Discontinued rOPINIRole 0.5 mg oral tablet 0.5 mg=1 tab, PO, Daily, # 90 tab, 0 Refill(s) Start Date: 11/26/16 Stop Date: 12/06/16 Status: Discontinued rOPINIRole 1 mg oral tablet 1 mg=1 tab, PO, BID, # 90 tab, 0 Refill(s) Start Date: 11/26/16 Status: Ordered ropivacaine 100 mL, Route: InFILtration(local), Drug Form: INJ, ONCALL, Start date: 12/05/16 7:00:00 CDT, Stop date: 12/05/16 12:00:00 CDT Notes: NOT FOR IV useRopivacaine 5 mg/mL (49.25 mL) Epinephrine 1 mg/mL (0.5 mL) Clonidine 0.1 mg/mL (0.8 mL) Ketorolac 30 mg/mL (1 mL) Normal Saline 48 .45 mL Start Date: 12/05/16 Stop Date: 12/05/16 Status: Discontinued scopolamine 1.5 mg transdermal film 1 patch, Route: TOP, Drug Form: ERFILM, Dosing Weight 106.591, kg, PRE OP, Start date: 12/05/16 7:00:00 CDT, Stop date: 12/05/16 10:00:00 CDT Notes: Change patch every 72 hours (Same as: Transderm-Scop) Start Date: 12/05/16 Stop Date: 12/05/16 Status: Completed simvastatin 40 mg, 2 tab, Route: PO, Drug form: TAB, Bedtime, Dosing Weight 106.591, kg, Sta rt date: 12/05/16 21:00:00 CDT, Duration: 30 day, Stop date: 01/03/17 21:00:00 C DT Notes: (Same as: Zocor) Start Date: 12/05/16 Stop Date: 12/06/16 Status: Discontinued tramadol 50 mg oral tablet 50 mg=1 tab, PO, PRN, PRN Pain, # 40 tab, 0 Refill(s) Start Date: 11/26/16 Status: Ordered tranexamic acid + sodium chloride 0.9% INJ 100 mL 1 gm, 10 mL, Route: IVPB, ONCE, Dosing Weight 106.591, kg, Start date: 12/05/16 16:18:00 CDT, Stop date: 12/05/16 16:18:00 CDT Notes: (Same As: Cyklokapron) Start Date: 12/05/16 Stop Date: 12/05/16 Status: Completed Tylenol 8 HR Arthritis Pain 650 mg oral tablet, extended release 1,300 mg=2 tab, PO, PRN, 0 Refill(s) Start Date: 11/26/16 Status: Ordered vancomycin 1,500 mg, 250 mL, Route: IVPB, Drug form: INJ, ONCE, Dosing Weight 106.591, kg, Start date: 12/05/16 6:23:00 CDT, Stop date: 12/05/16 6:23:00 CDT, ABX Indicatio n: Surgical Prophylaxis Notes: TIME CRITICAL MEDICATIONSame as: Vancocin-NS (premixed)Infusion rate< 1000 mg: infuse over 1 [id number] - 1500 mg: infuse over 1.5 [id number] - 2000 mg: infuse over 2 hours> 2001 mg: infuse over 2.5 hours Start Date: 12/05/16 Stop Date: 12/05/16 Status: Completed vancomycin + sodium chloride 0.9% 250 mL INJ (for IV set) 250 mL 500 mg, Route: IRRIG, ONCALL, Start date: 12/05/16 7:00:00 CDT, Duration: 1 dose s or times, Stop date: 12/05/16 13:00:00 CDT, ABX Indication: Surgical Prophylax is Notes: TIME CRITICAL MEDICATION(Same As: Vancocin) Start Date: 12/05/16 Stop Date: 12/05/16 Status: Discontinued Zofran 4 mg, 2 mL, Route: IV, Drug form: INJ, Q6H, Dosing Weight 104.545, kg, PRN Nause a, Start date: 12/05/16 10:18:00 CDT, Duration: 30 day, Stop date: 01/04/17 10:1 7:00 CDT Notes: (Same as: Zofran) MEDICATION WASTE Product Size: 4 mgProduct Was susan: ___ mg Start Date: 12/05/16 Stop Date: 12/06/16 Status: Discontinued Zofran 4 mg, 2 mL, Route: IVP, Drug form: INJ, ONCE, Dosing Weight 106.591, kg, Start d ate: 12/05/16 6:02:00 CDT, Stop date: 12/05/16 6:02:00 CDT Notes: (Same as: Amanda) MEDICATION WASTE Product Size: 4 mgProduct Was susan: ___ mg Start Date: 12/05/16 Stop Date: 12/05/16 Status: Completed Results BLOOD BANK RESULTS 1 2 3 Most recent to oldest [Reference Range]: A POS *Unknown* (11/29/16 12:30 PM) ABO/Rh Negative (11/29/16 12:30 PM) Antibody Scrn ELECTROLYTES 1 2 3 Most recent to oldest [Reference Range]: 140 mEq/L (12/06/16 5:28 AM) 141 mEq/L (11/29/16 12:30 PM) Sodium Lvl [135-145 mEq/L] 3.5 mEq/L (12/06/16 5:28 AM) 3.2 mEq/L *LOW* (12/05/16 6:14 AM) 3.0 mEq/L 1 *CRIT* (11/29/16 12:30 PM) Potassium Lvl [3.5-5.1 mEq/L] 104 mEq/L (12/06/16 5:28 AM) 103 mEq/L (11/29/16 12:30 PM) Chloride Lvl [95-109 mEq/L] 27 mEq/L (12/06/16 5:28 AM) 29 mEq/L (11/29/16 12:30 PM) CO2 [24-32 mEq/L] 12.5 mEq/L (12/06/16 5:28 AM) 12.0 mEq/L (11/29/16 12:30 PM) AGAP [10.0-20.0 mEq/L] 1Result Comment: Critical Result(s) called to Kelly More RN at 1350 on 11/29/16 by TH. Read back OK. CHEM PANEL 1 2 3 Most recent to oldest [Reference Range]: 0.98 mg/dL (12/06/16 5:28 AM) 0.93 mg/dL (11/29/16 12:30 PM) Creatinine Lvl [0.50-1.40 mg/dL] 60 mL/min/1.73m2 1 *NA* (12/06/16 5:28 AM) 64 mL/min/1.73m2 2 *NA* (11/29/16 12:30 PM) eGFR 12 mg/dL (12/06/16 5:28 AM) 16 mg/dL (11/29/16 12:30 PM) BUN [7-22 mg/dL] 222 mg/dL *HI* (12/06/16 5:28 AM) 91 mg/dL (11/29/16 12:30 PM) Glucose Lvl [70-99 mg/dL] 8.3 mg/dL *LOW* (12/06/16 5:28 AM) 9.1 mg/dL (11/29/16 12:30 PM) Calcium Lvl [8.5-10.5 mg/dL] 1Result Comment: The eGFR is calculated using [...] be mul tiplied by the estimated BMI. HEMATOLOGY 1 2 3 Most recent to oldest [Reference Range]: 9.2 K/CMM (11/29/16 12:30 PM) WBC [3.7-10.4 K/CMM] 4.65 M/CMM (11/29/16 12:30 PM) RBC [4.20-5.40 M/CMM] 12.1 g/dL (12/06/16 5:28 AM) 13.4 g/dL (11/29/16 12:30 PM) Hgb [12.0-16.0 g/dL] 37.0 % (12/06/16 5:28 AM) 40.0 % (11/29/16 12:30 PM) Hct [36.0-48.0 %] 86.0 fL (11/29/16 12:30 PM) MCV [80.0-98.0 fL] 28.8 pg (11/29/16 12:30 PM) MCH [27.0-31.0 pg] 33.4 g/dL (11/29/16 12:30 PM) MCHC [32.0-36.0 g/dL] 13.4 % (11/29/16 12:30 PM) RDW [11.5-14.5 %] 234 K/CMM (11/29/16 12:30 PM) Platelet [133-450 K/CMM] 9.9 fL (11/29/16 12:30 PM) MPV [7.4-10.4 fL] 64.1 % (11/29/16 12:30 PM) Segs [45.0-75.0 %] 21.7 % (11/29/16 12:30 PM) Lymphocytes [20.0-40.0 %] 9.8 % (11/29/16 12:30 PM) Monocytes [2.0-12.0 %] 3.2 % (11/29/16 12:30 PM) Eosinophils [0.0-4.0 %] 1.2 % *HI* (11/29/16 12:30 PM) Basophils [0.0-1.0 %] 5.9 K/CMM (11/29/16 12:30 PM) Segs-Bands # [1.5-8.1 K/CMM] 2.0 K/CMM (11/29/16 12:30 PM) Lymphocytes # [1.0-5.5 K/CMM] 0.9 K/CMM *HI* (11/29/16 12:30 PM) Monocytes # [0.0-0.8 K/CMM] 0.3 K/CMM (11/29/16 12:30 PM) Eosinophils # [0.0-0.5 K/CMM] 0.1 K/CMM (11/29/16 12:30 PM) Basophils # [0.0-0.2 K/CMM] Immunizations Not Given Vaccine Date Status Refusal [...] denies SOB with exertion Assessment and Plan Extracted from: Title: New Discharge Summary * Author: Evelio Allison MD Date: 12/06/16 Discharge Information Discharge Summary Information: Admitting diagnosis, Discharge diagnosis, Discharge medications. Unspecified osteoarthritis, unspecified site (M19.90) Essential (primary) hypertension (I10) Hyperlipidemia, unspecified (E78.5) Restless legs syndrome (G25.81) Hypokalemia (E87.6) Hypothyroidism, unspecified (E03.9) Unilateral primary osteoarthritis, right knee (M17.11) Surgical Procedures: 12/05/16 09:03RIGHT TOTAL KNEE ARTHROPLASTY [id number] Surgeon: Evelio Allison MD (Service: ORT) Discharge [...] their followup appointment in the office. Extracted from: Title: Consult Note Author: Kev Mcmullen MD Date: [...] reviewed Hospitalist is consult and please call [phone] with questions or issues
--- OUTSIDE RECORDS SUMMARY | 2018-11-08 11:40 | XMS REPORT | Summary of Care ---
Author Author [facility] Address Unknown Phone Unavailable Encounter HQ Encntr_alias(FIN) [id number] Date(s): 03/21/17 - 03/22/17 [facility] [address] [place] [address]- [phone] Vital Signs No data available for this section Problem List Condition Effective Dates Status Health Status Informant Dyslipidemia(Confirm Active ed) HTN Active (hypertension)(Confi rmed) Menopause(Confirmed) Resolved Mitral valve Active prolapse(Confirmed) Morbid Active obesity(Confirmed) Osteoarthritis(Confi Active rmed) Restless leg Active syndrome(Confirmed) Allergies, Adverse Reactions, Alerts Substance Reaction Severity Status Macrobid Nausea/vomiting Active Medications metroNIDAZOLE topical 0.75% gel See Instructions, # 45 unknown unit, Refill(s) 1, APPLY A THIN LAYER TO AFFECTED AREA TWICE DAILY, Pharmacy: [facility] [id number] Start Date: 03/21/17 Status: Ordered simvastatin 40 mg oral tablet See Instructions, # 90 tab, TAKE ONE TABLET BY MOUTH DAILY, Pharmacy: [facility] [id number] Start Date: 03/21/17 Status: Ordered Results No data available for [...]
--- OUTSIDE RECORDS SUMMARY | 2018-11-08 11:41 | XMS REPORT | Summary of Care ---
Author Author [facility] Address Unknown Phone Unavailable Encounter HQ Encntr_aliradha(FIN) [id number] Date(s): 07/24/17 - 07/25/[address], [address] [place] [address]- [phone] Vital Signs No data available for this section Problem List Condition Effective Dates Status Health Status Informant Dyslipidemia(Confirm Active ed) HTN Active (hypertension)(Confi rmed) Menopause(Confirmed) Resolved Mitral valve Active prolapse(Confirmed) Morbid Active obesity(Confirmed) Osteoarthritis(Confi Active rmed) Restless leg Active syndrome(Confirmed) Allergies, Adverse Reactions, Alerts Substance Reaction Severity Status Macrobid Nausea/vomiting Active Medications cloNIDine 0.1 mg oral tablet 0.1 mg=1 tab, PO, BID, # 180 tab, 0 Refill(s), Pharmacy: [place] [id number] Start Date: 07/24/17 Stop Date: 07/25/17 Status: Completed Results No data available for [...]
--- OUTSIDE RECORDS SUMMARY | 2018-11-08 11:41 | XMS REPORT | Summary of Care ---
Author Author [facility] Address Unknown Phone Unavailable Encounter HQ Janny_chitra(FIN) [id number] Date(s): 07/02/17 - 07/02/[address] [place] [address]- [phone] Discharge Disposition: Home or Self Care Attending Physician: Azar English DO Vital Signs Most recent to 1 oldest [Reference Range]: Height 162.56 cm (07/02/17 9:20 AM) Temperature Oral 97.6 DegF [96.4-99.1 DegF] (07/02/17 9:20 AM) Blood Pressure 135/78 mmHg [90-140/60-90 mmHg] (07/02/17 9:20 AM) Peripheral Pulse 64 bpm Rate [60-100 bpm] (07/02/17 9:20 AM) Weight 109.091 kg (07/02/17 9:20 AM) Body Mass Index 41.28 m2 (07/02/17 9:20 AM) Problem List Condition Effective Dates Status Health Status Informant Dyslipidemia(Confirm Active ed) HTN Active (hypertension)(Confi rmed) Menopause(Confirmed) Resolved Mitral valve Active prolapse(Confirmed) Morbid Active obesity(Confirmed) Osteoarthritis(Confi Active rmed) Restless leg Active syndrome(Confirmed) Allergies, Adverse Reactions, Alerts Substance Reaction Severity Status Macrobid Nausea/vomiting Active Medications cloNIDine 0.1 mg oral tablet 0.1 mg=1 tab, PO, ONCE, 0 Refill(s) Start Date: 07/02/17 Stop Date: 07/24/17 Status: Completed Results No data available for [...]
--- OUTSIDE RECORDS SUMMARY | 2018-11-08 11:41 | XMS REPORT | Summary of Care ---
Author Author [facility] Address Unknown Phone Unavailable Encounter HQ Encntr_aliradha(FIN) [id number] Date(s): 08/07/17 - 08/08/[address], [address] [place] [address]- [phone] Vital Signs No data available for this section Problem List Condition Effective Dates Status Health Status Informant Dyslipidemia(Confirm Active ed) HTN Active (hypertension)(Confi rmed) Menopause(Confirmed) Resolved Mitral valve Active prolapse(Confirmed) Morbid Active obesity(Confirmed) Osteoarthritis(Confi Active rmed) Restless leg Active syndrome(Confirmed) Allergies, Adverse Reactions, Alerts Substance Reaction Severity Status Macrobid Nausea/vomiting Active Medications indapamide 2.5 mg oral tablet See Instructions, # 30 tab, TAKE ONE TABLET BY MOUTH DAILY, Pharmacy: [place] [id number] Start Date: 08/07/17 Status: Ordered verapamil 180 mg oral tablet, extended release See Instructions, # 90 unknown unit, TAKE ONE TABLET BY MOUTH EVERY MORNING, [facility]: [place] [address] Start Date: 08/07/17 Status: Ordered Results No data available for [...]
--- OUTSIDE RECORDS SUMMARY | 2018-11-08 11:41 | XMS REPORT | Summary of Care ---
Author Author [facility] Address Unknown Phone Unavailable Encounter TOD Davenport(FIN) [id number] Date(s): 01/10/18 - 01/11/18 [place] [address] [address]- [phone] Vital Signs No data available for this [...] BY MOUTH EVERY MORNING, Pha [facility]: [facility] [place] [id number] Start Date: 01/10/18 Stop Date: 05/30/18 Status: Completed verapamil 180 mg oral tablet, extended release See Instructions, # 90 unknown unit, TAKE ONE TABLET BY MOUTH EVERY MORNING, Pha rmacy: [facility] [address] Start Date: 01/10/18 Stop Date: 05/15/18 Status: Discontinued Results No data available for this section Immunizations Not Given Vaccine Date Status Refusal Reason pneumococcal 13-valent vaccine 12/05/16 Not Given Patient Refuses Procedures Procedure Date Related Diagnosis Body Site Status Arthroscopy of knee 2002 Completed Knee replacement1 Completed Mammogram2 Completed ight Social History Social History Type Response Substance [...]
--- OUTSIDE RECORDS SUMMARY | 2018-11-08 11:41 | XMS REPORT | Summary of Care ---
Author Author [facility] Address Unknown Phone Unavailable Care Team Providers Care Toolroom Machinist Name Role Phone Azar English PCP Encounter HQ Ethel(FIN) [id number] Date(s): 08/24/18 - 08/25/18 [place] [address]- [phone] Vital Signs No data available for this section Problem List Condition Effective Dates Status Health Status Informant Dyslipidemia(Confirm Active ed) HTN Active (hypertension)(Confi rmed) Menopause(Confirmed) Resolved Mitral valve Active prolapse(Confirmed) Morbid Active obesity(Confirmed) Osteoarthritis(Confi Active rmed) Restless leg Active syndrome(Confirmed) Allergies, Adverse Reactions, Alerts Substance Reaction Severity Status Macrobid Nausea/vomiting Active Medications indapamide 2.5 mg oral tablet =1 tab, PO, Daily, # 90 tab, Pharmacy: [place] [address] Start Date: 08/24/18 Status: Ordered verapamil 180 mg oral tablet, extended release =1 tab, PO, QAM, # 90 unknown unit, Pharmacy: [place] [address] Start Date: 08/24/18 Status: Ordered Results No data available for [...]
--- OUTSIDE RECORDS SUMMARY | 2018-11-08 11:41 | XMS REPORT | Summary of Care ---
Author Author [facility] Address Unknown Phone Unavailable Encounter HQ Encntr_aliradha(FIN) [id number] Date(s): 07/25/17 - 07/26/[address], [address] [place] [address]- [phone] Vital Signs No data available for this section Problem List Condition Effective Dates Status Health Status Informant Dyslipidemia(Confirm Active ed) HTN Active (hypertension)(Confi rmed) Menopause(Confirmed) Resolved Mitral valve Active prolapse(Confirmed) Morbid Active obesity(Confirmed) Osteoarthritis(Confi Active rmed) Restless leg Active syndrome(Confirmed) Allergies, Adverse Reactions, Alerts Substance Reaction Severity Status Macrobid Nausea/vomiting Active Medications cloNIDine 0.1 mg oral tablet See Instructions, # 60 tab, Refill(s) 1, TAKE ONE TABLET BY MOUTH TWICE A DAY, P harmacy: [facility] [place] [address] Start Date: 07/25/17 Status: Ordered Results No data available for [...]
--- OUTSIDE RECORDS SUMMARY | 2018-11-08 11:41 | XMS REPORT | Summary of Care ---
Author Author [facility] Organization [facility] Address Unknown Phone Unavailable Care Team Providers Care Order Packer Name Role Phone Azar English PCP Encounter HQ Ethel([facility]) [id number] Date(s): 09/29/18 - 09/30/[address] [place], [place] [address]- [phone] Vital Signs No data available for this [...] tab, PO, Daily, # 90 tab, Pharmacy: [place] [address] Start Date: 09/29/18 Status: Ordered Results No data available for this section Immunizations Not Given Vaccine Date Status Refusal Reason pneumococcal 13-valent vaccine 12/05/16 Not Given Patient Refuses Procedures Procedure Date Related Diagnosis Body Site Status Arthroscopy of knee 2002 Completed Knee replacement1 Completed Mammogram2 Completed 1right [address] Social History Social History Type Response Substance [...]
--- OUTSIDE RECORDS SUMMARY | 2018-11-08 11:41 | XMS REPORT | Summary of Care ---
Author Author [facility] Address Unknown Phone Unavailable Encounter HQ Encntr_aliradha(FIN) [id number] Date(s): 07/01/18 - 07/02/18 [facility] [address] [facility] [address] [place], [place] [address]- [phone] Vital Signs No data available for this [...] tab, PO, Daily, # 90 tab, Pharmacy: [place] [address] Start Date: 07/01/18 Status: Ordered Results No data available for this section Immunizations Not Given Vaccine Date Status Refusal Reason pneumococcal 13-valent vaccine 12/05/16 Not Given Patient Refuses Procedures Procedure Date Related Diagnosis Body Site Status Arthroscopy of knee 2002 Completed Knee replacement1 Completed Mammogram2 Completed [place] [address] Social History Social History Type Response Substance [...]
--- OUTSIDE RECORDS SUMMARY | 2018-11-08 11:41 | XMS REPORT | Summary of Care ---
Author Author [facility] Address Unknown Phone Unavailable Care Team Providers Care Credit Union Teller Name Role Phone Azar English PCP Encounter HQ Encntr_chitra(FIN) [id number] Date(s): 03/20/18 - 03/20/18 [place] [address]- [phone] Attending Physician: Azar English DO Vital Signs No data available for this [...] Completed Knee replacement1 Completed Mammogram2 Completed ight [address] Social History Social History Type Response Substance [...]
--- OUTSIDE RECORDS SUMMARY | 2018-11-08 11:41 | XMS REPORT | Summary of Care ---
Author Author [facility] Address Unknown Phone Unavailable Encounter HQ Leandror_chitra(FIN) [id number] Date(s): 05/30/18 - 05/31/[address], [address] [place] [address]- [phone] Vital Signs No data available for this section Problem List Condition Effective Dates Status Health Status Informant Dyslipidemia(Confirm Active ed) HTN Active (hypertension)(Confi rmed) Menopause(Confirmed) Resolved Mitral valve Active prolapse(Confirmed) Morbid Active obesity(Confirmed) Osteoarthritis(Confi Active rmed) Restless leg Active syndrome(Confirmed) Allergies, Adverse Reactions, Alerts Substance Reaction Severity Status Macrobid Nausea/vomiting Active Medications cloNIDine 0.1 mg oral tablet =1 tab, PO, BID, # 180 tab, 1 Refill(s), Pharmacy: [place] [address] Start Date: 05/30/18 Status: Ordered indapamide 2.5 mg oral tablet =1 tab, PO, Daily, # 90 tab, Pharmacy: [place] [address] Start Date: 05/30/18 Status: Ordered metroNIDAZOLE topical 0.75% gel See Instructions, # 45 unknown unit, APPLY A THIN LAYER TO AFFECTED AREA TWICE D JOSSELINE, Pharmacy: [place] [address] Start Date: 05/30/18 Status: Ordered verapamil 180 mg oral tablet, extended release =1 tab, PO, QAM, # 90 unknown unit, Pharmacy: [place] [address] Start Date: 05/30/18 Status: Ordered Results No data available for [...]
--- OUTSIDE RECORDS SUMMARY | 2018-11-08 11:41 | XMS REPORT | Summary of Care ---
Author Author [facility] Address Unknown Phone Unavailable Encounter HQ Encntr_alias(FIN) [id number] Date(s): 09/13/17 - 09/14/[address], [address] [place] [address]- [phone] Vital Signs No data available for this section Problem List Condition Effective Dates Status Health Status Informant Dyslipidemia(Confirm Active ed) HTN Active (hypertension)(Confi rmed) Menopause(Confirmed) Resolved Mitral valve Active prolapse(Confirmed) Morbid Active obesity(Confirmed) Osteoarthritis(Confi Active rmed) Restless leg Active syndrome(Confirmed) Allergies, Adverse Reactions, Alerts Substance Reaction Severity Status Macrobid Nausea/vomiting Active Medications indapamide 2.5 mg oral tablet 2.5 mg=1 tab, PO, Daily, # 90 tab, 0 Refill(s), Pharmacy: [place] [address] Start Date: 09/13/17 Status: Ordered Results No data available for [...]
--- OUTSIDE RECORDS SUMMARY | 2018-11-08 11:41 | XMS REPORT | Summary of Care ---
Author Author [facility] Organization [facility] Address Unknown Phone Unavailable Encounter HQ Ethel(FIN) [id number] Date(s): 06/24/18 - 06/24/18 [facility] [address] [place] [address]- [phone] Discharge Disposition: Home or Self Care Attending Physician: Risa Shepherd MD Referring Physician: Risa Shepherd MD Vital Signs No data available for [...] Completed Knee replacement1 Completed Mammogram2 Completed 1right [address] Social History Social History Type Response Substance [...]
--- OUTSIDE RECORDS SUMMARY | 2018-11-08 11:41 | XMS REPORT | Summary of Care ---
Author Author [facility] Address Unknown Phone Unavailable Encounter HQ Encntr_alias(FIN) [id number] Date(s): 05/29/17 - 05/30/17 [place] [address] [facility], [address] [place] [address]- [phone] Vital Signs No data available for this [...] QAM, # 90 tab, 0 Refill(s), Pharmacy: [place] [id number] Start Date: 05/29/17 Stop Date: 08/07/17 Status: Completed Results No data available for [...]
--- OUTSIDE RECORDS SUMMARY | 2018-11-08 11:41 | XMS REPORT | Summary of Care ---
Author Author [facility] Organization [facility] Address Unknown Phone Unavailable Encounter TOD Davenport(FIN) [id number] Date(s): 05/27/18 - 05/27/18 [facility] [address] [facility] [place] [phone] Discharge Disposition: Home or Self Care Attending Physician: Dimas De Guzman MD Referring Physician: Larry Francisco MD Vital Signs Most recent to 1 oldest [Reference Range]: Height 162.56 cm (05/27/18 8:07 AM) Temperature Oral 98.2 DegF [96.4-99.1 DegF] (05/27/18 8:07 AM) Blood Pressure 147/84 mmHg [90-140/60-90 mmHg] *HI* (05/27/18 8:07 AM) Peripheral Pulse 80 bpm Rate [60-100 bpm] (05/27/18 8:07 AM) Weight 103.182 kg (05/27/18 8:07 AM) Body Mass Index 39.05 m2 (05/27/18 8:07 AM) Problem List Condition Effective Dates Status Health Status Informant Dyslipidemia(Confirm Active ed) HTN Active (hypertension)(Confi rmed) Menopause(Confirmed) Resolved Mitral valve Active prolapse(Confirmed) Morbid Active obesity(Confirmed) Osteoarthritis(Confi Active rmed) Restless leg Active syndrome(Confirmed) Allergies, Adverse Reactions, Alerts Substance Reaction Severity Status Macrobid Nausea/vomiting Active Medications No Known Medications Results No data available for this section Immunizations Not Given Vaccine Date Status Refusal Reason pneumococcal 13-valent vaccine 12/05/16 Not Given Patient Refuses Procedures Procedure Date Related Diagnosis Body Site Status Arthroscopy of knee 2002 Completed Knee replacement1 Completed Mammogram2 Completed 1right [address] Social History Social History Type Response Substance [...]
--- OUTSIDE RECORDS SUMMARY | 2018-11-08 11:41 | XMS REPORT | Summary of Care ---
Author Author [facility] Organization [facility] Address Unknown Phone Unavailable Encounter HQ Sandintr_aliradha(FIN) [id number] Date(s): 05/29/18 - 05/30/18 [facility] [address] [place] [phone] Vital Signs No data available for this [...] Completed Knee replacement1 Completed Mammogram2 Completed 1right [address] Social History Social History Type Response Substance [...]
--- OUTSIDE RECORDS SUMMARY | 2018-11-08 11:41 | XMS REPORT | Summary of Care ---
Author Author [facility] 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1 MG Oral Tablet * Refills: 0 Active rOPINIRole HCl - 1 MG Oral Tablet * Refills: 0 Active rOPINIRole HCl - 0.5 MG Oral Tablet * Refills: 0 Active Metrogel 0.75 % Gel * Refills: 0 Active Tylenol Arthritis Pain 8 Hour TBCR * Refills: 0 Active Aspirin 81 MG TABS * Refills: 0 Active Iron TABS * Refills: 0 Active HYDROcodone-Acetaminophen 10-325 MG Oral Tablet take 1-2 tablets every 6 hour prn pain * Quantity: 60 Refills: 0 DONTA M.DALLY [place] * Start : 20-Dec-2016 Active Diclofenac Sodium 1 % Transdermal Gel APPLY TO LOWER EXTREMITIES, 4 GM OF GEL TO AFFECTED AREA 4 TIMES DAILY. DO NOT APPLY MORE THAN 16 GM DAILY TO ANY ONE AFFECTED JOINT. * Quantity: 5 Refills: 1 DONTA M.ALLY Sale[place] * Start : 31-Jan-2017 Active 100 GM Tube HYDROcodone-Acetaminophen 10-325 MG Oral Tablet take 1-2 tablets every 6 hour prn pain * Quantity: 40 Refills: 0 DONTA M.ALLY Sale[place] * Start : 31-Jan-2017 Active Gabapentin 300 MG Oral Capsule TAKE ONE CAPSULE BY MOUTH THREE TIMES A DAY * Quantity: 90 Refills: 1 DONTA M.ALLY Sale[place] * Start : 21-Jun-2017 Active Gabapentin 300 MG Oral Capsule TAKE 1 CAPSULE 3 TIMES DAILY. * Quantity: 90 Refills: 2 DONTA M.DALLY [place] * Start : 28-May-2017 Active Meloxicam 15 MG Oral Tablet TAKE 1 TABLET BY MOUTH DAILY * Quantity: 30 Refills: 0 ALINA Gilbert.NIRAJ Saleem * Start : 03-Sep-2018 Active Allergies and Adverse Reactions Name Dates Details Bactrim (Allergy) Status: Active Macrobid (Allergy) Status: Active Past Medical History Name Dates Details History of hypertension (V12.59, Z86.79) Status: Resolved Procedures Procedure Dates Details History of Knee Surgery Completed Immunization Name Dates Details Immunizations not documented Family History Name Dates Details No pertinent family history (V49.89, Z78.9) Status: Active Name Dates Details No pertinent family history (V49.89, Z78.9) Status: Active Social History Name Dates Details - Status: Name Dates Details Never smoker Vital Signs Date Test Result Details No Known Vitals to report Results Date Description Value Details Results not documented Plan of Care Name Dates Details Planned Observations Planned Goals not documented Planned Encounters Appointment; NIRAJ FULLER M.D. On: 25-Nov-2018 10:15 Interventions Provided Medication Changes* Meloxicam 15 MG Oral Tablet - Renew Instructions Name Dates Details Instructions not documented Encounters Appointment; ALLY LONGO M.D. Encounter Diagnosis: Problem [...] Diagnosis: Problem not documented On: 18-Jul-2017 10:30 Appointment; ALLY LONGO M.D. Encounter Diagnosis: Problem not documented On: 16-Jan-2018 10:30 Appointment; ALLY LONGO M.D. Encounter Diagnosis: Problem not documented On: 20-Mar-2018 9:30 Appointment; NIRAJ FULLER M.D. Encounter Diagnosis: Problem not documented On: 26-Aug-2018 9:30 Appointment; NIRAJ FULLER M.D. Encounter Diagnosis: Problem not documented On: 02-Sep-2018 10:00 Appointment; NIRAJ FULLER M.D. Encounter Diagnosis: Problem not documented On: 14-Oct-2018 9:45
--- OUTSIDE RECORDS SUMMARY | 2018-11-08 11:41 | XMS REPORT | Summary of Care ---
Author Author [facility] Address Unknown Phone Unavailable Encounter HQ Encntr_aliradha(FIN) [id number] Date(s): 07/05/17 - 07/06/[address], [address] [place] [address]- [phone] Vital Signs No data available for this [...] TAKE ONE TABLET BY MOUTH DAILY, Pharmacy: [facility] [employer] Start Date: 07/05/17 Stop Date: 08/07/17 Status: Completed simvastatin 40 mg oral tablet See Instructions, # 90 tab, TAKE ONE TABLET BY MOUTH DAILY, Pharmacy: [facility] [employer] Start Date: 07/05/17 Status: Ordered Results No data available for [...]
--- OUTSIDE RECORDS SUMMARY | 2018-11-08 11:41 | XMS REPORT | Summary of Care ---
Author Author [facility] Address Unknown Phone Unavailable Encounter HQ Encntr_aliradha(FIN) [id number] Date(s): 07/24/17 - 07/25/[address], [address] [place] [address]- [phone] Vital Signs No data available for this [...] BID, # 180 tab, 0 Refill(s), Pharmacy: [place] [id number] Start Date: 07/24/17 Stop Date: 07/25/17 Status: [...]
--- OUTSIDE RECORDS SUMMARY | 2018-11-08 11:41 | XMS REPORT | Summary of Care ---
Author Author [facility] Organization [facility] Address Unknown Phone Unavailable Encounter HQ Janny_chitra(FIN) [id number] Date(s): 05/27/18 - 05/27/18 [facility] [address] [place] [address]- Discharge Disposition: Home or Self Care Attending Physician: Risa Shepherd MD Vital Signs No [...] Completed Knee replacement1 Completed Mammogram2 Completed 1right [address] Social History Social History Type Response Substance [...]
--- OUTSIDE RECORDS SUMMARY | 2018-11-08 11:41 | XMS REPORT | Summary of Care ---
Author Author [facility] Address Unknown Phone Unavailable Encounter HQ Leandror_chitra(FIN) [id number] Date(s): 05/15/18 - 05/15/[address], [address] [place] [address]- [phone] Discharge Disposition: Home or Self Care Attending Physician: Azar English DO Vital Signs Most recent to 1 oldest [Reference Range]: Height 160.02 cm (05/15/18 7:58 AM) Temperature Oral 98.1 DegF [96.4-99.1 DegF] (05/15/18 7:58 AM) Blood Pressure 136/69 mmHg [90-140/60-90 mmHg] (05/15/18 7:58 AM) Peripheral Pulse 73 bpm Rate [60-100 bpm] (05/15/18 7:58 AM) Weight 100.455 kg (05/15/18 7:58 AM) Body Mass Index 39.23 m2 (05/15/18 7:58 AM) Problem List Condition Effective Dates Status Health Status Informant Dyslipidemia(Confirm Active ed) HTN Active (hypertension)(Confi rmed) Menopause(Confirmed) Resolved Mitral valve Active prolapse(Confirmed) Morbid Active obesity(Confirmed) Osteoarthritis(Confi Active rmed) Restless leg Active syndrome(Confirmed) Allergies, Adverse Reactions, Alerts Substance Reaction Severity Status Macrobid Nausea/vomiting Active Medications Vitamin B12 0 Refill(s) Start Date: 05/15/18 Status: Ordered Results No data available for this section Immunizations Not Given Vaccine Date Status Refusal Reason pneumococcal 13-valent vaccine 12/05/16 Not Given Patient Refuses Procedures Procedure Date Related Diagnosis Body Site Status Arthroscopy of knee 2002 Completed Knee replacement1 Completed Mammogram2 Completed 1right [address] Social History Social History Type Response Substance Abuse Use: None. Exercise Exercise duration: 0.1 Alcohol Never, Previous treatment: None. Smoking Status Never smoker; Exposure to Tobacco Smoke None; Cigarette Smoking Last 365 Days No; Reg Smoking Cessation Counseling No entered on: 05/15/18 1no exercise due to pain, denies SOB with exertion Assessment and Plan No data available for this section
--- OUTSIDE RECORDS SUMMARY | 2018-11-08 11:41 | XMS REPORT | Summary of Care ---
Author Author [facility] Address Unknown Phone Unavailable Encounter HQ Encntr_alias(FIN) [id number] Date(s): 10/28/17 - 10/29/[address], [address] [place] [address]- [phone] Vital Signs No data available for this [...] TABLET BY MOUTH EVERY MORNING, Pha [facility]: [facility] [place] [id number] Start Date: 10/28/17 Stop Date: 01/10/18 Status: Completed Results No data available for this section Immunizations Not Given Vaccine Date Status Refusal Reason pneumococcal 13-valent vaccine 12/05/16 Not Given Patient Refuses Procedures Procedure Date Related Diagnosis Body Site Status Arthroscopy of knee 2002 Completed Knee replacement1 Completed Mammogram2 Completed [facility] [address] Social History Social History Type Response Substance [...]
--- OUTSIDE RECORDS SUMMARY | 2018-11-08 11:41 | XMS REPORT ---
Author Author [facility] Address Unknown Phone Unavailable Care Team Providers Care [employer] Engineer Name Role Phone Unavailable Unavailable Problems This patient has no known problems. Allergies, Adverse Reactions, Alerts This patient has no known allergies or adverse reactions. Medications This patient has no known medications. Encounters Start Date/Time End Date/Time Encounter Type Admission Type Attending Clinicians [facility] Facility Care Department Encounter ID 2018-09-04 10:02:00 2018-09-04 05:52:00 Inpatient E [facility] [id number]
--- OUTSIDE RECORDS SUMMARY | 2018-11-08 11:41 | XMS REPORT | Summary of Care ---
Author Author [facility] Organization [facility] Address Unknown Phone Unavailable Care Team Providers Care [employer] Staff Officer Name Role Phone Azar English PCP Encounter [facility] Ethel([facility]) [id number] Date(s): 09/02/18 - 09/03/[address] [place], [place] [phone]- [phone] Vital Signs No data available for this section Problem List Condition Effective Dates Status Health Status Informant Dyslipidemia(Confirm Active ed) HTN Active (hypertension)(Confi rmed) Menopause(Confirmed) Resolved Mitral valve Active prolapse(Confirmed) Morbid Active obesity(Confirmed) Osteoarthritis(Confi Active rmed) Restless leg Active syndrome(Confirmed) Allergies, Adverse Reactions, Alerts Substance Reaction Severity Status Macrobid Nausea/vomiting Active Medications potassium chloride 8 mEq oral capsule, extended release =1 cap, PO, BID, # 60 unknown unit, Refill(s) 2, Pharmacy: [facility] [id number] Start Date: 09/02/18 Status: Suspended Results No data available for this section Immunizations Not Given Vaccine Date Status Refusal Reason pneumococcal 13-valent vaccine 12/05/16 Not Given Patient Refuses Procedures Procedure Date Related Diagnosis Body Site Status Arthroscopy of knee 2002 Completed Knee replacement1 Completed Mammogram2 Completed 1right 05141 Social History Social History Type Response Substance [...]
== END 2018-11-08 12:58 | disposition home or self-care (01) ==
LOC: FSED 11:35
DX: N30.91 Cystitis, unspecified with hematuria (principal)
CPT/HCPCS: 81003; 87086; 99283

== ENCOUNTER 2021-09-22 17:38 | Emergency (ER) | payer MEDICARE ==
[~2021-09-22] VITALS: Ht 162.6 cm; Wt 125.4 kg
[2021-09-22] MEDS ORDERED: BUMETANIDE1 MG PO (18:10)
[2021-09-22] MEDS ORDERED: METOPROLOL SUCC50 MG PO (18:10)
[2021-09-22] MEDS ORDERED: ROPINIROLE HCL1 MG PO (18:10)
[2021-09-22] MEDS ORDERED: SIMVASTATIN80 MG PO (18:10)
[2021-09-22] MEDS ORDERED: TIZANIDINE HCL6 MG (18:10)
[2021-09-22] MEDS ORDERED: NEURONTIN300 MG PO (18:10)
[2021-09-22] MEDS ORDERED: ASPIRIN EC81 MG PO (18:10)
[2021-09-22] MEDS ORDERED: LOSARTAN POTASS50 MG PO (18:10)
[2021-09-22] MEDS ORDERED: SPIRONOLACTONE100 MG (18:10)
[2021-09-22] MEDS ORDERED: CEFUROXIME500 MG PO (19:23)
[2021-09-22] MEDS ORDERED: LIDOCAINE HCL 1% LOCAL INJ 20 ML VIAL ONE (19:28)
[2021-09-22] MEDS ORDERED: CEFTRIAXONE 500 MG VIAL IM ONE (19:30)
[2021-09-22] MEDS ORDERED: CEFTRIAXONE 1 GM VIAL IM ONE (19:30)
[2021-09-22 19:39] VITALS: BP 146/71
== END 2021-09-22 19:39 | disposition home or self-care (01) ==
LOC: FSED 17:51
DX: N30.01 Acute cystitis with hematuria (principal); I10 Essential (primary) hypertension; E78.5 Hyperlipidemia, unspecified; M54.9 Dorsalgia, unspecified; G89.29 Other chronic pain; Z96.653 Presence of artificial knee joint, bilateral
CPT/HCPCS: 81003; 87086; 96372; 99282; J0696; J2001

== ENCOUNTER 2022-08-19 00:19 | Emergency (ER) | payer MEDICARE ==
[~2022-08-19] VITALS: Ht 162.6 cm; Wt 122.5 kg
[~2022-08-19 00:19] MED LIST: ASPIRIN EC81 MG PO; BUMETANIDE1 MG PO; CEFUROXIME500 MG PO; LOSARTAN POTASS50 MG PO; METOPROLOL SUCC50 MG PO; NEURONTIN300 MG PO; ROPINIROLE HCL1 MG PO; SIMVASTATIN80 MG PO; SPIRONOLACTONE100 MG; TIZANIDINE HCL6 MG
[2022-08-19] MEDS ORDERED: TRIMETHOPRIM/SULFAMETHOXAZOLE 160-800 MG TAB ONE (00:53)
[2022-08-19] MEDS ORDERED: CEFUROXIME250 MG PO (01:07)
[2022-08-19] MEDS ORDERED: PYRIDIUM100 MG PO (01:07)
[2022-08-19 01:15] VITALS: BP 157/72
== END 2022-08-19 01:15 | disposition home or self-care (01) ==
LOC: FSED 00:23
DX: R30.0 Dysuria (principal); N39.0 Urinary tract infection, site not specified; R31.9 Hematuria, unspecified; I10 Essential (primary) hypertension; I25.10 Atherosclerotic heart disease of native coronary artery without angina pectoris; E78.5 Hyperlipidemia, unspecified; K21.9 Gastro-esophageal reflux disease without esophagitis; E66.01 Morbid (severe) obesity due to excess calories; M54.9 Dorsalgia, unspecified; G89.29 Other chronic pain
CPT/HCPCS: 81003; 87086; 87186; 99283

== ENCOUNTER 2023-05-20 16:14 | Emergency (ER) | payer MEDICARE ==
[~2023-05-20] VITALS: Ht 162.6 cm; Wt 124.0 kg
[~2023-05-20 16:14] MED LIST changes: +CEFUROXIME250 MG PO; +PYRIDIUM100 MG PO; -TIZANIDINE HCL6 MG; +TIZANIDINE HCL6 MG PO
[2023-05-20] MEDS ORDERED: [UNRECOGNIZED DRUG - OTHER] (17:09)
[2023-05-20] MEDS ORDERED: ARTHRITIS PAIN650 M2 (17:09)
[2023-05-20] MEDS ORDERED: CEPHALEXIN MONOHYDRATE 250 MG CAP ONE (17:18)
[2023-05-20 17:24] VITALS: O2SAT 97
[2023-05-20] MEDS: CEPHALEXIN MONOHYDRATE 250 MG CAP PO SCH (17:36)
== END 2023-05-20 17:20 | disposition home or self-care (01) ==
LOC: FSED 16:18
DX: R30.0 Dysuria (principal); N39.0 Urinary tract infection, site not specified; R31.9 Hematuria, unspecified; I10 Essential (primary) hypertension; E78.5 Hyperlipidemia, unspecified; M54.9 Dorsalgia, unspecified; G89.29 Other chronic pain; I25.10 Atherosclerotic heart disease of native coronary artery without angina pectoris; E66.01 Morbid (severe) obesity due to excess calories
CPT/HCPCS: 81003; 99283